=== PATIENT | male | born 1950 | race Caucasian/White ===

== ENCOUNTER 2018-05-29 14:33 | Inpatient (IN) | payer MEDICARE, SELFPAY ==
[2018-05-23 11:11] VITALS: BP 128/61; PULSE 56; RESP 18; TEMP 36.7; O2SAT 99; BMI 27.1
[2018-05-23 12:25] LABS: ALB/GLOB Ratio 0.9 RATIO (0.9-2.4); AST(SGOT) 23 U/L (15-37); Alanine Aminotransfer ALT/SGPT 27 U/L (16-61); Albumin, Serum 3.5 g/dL (3.2-5.0); Alkaline Phosphatase 68 U/L (45-117); Anion Gap 7 (5-15); BUN 16 mg/dL (7-18); BUN/Creat Ratio 18.2 RATIO (10-20); Calcium,Total 9.1 mg/dL (8.5-10.1); Chloride 107 mmol/L (98-107); Creatinine, Serum 0.88 mg/dL (0.70-1.30); EST Glomerular Filtration Rate 92 mL/min (>60); Est Glom Filt Rate - Afr Amer 111 mL/min (>60); Estimated Creatinine Clearance 82.95 ml/min; Glucose 103 mg/dL (74-106); Potassium 4.1 mmol/L (3.5-5.1); Protein, Total 7.5 g/dL (6.4-8.2); Sodium Level 139 mmol/L (136-145)
[2018-05-23 14:06] LABS: Absolute Lymphocyte Count 1.96 X10^3/ul (0.83-4.51); Absolute Neutrophil Count 4.9 X10^3/uL (2.0-7.7); Basophil# 0.02 X10^3/uL; Basophil% 0.3 % (0-1); Eosinophil# 0.23 X10^3/uL; Eosinophils% 2.9 % (0-5); Hematocrit 44.7 % (40-54); Lymphocyte # 1.96 X10^3/ul (4.0); Lymphocyte % 25.1 % (19-41); Mean Corp Hgb Conc 33.6 g/gl (32-36); Mean Corpuscular Hgb 31.8 pg (27.0-32.0); Mean Corpuscular Volume 94.7 fL (80-94); Mean Platelet Vol. 10.2 fl (6.2-12.0); Monocyte# 0.69 X10^3/uL; Monocyte% 8.8 % (0-10); Neutrophil # 4.87 X10^3/uL (2.7-7.7); Neutrophil % 62.5 % (47-70); Platelet Count 176 K/mm3 (150-450); RBC Distribution Width CV 13.6 % (11.6-14.6); RBC Distribution Width SD 45.9 fl (35.1-43.9); Red Blood Count 4.72 M/mm3 (4.6-6.2); White Blood Count 7.8 K/mm3 (4.4-11.0)
[2018-05-23 14:07] LABS: POSITIVE COUNT NO; POSITIVE DIFFERENTIAL NO; POSITIVE MORPHOLOGY NO
[2018-05-29] VITALS (14 sets, daily range): BP systolic 74–130; BP diastolic 49–93; PULSE 63–118; RESP 15–18; TEMP 35.3–36.5; O2SAT 40–100; BMI 26.8
--- NOTE | 2018-05-29 | KID_PTH ---
PATIENT: HEATHER ESTRADA LOC: [facility] U#:[id number] AGE/SX: 68/M ROOM: [facility] RE05/29/[address]: Dr. Claude Khan MD : 1950 BED: 1 DIS: 06/03/2018 SPEC #: [id number] RECD: 05/30/18 12:13 STATUS: JOSE REDarlene #: [id number] JOANIE: 05/29/18 00:[address]: Claude Khan DEPT: SURGICAL PATHOLOGY RECD BY: Stephen Garces ENTERED: 05/30/18 12:14 SP TYPE: KIDNEY OTHR DR: MD Dr. Kenton Abernathy MD Tissues: A - Kidney, NOS B - Kidney, NOS Procedures: Surgery Specimen Level V HEADER OPERATION: Laparoscopic robotic partial left nephrectomy PRE-OP DIAGNOSIS: Left renal mass TISSUE SUBMITTED: A) Left partial nephrectomy, B) Left complete nephrectomy MICROSCOPIC DIAGNOSIS A. Left renal mass, partial nephrectomy: Clear cell renal cell carcinoma. See comment below. B. Left kidney, radical nephrectomy: Mild arterionephrosclerosis and minimal chronic inflammation. No evidence of malignancy. See comment below. ROE:taylor 06/03/18 COMMENT KIDNEY CANCER SUMMARY (COMBINED SPECIMENS A and B): Procedure - Specimen A- partial nephrectomy, Specimen B-radical nephrectomy Specimen laterality - Left Tumor site - Middle Tumor size ? Greatest dimension 5.5 cm Additional dimensions 5 x 5 cm Tumor focality ? Unifocal Macroscopic extent of tumor ? tumor limited to kidney Histologic type - clear cell renal cell carcinoma Sarcomatoid features ? Not identified Histologic grade (Vera nuclear grade) ? G2 Microscopic tumor extension ? Tumor limited to kidney Margins ? Margins uninvolved by invasive carcinoma Lymph-Vascular invasion ? Not identified Regional Lymph Nodes pNX: Regional lymph nodes cannot be assessed. No lymph nodes identified. Pathologic findings in nonneoplastic kidney - Mild arterionephrosclerosis and mild chronic inflammation. PATHOLOGIC STAGE: pT1b, NX, MX The above summary is in compliance with [employer] (CAP) Cancer Protocols Checklist and [place] Joint Committee on Cancer (AJCC), Staging Manual, 8th Ed. MICROSCOPIC DESCRIPTION Slides are reviewed. GROSS DESCRIPTION A ? Received in fixative is one container labeled with the patient's name and designated left renal mass. The specimen consists of an ovoid pink-watkins mass measuring 5.2 x 5 x 5 cm and weighing 49.6 grams. Portions of this mass appear to consist of renal parenchyma that is inked blue and perinephric fat. The renal parenchyma is inked blue. The remainder of the specimen is inked in black. Sections of the mass reveal watkins-yellow hemorrhagic cut surfaces. City Editor sections are submitted in 7 cassettes as follows: 1-2 - Tumor in relationship to inked presumed renal parenchyma, 3 - Tumor in relationship to perinephric fat, inked, 4-8 - Additional sections of tumor. B - Received in fixative is one container labeled with the patient's name and designated left nephrectomy. The specimen consists of a kidney that is surrounded by yellow fatty tissue. The specimen measures 21 x 15 x 8.5 cm and weighs 883 grams and consists of a kidney measuring 12 x 6 x 5.2 cm. A 3.5 cm segment of distal ureter is present. Dissection of the veins does not reveal intravascular presence of neoplasm. The renal pelvis and renal sinuses are grossly unremarkable. In the hilum of the kidney is an area of disruption with clotted blood measuring 8 x 5 x 3 cm. Dissection of this area does not reveal mass lesions. Dissection of the pelvocaliceal system does not reveal mass lesions. Dissection of the kidney proper does not reveal mass lesions. Sections of the perinephric fat do not reveal mass lesions. 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 City Editor sections are submitted as follows: 1 - Ureteric and vascular margins of resection, 2 - Renal sinus, 3 - Renal pelvis, 4 & 5 - Perinephric fat, 6-7 - Kidney. AM:sp 05/31/18 TC: 0 CPT: 89813 x2
[2018-05-29] MEDS: Cefazolin 2 GM in 0.9% Normal Saline 100 ML IV (14:37)
[2018-05-29] MEDS: Bupivacaine Mpf 0.5% 30 ML VIAL (18:52)
--- NOTE | 2018-05-29 18:55 | PCM.OPRPT ---
Report of Operation Date of Procedure: 05/29/18 Pre-Operative Diagnosis: Left large renal mass Post-Operative Diagnosis: Same Surgery/Procedure Performed:: Left laparoscopic robotic assisted partial nephrectomy intraoperative ultrasound Description of Surgical Findings:: 68-year-old male was found to have a 5 cm tumor in the upper pole anterior of the left kidney the tumor is near the hilum but amenable to a partial nephrectomy therefore recommended we proceed with a laparoscopic robotic assisted partial nephrectomy we also talked about the possibility of having to radical nephrectomy. 68-year-old male taken back to the operating room after smooth induction of general anesthesia he was placed supine on the table he underwent an intubation Fabian catheter was placed patient was then positioned full flank left side up the abdomen was shaved prepped and draped in usual sterile fashion I went into the made in the small incision in this and the skin and then use a Veress needle and into the entered the peritoneal cavity filled the peritoneal cavity with CO2 gas I then placed a camera trocar into the peritoneal cavity I then placed my left robotic trocar my right robotic trocar and an and a second right robotic trocar to help with retracting the hilum. We then placed an air seal port by the umbilicus and we proceeded with the dissection first the colon was identified the white line of Toldt was was identified we incised the white line of Toldt and reflected the colon off the kidney felt following the plane between the colon fat and the Gerota's fat once the colon was completely released off the kidney laterally than went back to the kidney dissected the colon off and eventually I encountered the tail of the Gerota's fascia identified the gonadal vein and ureter elevated this up and then dissected underneath the Gerota's fat fat and because of the psoas muscle March my way up along the aorta and eventually identified the renal vein I then identified the renal artery which is superior to the renal vein and the renal artery was freed enough to allow for clip to go on it then once the hilum was dissected out the renal artery was identified and dissected out then I went to the kidney and went to the tumor and used for intraoperative ultrasound to ultrasound to do performed ultrasonography of the kidney took some time to identify the tumor that was coming off in the anterior pole facing medially I then opened up the fascia over the Gerota's fascia down dissected down to the kidney parenchyma and then I dissected the fat off the kidney until I got to the tumor edge then I dissected the fat off the tumor itself. Then I dissected the anterior portion of the tumor off the kidney capsule posterior was very hard to get to it was an anterior tumor right at the hilum right next to the vein and right next to the artery I had to retract the tumor away from the vein artery to dissect medially. Once I then done and left dissection to start the procedure anteriorly I used the ultrasound to luis fernando out my approach to the tumor making sure that I would have a complete negative margin and was deep enough into the kidney I then clamped the artery with a long bulldog and also use a short bulldog the double clamp the renal artery with this then the started the cutting into the parenchyma following the markings on the capsule of the kidney and went deep into the kidney deep into the sinus and then started rolling the tumor out of the kidney either retract the renal vein and artery medially and then dissected along this plane between the tumor and renal artery and vein cutting the renal tumor off the renal artery and vein and then transected the posterior aspect of the capsule and then the tumor was free completely a defect was in the anterior upper pole of the kidney the tumor was immediately put in Endo Catch bag I then ran the base of the resection with 3-0 Vicryl and V lock stitches so I had her run the base to close it up very nicely I then placed FloSeal in the base and Surgicel and bolster stitches, the bulldog on the artery was removed and the blood supply to the kidney was restored there was good flow to the kidney and no bleeding from the resection site we then transferred the end of the tail of the Endo Catch back to the extraction site we extracted the tumor through the lower lower lower abdominal port site we had to open up this port site about 3 cm and then we closed the port site with interrupted 0 Vicryls I checked the tumor then and the tumor was and and visual inspection had complete resection with no violation of the tumor a good margin in the base so so grossly was a complete resection and this will be sent off for pathology after closing the extraction site and then we went back into the abdomen we inspected inspected the resection site there is no bleeding I covered the kidney back up with the Gerota's fat and stitch to back over the kidney to keep the kidney practice protected it was about 15 minutes to extract the tumor and in that time there is no pneumoperitoneum and there was no bleeding from the resection site. We then closed the variceal port with a 1012 Trace Reynolds stitch and then we closed the camera port with a Trace Reynolds stitch using 0 Vicryl we then all the port sites were closed with subcuticular stitches the patient's anesthetic is currently being reversed is clinically stable think back to PACU in good condition. Type of Anesthesia:: General Drains: fabian Estimated Blood Loss (mL): 500cc - Admit VTE Documentation VTE Present on Admission: No VTE Mechan Device Prophylaxis: SCD's VTE Pharm Prophylaxis ordered?: No
[2018-05-29 19:46] LABS: Hematocrit 40.2 % (40-54); Hemoglobin 13.5 g/dl (13.0-16.5); Mean Corp Hgb Conc 33.6 g/gl (32-36); Mean Corpuscular Hgb 32.5 pg (27.0-32.0); Mean Corpuscular Volume 96.9 fL (80-94); Mean Platelet Vol. 9.4 fl (6.2-12.0); Platelet Count 207 K/mm3 (150-450); RBC Distribution Width CV 14.1 % (11.6-14.6); RBC Distribution Width SD 48.2 fl (35.1-43.9); Red Blood Count 4.15 M/mm3 (4.6-6.2); Scan Indicated on CBC? Y/N NO; White Blood Count 12.3 K/mm3 (4.4-11.0)
[2018-05-29 19:59] LABS: Anion Gap 10 (5-15); BUN 14 mg/dL (7-18); BUN/Creat Ratio 12.6 RATIO (10-20); Calcium,Total 8.5 mg/dL (8.5-10.1); Chloride 109 mmol/L (98-107); Creatinine, Serum 1.11 mg/dL (0.70-1.30); EST Glomerular Filtration Rate 70 mL/min (>60); Est Glom Filt Rate - Afr Amer 85 mL/min (>60); Estimated Creatinine Clearance 65.77 ml/min; Glucose 159 mg/dL (74-106); Potassium 4.5 mmol/L (3.5-5.1); Sodium Level 142 mmol/L (136-145)
[2018-05-29] MEDS: Ketorolac 15 MG/ML Vial IV (20:00)
[2018-05-29] MEDS: 0.45% Normal Saline 1,000 ML 75 ML IV (20:15)
--- NOTE | 2018-05-29 22:31 | PCM.PN.BLA ---
Progress Note 68-year-old male status post a partial nephrectomy with a hilar tumor, surgery went well and was dry during the case only 500 cc blood loss. In the PACU his hemoglobin was 13 he was transferred to the floor in good condition and then within an hour he deteriorated blood pressure dropped suddenly required fluid boluses became diaphoretic and pale at this point I have called in the team and we have taken back for emergency exploration for postoperative bleeding appears to be bleeding from the operative site.
--- NOTE | 2018-05-29 22:31 | NURSING ---
Dr. Khan here to see patient, will take to OR, bp keeps dropping 68/41, heart rate now 118.
[2018-05-29] MEDS: 0.9% Normal Saline 1,000 ML 999 ML IV (22:37)
[2018-05-29 22:40] LABS: Hematocrit 30.3 % (40-54); Hemoglobin 9.8 g/dl (13.0-16.5)
--- NOTE | 2018-05-29 23:21 | NURSING ---
Called patient's brother Adán Jean Baptiste, located in [place]. Informed him that his brother was taken back to OR at approximately 2300. He asked to be called with updates after OR on his cell phone. He said it would be okay to leave a message on cell phone.
[2018-05-30] VITALS (60 sets, daily range): BP systolic 61–151; BP diastolic 42–98; PULSE 57–103; RESP 13–27; TEMP 35.2–37.3; O2SAT 94–100
--- NOTE | 2018-05-30 00:51 | NURSING ---
Telephone report given to ELMER Wayne in ICU.
--- NOTE | 2018-05-30 01:13 | NURSING ---
Pt arrives to ICU 5 with Trista PAYNE, Dr. Khan, Dr. Vivas, and anesthesiologist. Pt intubated and ventilated without distress.
--- NOTE | 2018-05-30 01:28 | PCM.OPRPT ---
Report of Operation Date of Procedure: 05/29/18 Pre-Operative Diagnosis: Left large renal mass Post-Operative Diagnosis: Same Surgery/Procedure Performed:: Exploratory laparotomy and completion nephrectomy, radical nephrectomy Description of Surgical Findings:: 68-year-old male who had 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 At the end of the case there was no bleeding from the nephrectomy site patient was stable was transferred to the PACU in good condition his hemoglobin and PACU was measured it was 13 blood pressure was stable was transferred to the floor I was then called later on a few hours on the floor about 2 or 2-1/2 hours after surgery and was reported to have severe hypotension CBC was done and his hemoglobin was down to 9.8 but he was hypotensive despite fluid resuscitation. Therefore spoke to the patient and recommended we taken back emergently to surgery for exploratory laparotomy and explained to the patient if can stop the bleeding from the kidney most likely will need to have her nephrectomy. 68-year-old male was taken back to the operating room in emergent fashion is placed supine on the table he underwent anesthesia and intubation by Dr. Short, the abdomen was already shaved we prepped and draped in usual sterile fashion I then went into the old camera trocar the from the prior surgery open up the stitch put my finger inside the abdomen and then opened up the abdomen through a subcostal incision cutting through the muscle layer and entering the peritoneal cavity we then packed off the bowel and immediately opened up a significant amount of bleeding in the retroperitoneum this was evacuated out and sucked off repacked out the belly we then removed the packs we went to the kidney and there was bleeding from the kidney itself it was difficult to tell exactly where the bleeding was coming from but it was very apparent that is coming from the nephrectomy partial nephrectomy site therefore since we could get this under control best option at this point was to be a completion nephrectomy the artery was already dissected out I located place a suture around the artery tied it down this immediately stopped a lot of the hemorrhage I then placed a second suture on the artery and then transected the artery we then transected 1 of the veins put a clip on it and then transected the main renal vein. I then went behind the kidney dissected the kidney off the lateral sidewall dissected inferiorly and the tail of Gerota's fascia transected through the gonadal and the ureter put clips on both of these and then dissected further up towards the splenorenal limit ligament and freed the kidney off the off its bed and then the kidney was taken out of the abdomen we then packed the retroperitoneum again we inspected and there was no bleeding this time we did place some Gelfoam in the hilum but there was no bleeding from the hilum the spleen was intact and there was no bleeding above the spleen or in the retroperitoneum anesthesia was catching up he did get some fluid he got 2 units of packed red blood cell his hemoglobin was pending at this point his blood pressure was stable but he was in critical condition so we left him intubated and is taken back to the PACU in critical but stable condition for further resuscitation we closed the abdomen with running layer of Vicryl in the first layer the second layer we closed it with #1 PDS and then closed the skin with elaina. Dr. de paz of the general surgeon assisted me with the case and assisted with the exploratory laparotomy. Type of Anesthesia:: General Drains: fabian Estimated Blood Loss (mL): 3000 - Admit VTE Documentation VTE Present on Admission: Yes VTE Mechan Device Prophylaxis: SCD's VTE Pharm Prophylaxis ordered?: No
[2018-05-30 01:35] LABS: Base Excess -7 mmol/L (-2 to +2); Bicarbonate 19.5 mmol/L (22-26); Blood Gas Specimen Type ALINE; FI02 100; Mode A-C; O2 Delivery Device Vent; PEEP 5; PO2 227 mmHG (75-100); RR 14; SITE L Radial; SO2 100 % (95-99); Time Given 125; Total Carbon Dioxide 21 mmol/L; Vt 500; pCO2 39.6 mmHg (35-45)
--- NOTE | 2018-05-30 01:35 | NURSING ---
Dr Rodríguez placing Left radial art line at this time.
[2018-05-30 01:38] LABS: Absolute Lymphocyte Count 0.67 X10^3/ul (0.83-4.51); Absolute Neutrophil Count 10.4 X10^3/uL (2.0-7.7); Basophil# 0.01 X10^3/uL; Basophil% 0.1 % (0-1); Eosinophil# 0.02 X10^3/uL; Eosinophils% 0.2 % (0-5); Hematocrit 26.2 % (40-54); Hemoglobin 8.8 g/dl (13.0-16.5); Lymphocyte # 0.67 X10^3/ul (4.0); Lymphocyte % 5.4 % (19-41); Mean Corp Hgb Conc 33.6 g/gl (32-36); Mean Corpuscular Volume 95.3 fL (80-94); Mean Platelet Vol. 9.3 fl (6.2-12.0); Monocyte# 1.15 X10^3/uL; Monocyte% 9.3 % (0-10); Neutrophil # 10.42 X10^3/uL (2.7-7.7); Neutrophil % 84.2 % (47-70); Platelet Count 108 K/mm3 (150-450); RBC Distribution Width CV 13.8 % (11.6-14.6); RBC Distribution Width SD 45.4 fl (35.1-43.9); Red Blood Count 2.75 M/mm3 (4.6-6.2); White Blood Count 12.4 K/mm3 (4.4-11.0)
[2018-05-30 01:45] LABS: POSITIVE COUNT NO; POSITIVE DIFFERENTIAL NO; POSITIVE MORPHOLOGY NO
[2018-05-30 01:55] LABS: Anion Gap 9 (5-15); BUN 17 mg/dL (7-18); BUN/Creat Ratio 12.4 RATIO (10-20); Calcium,Total 6.5 mg/dL (8.5-10.1); Chloride 115 mmol/L (98-107); Creatinine, Serum 1.37 mg/dL (0.70-1.30); EST Glomerular Filtration Rate 55 mL/min (>60); Est Glom Filt Rate - Afr Amer 66 mL/min (>60); Estimated Creatinine Clearance 53.28 ml/min; Glucose 165 mg/dL (74-106); Potassium 5.4 mmol/L (3.5-5.1); Sodium Level 143 mmol/L (136-145)
[2018-05-30] MEDS: Propofol 10MG/Ml 1,000 MG/100 ML Bottle 2.545 MG CONT INF (02:09)
[2018-05-30] MEDS: Lactated Ringers 1,000 ML 125 ML IV ×3 (02:09→17:43)
--- NOTE | 2018-05-30 03:38 | PCM.PN.BLA ---
Progress Note 68-year-old male status post reexploration and nephrectomy for bleeding after partial nephrectomy his blood pressure still very labile he is receiving blood last blood work was reviewed his urine output is barely adequate he still on the ventilator alert and awake he still shaking yes or no and answering questions appropriately but he is on blood pressures to keep his blood pressure up so I requested general surgery to place an central line which the states will come in and do this tonight. On examination he is alert he is answering questions properly is on the ventilator his abdomen soft and benign not distended pulses are very weak in the periphery. I did speak to his brother and updated his brother regarding the critical condition that the patient is in and his brother states he is going to come and see him tomorrow his brother is from out of [place]. We will continue with full supportive measures.
--- NOTE | 2018-05-30 03:48 | NURSING ---
Dr. Mcelroy at bedside preparing for central line placement. Dr. Khan in unit as well. Time out performed, pt and procedure verified.
--- NOTE | 2018-05-30 04:15 | NURSING ---
Successful line placement to [facility] by Dr. Mcelroy. Pt lizy well, CXR ordered.
[2018-05-30 05:13] LABS: CPK Total, Creatine Kinase 2991 U/L (39-308); Triglycerides 26 mg/dL
[2018-05-30] MEDS: 0.9% NaCl Peripheral Flush Adult/Peds IV ×10 (05:17→21:56)
--- NOTE | 2018-05-30 05:23 | PCM.PN.BLA ---
Progress Note PROCEDURE NOTE Asked to place central line by Dr. Khan for his patient in ICU, hypotension and postoperative hemorrhage requiring completion nephrectomy Patient is in ICU and intubated, he is understanding and gives his consent for procedure - placement of triple lumen central line catheter Appropriate time out protocol followed. Patient placed in Trendelenburg position. Left upper chest and neck area prepped with surgical skin preparation and sterile surgical drapes placed Skin and subcutaneous tissues were infiltrated with local anesthetic. After ascertaining landmarks, attempts were made to access left subclavian vein. This was unsuccessful. Therefore, left IJ approach was done. A needle trocar was inserted into left internal jugular vein and there was good aspiration of venous blood. A wire was then inserted into the trocar. A small skin lilibeth was made with an 11 blade scalpel. The dilator was introduced into the left IJ via the Seldinger technique. The dilator was then removed and the triple lumen catheter was placed in the left IJ. The catheter was then capped. All three ports were aspirated and there was good return of blood and all ports were flushed with saline. The hub was sutured to the skin. Sterile dressing was applied. Post procedure chest xray - tip is in innominate vein, no pneumothorax noted. Patient tolerated procedure well. .
[2018-05-30 05:36] LABS: Base Excess -9 mmol/L (-2 to +2); Bicarbonate 17.1 mmol/L (22-26); Blood Gas Specimen Type ALINE; FI02 35; Mode A-C; O2 Delivery Device Vent; PEEP 5; PO2 149 mmHG (75-100); RR 14; SITE L Radial; SO2 99 % (95-99); Time Given 524; Total Carbon Dioxide 18 mmol/L; Vt 550; pCO2 32.8 mmHg (35-45); pH 7.32 (7.35-7.45)
[2018-05-30 06:51] LABS: Hematocrit 33.9 % (40-54); Hemoglobin 11.4 g/dl (13.0-16.5); Mean Corp Hgb Conc 33.6 g/gl (32-36); Mean Corpuscular Hgb 31.1 pg (27.0-32.0); Mean Corpuscular Volume 92.4 fL (80-94); Mean Platelet Vol. 10.1 fl (6.2-12.0); Platelet Count 107 K/mm3 (150-450); RBC Distribution Width CV 14.5 % (11.6-14.6); RBC Distribution Width SD 48.4 fl (35.1-43.9); Red Blood Count 3.67 M/mm3 (4.6-6.2); White Blood Count 13.5 K/mm3 (4.4-11.0)
[2018-05-30 07:01] LABS: Scan Indicated on CBC? Y/N NO
[2018-05-30 07:02] LABS: International Normalized Ratio 1.3; Prothrombin Time (Protime)PT. 16.1 SECONDS (11.7-14.9)
[2018-05-30 07:04] LABS: Anion Gap 13 (5-15); BUN 20 mg/dL (7-18); Calcium,Total 7.2 mg/dL (8.5-10.1); Chloride 112 mmol/L (98-107); Creatinine, Serum 1.67 mg/dL (0.70-1.30); EST Glomerular Filtration Rate 44 mL/min (>60); Est Glom Filt Rate - Afr Amer 53 mL/min (>60); Estimated Creatinine Clearance 43.71 ml/min; Glucose 145 mg/dL (74-106); Sodium Level 143 mmol/L (136-145)
--- NOTE | 2018-05-30 07:07 | PCM.PN.BLA ---
Progress Note 68-year-old male who underwent a partial nephrectomy yesterday, then I had taken back emergently to the operating room for a completion nephrectomy secondary to bleeding from the resection site, the tumor was right at the hilum right with the vessels were. In surgery we found extensive amount of hemorrhage within the abdomen really never identified the bleeder from the nephrectomy bed but assume that there was significant bleeder in the bed of the kidney from where the tumor was resected. Had to do an emergency completion nephrectomy last night. Transferred to the ICU kept on the ventilator for to protect his airway and to resuscitate him an A-line was placed central line was placed for Carmel this morning his blood pressure is much better. He is received 4 units of blood some crystalloid hemoglobin this morning looks good urine output is marginal probably needs more crystalloid appears to be breathing well and strong on the vent probably can be extubated will leave this up to ICU Dr. On examination he is alert and oriented ?2 he can communicate his right and then tablets, tolerating the ventilator okay, his abdomen soft and benign no bowel sounds incisions are clean and intact bandages are in place as a Chris catheter in place the urine is light yellow color, good pulses in all extremities,. 68-year-old male status post partial nephrectomy with completion nephrectomy emergently for postoperative bleeding. Appears to be resuscitating okay from surgery last night probably will need low more crystalloid since his urine output slightly marginal may require another unit or 2 of blood will see how the blood results dilute out. Extubation per ICU, I do not anticipate having to give him more antibiotics he got antibiotics for the procedure. We will continue to monitor closely anticipate him being in the ICU 1 more day.
[2018-05-30 07:09] LABS: Partial Thromboplast Time 24.3 Seconds (24.1-36.2)
[2018-05-30 07:31] LABS: Base Excess -6 mmol/L (-2 to +2); Blood Gas Specimen Type ALINE; FI02 30; Mode CPAP PS; O2 Delivery Device Vent; PEEP 5; PO2 135 mmHG (75-100); PS 5; SITE OTHER; SO2 99 % (95-99); Time Given 724; Total Carbon Dioxide 20 mmol/L; pCO2 33.4 mmHg (35-45); pH 7.36 (7.35-7.45)
[2018-05-30] MEDS: Lactated Ringers 1,000 ML 999 ML IV (08:15)
[2018-05-30] MEDS: fentaNYL 100 MCG/2 ML Ampul 25 MCG IV ×6 (09:58→21:56)
[2018-05-30] MEDS: Latanoprost 0.005% 1 Bottle 1 DRP EACH EYE (10:00)
[2018-05-30] MEDS: BRIMONIDINE 0.2% 5ML BOTTLE 1 DRP EACH EYE ×2 (10:00→21:05)
--- NOTE | 2018-05-30 10:03 | PCM.CON.CC ---
Problem List (1) Renal malignant tumor Status: Acute Qualifiers: Laterality: left Qualified Code(s): C64.2 - Malignant neoplasm of left kidney, except renal pelvis (2) Glaucoma Status: Acute (3) Acute blood loss as cause of postoperative anemia Status: Acute Reason for Consult Date of Consultation: 05/30/18 Reason for Consultation: Respiratory failure History of Present Illness: The patient is a 68 year old M, with past medical history listed below, who presented to [facility] on 05/29/2018 secondary to an elective partial nephrectomy secondary to probable renal cancer. Patient went through initial surgical procedure without complication. However, throughout the day, patient had reported increasing pain and decreasing blood pressure. Patient was also noted to be diaphoretic and was taken back for an emergency exploratory procedure. Upon reexploration, patient had to be converted to a full nephrectomy. Patient had an estimated 3-4 L of blood loss throughout the situation. Patient received 4 units of packed red blood cells, 1 unit of FFP and had to be initiated on Levophed therapy secondary to hypotension. Patient was transferred to the intensive care unit overnight intubated on pressor therapy. However, patient was able to qualify for a spontaneous breathing trial this morning. Patient was able to tolerate 1 hour and ABG at the end showed improved metabolic acidosis. Patient was successfully liberated from the ventilator without difficulty. Patient has been able to be weaned on Levophed therapy to off. Patient does report some pain in the area of surgical evaluation. Patient denies any passing of gas, but states I feel some grumbling. Patient reports a history of glaucoma for which she takes eyedrops. Otherwise, patient denies any medical issues. Patient states that this mass was noted in [place]. Patient does not use any assistive devices at baseline. At approximately 10 AM, patient started to complain of bilateral shoulder pain. An EKG was obtained showing no significant change compared to previous. Patient did have a troponin showing a slight elevation. This will be cycled. Patient was not started on anticoagulation secondary to recent surgery. Past Medical History Allergies No Known Allergies Allergy (Verified 05/29/18 12:11) Home Medications: Ambulatory Orders Medication Instructions Recorded Brimonidine 0.15% [Alphagan P 1 drop EACH EYE TID 05/23/18 0.15%] Latanoprost [Latanoprost] 1 drop EACH EYE DAILY 05/23/18 Timolol [Betimol] 1 drop EACH EYE DAILY 05/23/18 Docusate Sodium [Colace] 100 mg PO BID #20 cap 05/29/18 Hydrocodone/Acetaminophen [Vicodin 1 tab PO Q4H PRN PRN 5 Days #14 tab 05/29/18 5-300 mg Tablet] Surgical History: no surgical history Psychiatric History: No pertinent psych hx Smoking Status: Former smoker Alcohol: Heavy - Drinks 2 vodka drinks on a daily basis Drugs: None - *Family History Maternal History Items: No pertinent history Review of Systems Comment: See HPI, otherwise negative ?10 systems Patient Problems: Active and Suspected Problems Renal malignant tumor (Acute) Glaucoma (Acute) Acute blood loss as cause of postoperative anemia (Acute) Objective: Chest x-ray was personally reviewed and shows supportive devices in appropriate positions. No infiltrate was appreciated. - Physical Exam General: Alert, Oriented x3, Cooperative, No apparent distress, - - Speaking in full sentences following extubation HEENT: Atraumatic, PERRLA, EOMI, Normocephalic, - - No scleral icterus or injection noted Oral: Moist Mucosa, No Gingival or Mucosal Lesions/ Ulcerations Neck: Supple, No JVD, No Nodes, Trachea Midline Lungs: No rhonchi, No wheeze, No rales, Diminished - Bilateral bases, - - Symmetric expansion. Some coughing with deep inhalation Cardiovascular: Regular rate, Regular Rhythm, Normal S1, Normal S2, No murmurs, No rub noted, No Gallop Abdomen: Soft, Hypoactive Bowel Sounds, Distended - Slightly, Tender - No rebound or guarding noted Extremities: No clubbing, No cyanosis, No edema, Capillary Refill Less than 3 Seconds Skin: Incision - Clean, dry and intact Musculoskeletal: No Tenderness to Palpation of Joints or Extremities, No Muscle Wasting Lymphatic: No Cervical, Supraclavicular, or Inguinal Adenopathy Neurological: Cranial nerves II-XII grossly intact, Neuro grossly intact, Motor Exam 5/5 strength throughout Psych/Mental Status: Alert and oriented to time, place, person, mood and affect Vital Signs Temp Pulse Resp BP Pulse Ox 35.6 C L 79 16 122/78 H 99 05/30/18 04:18 05/30/18 07:35 05/30/18 07:35 05/30/18 07:00 05/30/18 07:35 Oxygen Flow Rate (L/min) 2 Oxygen Delivery Method Room Air Weight: 90.5 kg Body Mass Index (BMI) 26.8 Intake and Output for Last 24 Hours 05/28/18 05/29/18 05/30/18 23:59 23:59 23:59 Intake Total 4925 / 4925 2653.8 / 2653.8 Output Total 250 / 250 140 / 140 Balance 4675 / 4675 2513.8 / 2513.8 Laboratory Tests Past 24 Hrs 05/29/18 05/29/18 05/29/18 12:20 12:20 12:20 WBC RBC Hgb Hct MCV MCH MCHC RDW RDW Differential Plt Count MPV Immature Gran % (Auto) Neut % (Auto) Lymph % (Auto) [place] % (Auto) Eos % (Auto) Baso % (Auto) Absolute Neuts (auto) Absolute Lymphs (auto) Total Counted PT INR APTT Specimen Type Sample Site pH Bicarbonate Actual POC Total CO2 Base Excess O2 Saturation O2 % ABG pCO2 ABG pO2 Jeronimo Test Respiration Rate O2 Delivery Device Minute Volume Vent Mode Tidal Volume POC PEEP POC Pressure Suppt Blood Gas Notified Whom Blood Gas Notified Time Sodium Potassium Chloride Carbon Dioxide Anion Gap BUN Creatinine Estim Creat Clear Calc Est GFR (MDRD) Af Amer Est GFR (MDRD) Non-Af BUN/Creatinine Ratio Glucose Calcium Total Creatine Kinase Troponin I Triglycerides MRSA (PCR) Blood Type A POSITIVE Antibody Screen NEGATIVE Crossmatch See Detail See Detail 05/29/18 05/29/18 05/29/18 19:37 19:37 22:31 WBC 12.3 H RBC 4.15 L Hgb 13.5 9.8 L Hct 40.2 30.3 L MCV 96.9 H MCH 32.5 H MCHC 33.6 RDW 14.1 RDW Differential 48.2 H Plt Count 207 MPV 9.4 Immature Gran % (Auto) Neut % (Auto) Lymph % (Auto) [place] % (Auto) Eos % (Auto) Baso % (Auto) Absolute Neuts (auto) Absolute Lymphs (auto) Total Counted PT INR APTT Specimen Type Sample Site pH Bicarbonate Actual POC Total CO2 Base Excess O2 Saturation O2 % ABG pCO2 ABG pO2 Jeronimo Test Respiration Rate O2 Delivery Device Minute Volume Vent Mode Tidal Volume POC PEEP POC Pressure Suppt Blood Gas Notified Whom Blood Gas Notified Time Sodium 142 Potassium 4.5 Chloride 109 H Carbon Dioxide 23.0 Anion Gap 10 BUN 14 Creatinine 1.11 Estim Creat Clear Calc 65.77 Est GFR (MDRD) Af Amer 85 Est GFR (MDRD) Non-Af 70 BUN/Creatinine Ratio 12.6 Glucose 159 H Calcium 8.5 Total Creatine Kinase Troponin I Triglycerides MRSA (PCR) Blood Type Antibody Screen Crossmatch 05/30/18 05/30/18 05/30/18 01:30 01:30 01:30 WBC 12.4 H RBC 2.75 L Hgb 8.8 L Hct 26.2 L MCV 95.3 H MCH 32.0 MCHC 33.6 RDW 13.8 RDW Differential 45.4 H Plt Count 108 L MPV 9.3 Immature Gran % (Auto) 0.800 Neut % (Auto) 84.2 H Lymph % (Auto) 5.4 L [place] % (Auto) 9.3 Eos % (Auto) 0.2 Baso % (Auto) 0.1 Absolute Neuts (auto) 10.4 H Absolute Lymphs (auto) 0.67 L Total Counted Not Reportable PT INR APTT Specimen Type Sample Site pH Bicarbonate Actual POC Total CO2 Base Excess O2 Saturation O2 % ABG pCO2 ABG pO2 Jeronimo Test Respiration Rate O2 Delivery Device Minute Volume Vent Mode Tidal Volume POC PEEP POC Pressure Suppt Blood Gas Notified Whom Blood Gas Notified Time Sodium 143 Potassium 5.4 H Chloride 115 H Carbon Dioxide 19.0 L Anion Gap 9 BUN 17 Creatinine 1.37 H Estim Creat Clear Calc 53.28 Est GFR (MDRD) Af Amer 66 Est GFR (MDRD) Non-Af 55 L BUN/Creatinine Ratio 12.4 Glucose 165 H Calcium 6.5 L* Total Creatine Kinase 2991 H Troponin I Triglycerides 26 MRSA (PCR) Blood Type Antibody Screen Crossmatch 05/30/18 05/30/18 05/30/18 01:32 05:29 05:45 WBC RBC Hgb Hct MCV MCH MCHC RDW RDW Differential Plt Count MPV Immature Gran % (Auto) Neut % (Auto) Lymph % (Auto) [place] % (Auto) Eos % (Auto) Baso % (Auto) Absolute Neuts (auto) Absolute Lymphs (auto) Total Counted PT INR APTT Specimen Type RANDOLPH [place] Sample Site L Radial L Radial pH 7.30 L 7.32 L Bicarbonate Actual 19.5 L 17.1 L POC Total CO2 21 18 Base Excess -7 L -9 L O2 Saturation 100 H 99 O2 % 100 35 ABG pCO2 39.6 32.8 L ABG pO2 227 H 149 H Jeronimo Test NA NA Respiration Rate 14 14 O2 Delivery Device Vent Vent Minute Volume 8.00 10.00 Vent Mode A-C A-C Tidal Volume 500 550 POC PEEP 5 5 POC Pressure Suppt Blood Gas Notified Whom ICU MD ICU MD Blood Gas Notified Time 125 524 Sodium Potassium Chloride Carbon Dioxide Anion Gap BUN Creatinine Estim Creat Clear Calc Est GFR (MDRD) Af Amer Est GFR (MDRD) Non-Af BUN/Creatinine Ratio Glucose Calcium Total Creatine Kinase Troponin I Triglycerides MRSA (PCR) Pending Blood Type Antibody Screen Crossmatch 05/30/18 05/30/18 05/30/18 06:30 06:30 06:30 WBC 13.5 H RBC 3.67 L Hgb 11.4 L Hct 33.9 L MCV 92.4 MCH 31.1 MCHC 33.6 RDW 14.5 RDW Differential 48.4 H Plt Count 107 L MPV 10.1 Immature Gran % (Auto) Neut % (Auto) Lymph % (Auto) [place] % (Auto) Eos % (Auto) Baso % (Auto) Absolute Neuts (auto) Absolute Lymphs (auto) Total Counted PT 16.1 H INR 1.3 APTT 24.3 Specimen Type Sample Site pH Bicarbonate Actual POC Total CO2 Base Excess O2 Saturation O2 % ABG pCO2 ABG pO2 Jeronimo Test Respiration Rate O2 Delivery Device Minute Volume Vent Mode Tidal Volume POC PEEP POC Pressure Suppt Blood Gas Notified Whom Blood Gas Notified Time Sodium 143 Potassium 5.0 Chloride 112 H Carbon Dioxide 18.0 L Anion Gap 13 BUN 20 H Creatinine 1.67 H Estim Creat Clear Calc 43.71 Est GFR (MDRD) Af Amer 53 L Est GFR (MDRD) Non-Af 44 L BUN/Creatinine Ratio 12.0 Glucose 145 H Calcium 7.2 L Total Creatine Kinase Troponin I Triglycerides MRSA (PCR) Blood Type Antibody Screen Crossmatch 05/30/18 05/30/18 07:25 09:00 WBC RBC Hgb Hct MCV MCH MCHC RDW RDW Differential Plt Count MPV Immature Gran % (Auto) Neut % (Auto) Lymph % (Auto) [place] % (Auto) Eos % (Auto) Baso % (Auto) Absolute Neuts (auto) Absolute Lymphs (auto) Total Counted PT INR APTT Specimen Type RANDOLPH Sample Site OTHER pH 7.36 Bicarbonate Actual 19.0 L POC Total CO2 20 Base Excess -6 L O2 Saturation 99 O2 % 30 ABG pCO2 33.4 L ABG pO2 135 H Jeronimo Test Respiration Rate O2 Delivery Device Vent Minute Volume Vent Mode CPAP PS Tidal Volume POC PEEP 5 POC Pressure Suppt 5 Blood Gas Notified Whom ICU Blood Gas Notified Time 724 Sodium Potassium Chloride Carbon Dioxide Anion Gap BUN Creatinine Estim Creat Clear Calc Est GFR (MDRD) Af Amer Est GFR (MDRD) Non-Af BUN/Creatinine Ratio Glucose Calcium Total Creatine Kinase Troponin I 0.594 H Triglycerides MRSA (PCR) Blood Type Antibody Screen Crossmatch Clinical Impression(s) from Imaging Studies Chest X-Ray 05/23/18 11:21 IMPRESSION: Chronic interstitial changes, no superimposed acute pulmonary process Electronically Signed: Zaheer Villanueva MD at 12:21 EDT , Service support , Chest X-Ray 05/30/18 01:27 IMPRESSION: Endotracheal tube tip is 5.3 cm from yeimi, in appropriate position. Electronically Signed: Cleveland Wing MD at 2:05 EDT Tel , Service support , Chest X-Ray 05/30/18 04:09 IMPRESSION: Interval placement of enteric tube, tip in the fundus of the stomach. Interval placement of left central catheter, tip in region of innominate vein. No pneumothorax. Electronically Signed: Cleveland Wing MD at 5:23 EDT Tel , Service support , KUB X-Ray 05/30/18 04:09 IMPRESSION: Normal bowel gas pattern. Postoperative changes as described. Electronically Signed: Cleveland Wing MD at 5:26 EDT Tel , Service support , Assessment/Plan Active and Suspected Problems Renal malignant tumor (Acute) Glaucoma (Acute) Acute blood loss as cause of postoperative anemia (Acute) RECOMMENDATIONS: 1. Increase activity as tolerated 2. Discontinue fentanyl and propofol drips 3. Fentanyl every 2 as needed for pain 4. Bronchodilators only if needed 5. Recheck blood counts this afternoon 6. Serial troponins IMPRESSIONS: 1. Acute respiratory failure Patient was able to be successfully liberated from the ventilator earlier today. Patient is doing well on room air at this time. Patient does have a history of smoking, but is not diagnosed with COPD. Will give bronchodilators if necessary. ABG at the end of spontaneous breathing trial showed appropriate compensation for metabolic acidosis. Encourage incentive spirometer. Increase activity as tolerated. 2. Hemorrhagic shock status post partial nephrectomy Patient has received multiple blood products at this time. Patient does not appear to be in DIC. Blood pressure is much improved at this time and pressors have been discontinued. Patient has received significant amount of fluid, but urine output continues to be somewhat marginal. Total CK is elevated. 3. Acute kidney injury Patient with an elevated creatinine following surgery. Patient is not making significant amount of urine at this time. Patient currently is on room air, so will give aggressive fluid challenges. Patient has no indication for renal replacement therapy at this time. 4. Chest pain Patient reporting shoulder/chest pain shortly after extubation. Patient has had no change in hemodynamics or oxygenation to suggest a pneumothorax. Initial troponin is somewhat elevated. Unclear if this is residual from overnight events versus a new ongoing ischemia. Will hold off on anticoagulation at this time. Continue to monitor troponins. This may be a type II non-ST elevation AR that occurred during the acute hemorrhage in the partial nephrectomy. 5. Glaucoma Complicates care, management, recovery and prognosis. TIME: 40 minutes critical care time spent addressing patient's acute respiratory failure, hemorrhagic shock, acute kidney injury, review of all data and collaboration with care team (7 AM to 9 AM) Code Visit [id number]: [id number] Critical care first hour
[2018-05-30] MEDS: Famotidine 20mg IV Push Syringe Q24 300 MG IV (10:04)
--- NOTE | 2018-05-30 10:08 | CON.PCM_ITS ---
Problem List (1) Renal malignant tumor Status: Acute Qualifiers: Laterality: left Qualified Code(s): C64.2 - Malignant neoplasm of left kidney, except renal pelvis (2) Glaucoma Status: Acute (3) Acute blood loss as cause of postoperative anemia Status: Acute Reason for Consult Date of Consultation: 05/30/18 Reason for Consultation: Respiratory failure History of Present Illness: The patient is a 68 year old M, with past medical history listed below, who presented to [facility] on 05/29/2018 secondary to an elective partial nephrectomy secondary to probable renal cancer. Patient went through initial surgical procedure without complication. However, throughout the day, patient had reported increasing pain and decreasing blood pressure. Patient was also noted to be diaphoretic and was taken back for an emergency exploratory procedure. Upon reexploration, patient had to be converted to a full nephrectomy. Patient had an estimated 3-4 L of blood loss throughout the situation. Patient received 4 units of packed red blood cells, 1 unit of FFP and had to be initiated on Levophed therapy secondary to hypotension. Patient was transferred to the intensive care unit overnight intubated on pressor therapy. However, patient was able to qualify for a spontaneous breathing trial this morning. Patient was able to tolerate 1 hour and ABG at the end showed improved metabolic acidosis. Patient was successfully liberated from the ventilator without difficulty. Patient has been able to be weaned on Levophed therapy to off. Patient does report some pain in the area of surgical evaluation. Patient denies any passing of gas, but states I feel some grumbling. Patient reports a history of glaucoma for which she takes eyedrops. Otherwise, patient denies any medical issues. Patient states that this mass was noted in [place]. Patient does not use any assistive devices at baseline. At approximately 10 AM, patient started to complain of bilateral shoulder pain. An EKG was obtained showing no significant change compared to previous. Patient did have a troponin showing a slight elevation. This will be cycled. Patient was not started on anticoagulation secondary to recent surgery. Past Medical History Allergies No Known Allergies Allergy (Verified 05/29/18 12:11) Home Medications: Ambulatory Orders Medication Instructions Recorded Brimonidine 0.15% [Alphagan P 1 drop EACH EYE TID 05/23/18 0.15%] Latanoprost [Latanoprost] 1 drop EACH EYE DAILY 05/23/18 Timolol [Betimol] 1 drop EACH EYE DAILY 05/23/18 Docusate Sodium [Colace] 100 mg PO BID #20 cap 05/29/18 Hydrocodone/Acetaminophen [Vicodin 1 tab PO Q4H PRN PRN 5 Days #14 tab 05/29/18 5-300 mg Tablet] Surgical History: no surgical history Psychiatric History: No pertinent psych hx Smoking Status: Former smoker Alcohol: Heavy - Drinks 2 vodka drinks on a daily basis Drugs: None - *Family History Maternal History Items: No pertinent history Review of Systems Comment: See HPI, otherwise negative ?10 systems Patient Problems: Active and Suspected Problems Renal malignant tumor (Acute) Glaucoma (Acute) Acute blood loss as cause of postoperative anemia (Acute) Objective: Chest x-ray was personally reviewed and shows supportive devices in appropriate positions. No infiltrate was appreciated. - Physical Exam General: Alert, Oriented x3, Cooperative, No apparent distress, - - Speaking in full sentences following extubation HEENT: Atraumatic, PERRLA, EOMI, Normocephalic, - - No scleral icterus or injection noted Oral: Moist Mucosa, No Gingival or Mucosal Lesions/ Ulcerations Neck: Supple, No JVD, No Nodes, Trachea Midline Lungs: No rhonchi, No wheeze, No rales, Diminished - Bilateral bases, - - Symmetric expansion. Some coughing with deep inhalation Cardiovascular: Regular rate, Regular Rhythm, Normal S1, Normal S2, No murmurs, No rub noted, No Gallop Abdomen: Soft, Hypoactive Bowel Sounds, Distended - Slightly, Tender - No rebound or guarding noted Extremities: No clubbing, No cyanosis, No edema, Capillary Refill Less than 3 Seconds Skin: Incision - Clean, dry and intact Musculoskeletal: No Tenderness to Palpation of Joints or Extremities, No Muscle Wasting Lymphatic: No Cervical, Supraclavicular, or Inguinal Adenopathy Neurological: Cranial nerves II-XII grossly intact, Neuro grossly intact, Motor Exam 5/5 strength throughout Psych/Mental Status: Alert and oriented to time, place, person, mood and affect Vital Signs Temp Pulse Resp BP Pulse Ox 35.6 C L 79 16 122/78 H 99 05/30/18 04:18 05/30/18 07:35 05/30/18 07:35 05/30/18 07:00 05/30/18 07:35 Oxygen Flow Rate (L/min) 2 Oxygen Delivery Method Room Air Weight: 90.5 kg Body Mass Index (BMI) 26.8 Intake and Output for Last 24 Hours 05/28/18 05/29/18 05/30/18 23:59 23:59 23:59 Intake Total 4925 / 4925 2653.8 / 2653.8 Output Total 250 / 250 140 / 140 Balance 4675 / 4675 2513.8 / 2513.8 Laboratory Tests Past 24 Hrs 05/29/18 05/29/18 05/29/18 12:20 12:20 12:20 WBC RBC Hgb Hct MCV MCH MCHC RDW RDW Differential Plt Count MPV Immature Gran % (Auto) Neut % (Auto) Lymph % (Auto) [place] % (Auto) Eos % (Auto) Baso % (Auto) Absolute Neuts (auto) Absolute Lymphs (auto) Total Counted PT INR APTT Specimen Type Sample Site pH Bicarbonate Actual POC Total CO2 Base Excess O2 Saturation O2 % ABG pCO2 ABG pO2 Jeronimo Test Respiration Rate O2 Delivery Device Minute Volume Vent Mode Tidal Volume POC PEEP POC Pressure Suppt Blood Gas Notified Whom Blood Gas Notified Time Sodium Potassium Chloride Carbon Dioxide Anion Gap BUN Creatinine Estim Creat Clear Calc Est GFR (MDRD) Af Amer Est GFR (MDRD) Non-Af BUN/Creatinine Ratio Glucose Calcium Total Creatine Kinase Troponin I Triglycerides MRSA (PCR) Blood Type A POSITIVE Antibody Screen NEGATIVE Crossmatch See Detail See Detail 05/29/18 05/29/18 05/29/18 19:37 19:37 22:31 WBC 12.3 H RBC 4.15 L Hgb 13.5 9.8 L Hct 40.2 30.3 L MCV 96.9 H MCH 32.5 H MCHC 33.6 RDW 14.1 RDW Differential 48.2 H Plt Count 207 MPV 9.4 Immature Gran % (Auto) Neut % (Auto) Lymph % (Auto) [place] % (Auto) Eos % (Auto) Baso % (Auto) Absolute Neuts (auto) Absolute Lymphs (auto) Total Counted PT INR APTT Specimen Type Sample Site pH Bicarbonate Actual POC Total CO2 Base Excess O2 Saturation O2 % ABG pCO2 ABG pO2 Jeronimo Test Respiration Rate O2 Delivery Device Minute Volume Vent Mode Tidal Volume POC PEEP POC Pressure Suppt Blood Gas Notified Whom Blood Gas Notified Time Sodium 142 Potassium 4.5 Chloride 109 H Carbon Dioxide 23.0 Anion Gap 10 BUN 14 Creatinine 1.11 Estim Creat Clear Calc 65.77 Est GFR (MDRD) Af Amer 85 Est GFR (MDRD) Non-Af 70 BUN/Creatinine Ratio 12.6 Glucose 159 H Calcium 8.5 Total Creatine Kinase Troponin I Triglycerides MRSA (PCR) Blood Type Antibody Screen Crossmatch 05/30/18 05/30/18 05/30/18 01:30 01:30 01:30 WBC 12.4 H RBC 2.75 L Hgb 8.8 L Hct 26.2 L MCV 95.3 H MCH 32.0 MCHC 33.6 RDW 13.8 RDW Differential 45.4 H Plt Count 108 L MPV 9.3 Immature Gran % (Auto) 0.800 Neut % (Auto) 84.2 H Lymph % (Auto) 5.4 L [place] % (Auto) 9.3 Eos % (Auto) 0.2 Baso % (Auto) 0.1 Absolute Neuts (auto) 10.4 H Absolute Lymphs (auto) 0.67 L Total Counted Not Reportable PT INR APTT Specimen Type Sample Site pH Bicarbonate Actual POC Total CO2 Base Excess O2 Saturation O2 % ABG pCO2 ABG pO2 Jeronimo Test Respiration Rate O2 Delivery Device Minute Volume Vent Mode Tidal Volume POC PEEP POC Pressure Suppt Blood Gas Notified Whom Blood Gas Notified Time Sodium 143 Potassium 5.4 H Chloride 115 H Carbon Dioxide 19.0 L Anion Gap 9 BUN 17 Creatinine 1.37 H Estim Creat Clear Calc 53.28 Est GFR (MDRD) Af Amer 66 Est GFR (MDRD) Non-Af 55 L BUN/Creatinine Ratio 12.4 Glucose 165 H Calcium 6.5 L* Total Creatine Kinase 2991 H Troponin I Triglycerides 26 MRSA (PCR) Blood Type Antibody Screen Crossmatch 05/30/18 05/30/18 05/30/18 01:32 05:29 05:45 WBC RBC Hgb Hct MCV MCH MCHC RDW RDW Differential Plt Count MPV Immature Gran % (Auto) Neut % (Auto) Lymph % (Auto) [place] % (Auto) Eos % (Auto) Baso % (Auto) Absolute Neuts (auto) Absolute Lymphs (auto) Total Counted PT INR APTT Specimen Type [place] Sample Site L Radial L Radial pH 7.30 L 7.32 L Bicarbonate Actual 19.5 L 17.1 L POC Total CO2 21 18 Base Excess -7 L -9 L O2 Saturation 100 H 99 O2 % 100 35 ABG pCO2 39.6 32.8 L ABG pO2 227 H 149 H Jeronimo Test NA NA Respiration Rate 14 14 O2 Delivery Device Vent Vent Minute Volume 8.00 10.00 Vent Mode A-C A-C Tidal Volume 500 550 POC PEEP 5 5 POC Pressure Suppt Blood Gas Notified Whom ICU MD ICU MD Blood Gas Notified Time 125 524 Sodium Potassium Chloride Carbon Dioxide Anion Gap BUN Creatinine Estim Creat Clear Calc Est GFR (MDRD) Af Amer Est GFR (MDRD) Non-Af BUN/Creatinine Ratio Glucose Calcium Total Creatine Kinase Troponin I Triglycerides MRSA (PCR) Pending Blood Type Antibody Screen Crossmatch 05/30/18 05/30/18 05/30/18 06:30 06:30 06:30 WBC 13.5 H RBC 3.67 L Hgb 11.4 L Hct 33.9 L MCV 92.4 MCH 31.1 MCHC 33.6 RDW 14.5 RDW Differential 48.4 H Plt Count 107 L MPV 10.1 Immature Gran % (Auto) Neut % (Auto) Lymph % (Auto) [place] % (Auto) Eos % (Auto) Baso % (Auto) Absolute Neuts (auto) Absolute Lymphs (auto) Total Counted PT 16.1 H INR 1.3 APTT 24.3 Specimen Type Sample Site pH Bicarbonate Actual POC Total CO2 Base Excess O2 Saturation O2 % ABG pCO2 ABG pO2 Jeronimo Test Respiration Rate O2 Delivery Device Minute Volume Vent Mode Tidal Volume POC PEEP POC Pressure Suppt Blood Gas Notified Whom Blood Gas Notified Time Sodium 143 Potassium 5.0 Chloride 112 H Carbon Dioxide 18.0 L Anion Gap 13 BUN 20 H Creatinine 1.67 H Estim Creat Clear Calc 43.71 Est GFR (MDRD) Af Amer 53 L Est GFR (MDRD) Non-Af 44 L BUN/Creatinine Ratio 12.0 Glucose 145 H Calcium 7.2 L Total Creatine Kinase Troponin I Triglycerides MRSA (PCR) Blood Type Antibody Screen Crossmatch 05/30/18 05/30/18 07:25 09:00 WBC RBC Hgb Hct MCV MCH MCHC RDW RDW Differential Plt Count MPV Immature Gran % (Auto) Neut % (Auto) Lymph % (Auto) [place] % (Auto) Eos % (Auto) Baso % (Auto) Absolute Neuts (auto) Absolute Lymphs (auto) Total Counted PT INR APTT Specimen Type RANDOLPH Sample Site OTHER pH 7.36 Bicarbonate Actual 19.0 L POC Total CO2 20 Base Excess -6 L O2 Saturation 99 O2 % 30 ABG pCO2 33.4 L ABG pO2 135 H Jeronimo Test Respiration Rate O2 Delivery Device Vent Minute Volume Vent Mode CPAP PS Tidal Volume POC PEEP 5 POC Pressure Suppt 5 Blood Gas Notified Whom ICU Blood Gas Notified Time 724 Sodium Potassium Chloride Carbon Dioxide Anion Gap BUN Creatinine Estim Creat Clear Calc Est GFR (MDRD) Af Amer Est GFR (MDRD) Non-Af BUN/Creatinine Ratio Glucose Calcium Total Creatine Kinase Troponin I 0.594 H Triglycerides MRSA (PCR) Blood Type Antibody Screen Crossmatch Clinical Impression(s) from Imaging Studies Chest X-Ray 05/23/18 11:21 IMPRESSION: Chronic interstitial changes, no superimposed acute pulmonary process Electronically Signed: Zaheer Villanueva MD at 12:21 EDT , Service support , Chest X-Ray 05/30/18 01:27 IMPRESSION: Endotracheal tube tip is 5.3 cm from yeimi, in appropriate position. Electronically Signed: Cleveland Wing MD at 2:05 EDT Tel , Service support , Chest X-Ray 05/30/18 04:09 IMPRESSION: Interval placement of enteric tube, tip in the fundus of the stomach. Interval placement of left central catheter, tip in region of innominate vein. No pneumothorax. Electronically Signed: Cleveland Wing MD at 5:23 EDT Tel , Service support , KUB X-Ray 05/30/18 04:09 IMPRESSION: Normal bowel gas pattern. Postoperative changes as described. Electronically Signed: Cleveland Wing MD at 5:26 EDT Tel , Service support , Assessment/Plan Active and Suspected Problems Renal malignant tumor (Acute) Glaucoma (Acute) Acute blood loss as cause of postoperative anemia (Acute) RECOMMENDATIONS: 1. Increase activity as tolerated 2. Discontinue fentanyl and propofol drips 3. Fentanyl every 2 as needed for pain 4. Bronchodilators only if needed 5. Recheck blood counts this afternoon 6. Serial troponins IMPRESSIONS: 1. Acute respiratory failure Patient was able to be successfully liberated from the ventilator earlier today. Patient is doing well on room air at this time. Patient does have a history of smoking, but is not diagnosed with COPD. Will give bronchodilators if necessary. ABG at the end of spontaneous breathing trial showed appropriate compensation for metabolic acidosis. Encourage incentive spirometer. Increase activity as tolerated. 2. Hemorrhagic shock status post partial nephrectomy Patient has received multiple blood products at this time. Patient does not appear to be in DIC. Blood pressure is much improved at this time and pressors have been discontinued. Patient has received significant amount of fluid, but urine output continues to be somewhat marginal. Total CK is elevated. 3. Acute kidney injury Patient with an elevated creatinine following surgery. Patient is not making significant amount of urine at this time. Patient currently is on room air, so will give aggressive fluid challenges. Patient has no indication for renal replacement therapy at this time. 4. Chest pain Patient reporting shoulder/chest pain shortly after extubation. Patient has had no change in hemodynamics or oxygenation to suggest a pneumothorax. Initial troponin is somewhat elevated. Unclear if this is residual from overnight events versus a new ongoing ischemia. Will hold off on anticoagulation at this time. Continue to monitor troponins. This may be a type II non-ST elevation DE that occurred during the acute hemorrhage in the partial nephrectomy. 5. Glaucoma Complicates care, management, recovery and prognosis. TIME: 40 minutes critical care time spent addressing patient's acute respiratory failure, hemorrhagic shock, acute kidney injury, review of all data and collaboration with care team (7 AM to 9 AM) Code Visit 9xxxx: [id number] Critical care first hour
[2018-05-30 10:18] LABS: M R Staph aureus DNA By PCR Negative (Negative); Probe Check PASS; Specimen Processing Control PASS
[2018-05-30] MEDS: Timolol 0.5% 5ML OPTH.BTL 1 DRP EACH EYE ×3 (10:26→21:05)
--- NOTE | 2018-05-30 12:15 | CASEMGMT ---
SEE RN SHAMAR ASSESS LINK: D/C PLAN: Probable Home--awaiting PT/OT eval. Intro role to RN SHAMAR. Pt resting in bed, talking with son and DIL @ bedside. Pt states was independent with all ADL's prior to discharge and used no DME. Pt lives in an apt and has 20 steps to enter home and was able to navigate those well prior to hospitalization. Pt states wishes to return home on discharge. Awaiting PT/OT eval. Pt reports he still drives and does have transportation home upon discharge. Denies having any further questions. CM to follow for any discharge planning needs that may arise. Cristopher ADAMEN ELMER IBANEZ
--- NOTE | 2018-05-30 12:59 | NURSING ---
Pt's daughter in law taking all of pt's personal belongings home w/pt's permission.
[2018-05-30 16:22] LABS: Hematocrit 27.1 % (40-54); Hemoglobin 9.2 g/dl (13.0-16.5)
[2018-05-30 16:56] LABS: Anion Gap 9 (5-15); BUN 25 mg/dL (7-18); BUN/Creat Ratio 13.5 RATIO (10-20); Calcium,Total 7.2 mg/dL (8.5-10.1); Chloride 111 mmol/L (98-107); Creatinine, Serum 1.85 mg/dL (0.70-1.30); EST Glomerular Filtration Rate 39 mL/min (>60); Est Glom Filt Rate - Afr Amer 47 mL/min (>60); Estimated Creatinine Clearance 39.46 ml/min; Glucose 117 mg/dL (74-106); Potassium 4.3 mmol/L (3.5-5.1); Sodium Level 142 mmol/L (136-145)
--- NOTE | 2018-05-30 17:23 | NURSING ---
Called lab for troponin result since it has been over an hour. Results being put in computer.
[2018-05-30] MEDS: CHLORHEXIDINE GLUC 2% CLOTH 1 EACH TOWELETTE TOPICAL (19:06)
[2018-05-30 22:13] LABS: Hematocrit 24.6 % (40-54); Hemoglobin 8.4 g/dl (13.0-16.5)
[2018-05-31] VITALS (30 sets, daily range): BP systolic 90–122; BP diastolic 40–74; PULSE 59–85; RESP 15–27; TEMP 36.8–37.3; O2SAT 93–99
[2018-05-31] MEDS: fentaNYL 100 MCG/2 ML Ampul 25 MCG IV ×2 (01:24→06:09)
[2018-05-31] MEDS: Lactated Ringers 1,000 ML 125 ML IV ×2 (02:13→10:34)
[2018-05-31 04:27] LABS: Hematocrit 22.4 % (40-54); Hemoglobin 7.7 g/dl (13.0-16.5); Mean Corp Hgb Conc 34.4 g/gl (32-36); Mean Corpuscular Hgb 32.2 pg (27.0-32.0); Mean Corpuscular Volume 93.7 fL (80-94); Mean Platelet Vol. 9.3 fl (6.2-12.0); Platelet Count 81 K/mm3 (150-450); RBC Distribution Width CV 14.5 % (11.6-14.6); RBC Distribution Width SD 47.2 fl (35.1-43.9); Red Blood Count 2.39 M/mm3 (4.6-6.2); Scan Indicated on CBC? Y/N NO; White Blood Count 8.8 K/mm3 (4.4-11.0)
[2018-05-31 04:39] LABS: Anion Gap 6 (5-15); BUN 25 mg/dL (7-18); BUN/Creat Ratio 15.3 RATIO (10-20); Calcium,Total 7.3 mg/dL (8.5-10.1); Chloride 111 mmol/L (98-107); Creatinine, Serum 1.63 mg/dL (0.70-1.30); EST Glomerular Filtration Rate 45 mL/min (>60); Est Glom Filt Rate - Afr Amer 54 mL/min (>60); Estimated Creatinine Clearance 44.79 ml/min; Glucose 106 mg/dL (74-106); Potassium 3.8 mmol/L (3.5-5.1); Sodium Level 143 mmol/L (136-145)
--- NOTE | 2018-05-31 06:22 | PN_ITS ---
Subjective: Patient did well overnight. No acute issues were reported. Urine output has improved. Patient denies any current chest pain or shortness of breath. Patient has been tolerating room air and was walking with staff overnight. Patient feels subjectively improved compared to previous. Patient does report passing flatus General: Alert, Oriented x3, Cooperative, No apparent distress, - - Speaking in full sentences. HEENT: Atraumatic, PERRLA, EOMI, Normocephalic, - - No scleral icterus or injection noted. Oral: Moist Mucosa, No Gingival or Mucosal Lesions/ Ulcerations Neck: Supple, No JVD, No Nodes, Trachea Midline Lungs: Clear to auscultation, Normal air movement, No rhonchi, No wheeze, No rales, - - Symmetric expansion. No dullness to percussion. Cardiovascular: Regular rate, Regular Rhythm, Normal S1, Normal S2, No murmurs, No rub noted, No Gallop Abdomen: Bowel Sounds Present, Soft, Distended - Slightly, Tender - No rebound or guarding noted Extremities: No clubbing, No cyanosis, No edema, Capillary Refill Less than 3 Seconds Skin: No rashes, No breakdown Musculoskeletal: No Tenderness to Palpation of Joints or Extremities Lymphatic: No Cervical, Supraclavicular, or Inguinal Adenopathy Neurological: Cranial nerves II-XII grossly intact, Neuro grossly intact, Motor Exam 5/5 strength throughout Psych/Mental Status: Alert and oriented to time, place, person, mood and affect Vital Signs Temp Pulse Resp BP Pulse Ox 37.3 C 85 27 H 106/69 97 05/31/18 06:00 05/31/18 06:00 05/31/18 06:00 05/31/18 06:00 05/31/18 06:00 Oxygen Flow Rate (L/min) 2 Oxygen Delivery Method Room Air Weight: 89.6 kg Body Mass Index (BMI) 26.8 Intake and Output for Last 24 Hours 05/29/18 05/30/18 05/31/18 23:59 23:59 23:59 Intake Total 4925 / 4925 4869.8 / 4869.8 1307 / 1307 Output Total 250 / 250 755 / 755 675 / 675 Balance 4675 / 4675 4114.8 / 4114.8 632 / 632 Labs (Last 48 Hours) 05/29/18 05/29/18 05/29/18 12:20 12:20 12:20 WBC RBC Hgb Hct MCV MCH MCHC RDW RDW Differential Plt Count MPV Immature Gran % (Auto) Neut % (Auto) Lymph % (Auto) [place] % (Auto) Eos % (Auto) Baso % (Auto) Absolute Neuts (auto) Absolute Lymphs (auto) Total Counted PT INR APTT Specimen Type Sample Site pH Bicarbonate Actual POC Total CO2 Base Excess O2 Saturation O2 % ABG pCO2 ABG pO2 Jer[place]imo Test Respiration Rate O2 Delivery Device Minute Volume Vent Mode Tidal Volume POC PEEP POC Pressure Suppt Blood Gas Notified Whom Blood Gas Notified Time Sodium Potassium Chloride Carbon Dioxide Anion Gap BUN Creatinine Estim Creat Clear Calc Est GFR (MDRD) Af Amer Est GFR (MDRD) Non-Af BUN/Creatinine Ratio Glucose Calcium Total Creatine Kinase Troponin I Triglycerides MRSA (PCR) Blood Type A POSITIVE Antibody Screen NEGATIVE Crossmatch See Detail See Detail 05/29/18 05/29/18 05/29/18 12:20 19:37 19:37 WBC 12.3 H RBC 4.15 L Hgb 13.5 Hct 40.2 MCV 96.9 H MCH 32.5 H MCHC 33.6 RDW 14.1 RDW Differential 48.2 H Plt Count 207 MPV 9.4 Immature Gran % (Auto) Neut % (Auto) Lymph % (Auto) [place] % (Auto) Eos % (Auto) Baso % (Auto) Absolute Neuts (auto) Absolute Lymphs (auto) Total Counted PT INR APTT Specimen Type Sample Site pH Bicarbonate Actual POC Total CO2 Base Excess O2 Saturation O2 % ABG pCO2 ABG pO2 Jeron[place] Test Respiration Rate O2 Delivery Device Minute Volume Vent Mode Tidal Volume POC PEEP POC Pressure Suppt Blood Gas Notified Whom Blood Gas Notified Time Sodium 142 Potassium 4.5 Chloride 109 H Carbon Dioxide 23.0 Anion Gap 10 BUN 14 Creatinine 1.11 Estim Creat Clear Calc 65.77 Est GFR (MDRD) Af Amer 85 Est GFR (MDRD) Non-Af 70 BUN/Creatinine Ratio 12.6 Glucose 159 H Calcium 8.5 Total Creatine Kinase Troponin I Triglycerides MRSA (PCR) Blood Type Antibody Screen Crossmatch See Detail 05/29/18 05/30/18 05/30/18 22:31 01:30 01:30 WBC 12.4 H RBC 2.75 L Hgb 9.8 L 8.8 L Hct 30.3 L 26.2 L MCV 95.3 H MCH 32.0 MCHC 33.6 RDW 13.8 RDW Differential 45.4 H Plt Count 108 L MPV 9.3 Immature Gran % (Auto) 0.800 Neut % (Auto) 84.2 H Lymph % (Auto) 5.4 L [place] % (Auto) 9.3 Eos % (Auto) 0.2 Baso % (Auto) 0.1 Absolute Neuts (auto) 10.4 H Absolute Lymphs (auto) 0.67 L Total Counted Not Reportable PT INR APTT Specimen Type Sample Site pH Bicarbonate Actual POC Total CO2 Base Excess O2 Saturation O2 % ABG pCO2 ABG pO2 Jeronimo Test Respiration Rate O2 Delivery Device Minute Volume Vent Mode Tidal Volume POC PEEP POC Pressure Suppt Blood Gas Notified Whom Blood Gas Notified Time Sodium 143 Potassium 5.4 H Chloride 115 H Carbon Dioxide 19.0 L Anion Gap 9 BUN 17 Creatinine 1.37 H Estim Creat Clear Calc 53.28 Est GFR (MDRD) Af Amer 66 Est GFR (MDRD) Non-Af 55 L BUN/Creatinine Ratio 12.4 Glucose 165 H Calcium 6.5 L* Total Creatine Kinase Troponin I Triglycerides MRSA (PCR) Blood Type Antibody Screen Crossmatch 05/30/18 05/30/18 05/30/18 01:30 01:32 05:29 WBC RBC Hgb Hct MCV MCH MCHC RDW RDW Differential Plt Count MPV Immature Gran % (Auto) Neut % (Auto) Lymph % (Auto) [place] % (Auto) Eos % (Auto) Baso % (Auto) Absolute Neuts (auto) Absolute Lymphs (auto) Total Counted PT INR APTT Specimen Type RANDOLPH DICKSON Sample Site L Radial L Radial pH 7.30 L 7.32 L Bicarbonate Actual 19.5 L 17.1 L POC Total CO2 21 18 Base Excess -7 L -9 L O2 Saturation 100 H 99 O2 % 100 35 ABG pCO2 39.6 32.8 L ABG pO2 227 H 149 H Jeronimo Test NA NA Respiration Rate 14 14 O2 Delivery Device Vent Vent Minute Volume 8.00 10.00 Vent Mode A-C A-C Tidal Volume 500 550 POC PEEP 5 5 POC Pressure Suppt Blood Gas Notified Whom ICU ICU MD Blood Gas Notified Time 125 524 Sodium Potassium Chloride Carbon Dioxide Anion Gap BUN Creatinine Estim Creat Clear Calc Est GFR (MDRD) Af Amer Est GFR (MDRD) Non-Af BUN/Creatinine Ratio Glucose Calcium Total Creatine Kinase 2991 H Troponin I Triglycerides 26 MRSA (PCR) Blood Type Antibody Screen Crossmatch 05/30/18 05/30/18 05/30/18 05:45 06:30 06:30 WBC 13.5 H RBC 3.67 L Hgb 11.4 L Hct 33.9 L MCV 92.4 MCH 31.1 MCHC 33.6 RDW 14.5 RDW Differential 48.4 H Plt Count 107 L MPV 10.1 Immature Gran % (Auto) Neut % (Auto) Lymph % (Auto) [place] % (Auto) Eos % (Auto) Baso % (Auto) Absolute Neuts (auto) Absolute Lymphs (auto) Total Counted PT INR APTT Specimen Type Sample Site pH Bicarbonate Actual POC Total CO2 Base Excess O2 Saturation O2 % ABG pCO2 ABG pO2 Jeronimo Test Respiration Rate O2 Delivery Device Minute Volume Vent Mode Tidal Volume POC PEEP POC Pressure Suppt Blood Gas Notified Whom Blood Gas Notified Time Sodium 143 Potassium 5.0 Chloride 112 H Carbon Dioxide 18.0 L Anion Gap 13 BUN 20 H Creatinine 1.67 H Estim Creat Clear Calc 43.71 Est GFR (MDRD) Af Amer 53 L Est GFR (MDRD) Non-Af 44 L BUN/Creatinine Ratio 12.0 Glucose 145 H Calcium 7.2 L Total Creatine Kinase Troponin I Triglycerides MRSA (PCR) Negative Blood Type Antibody Screen Crossmatch 05/30/18 05/30/18 05/30/18 06:30 07:25 09:00 WBC RBC Hgb Hct MCV MCH MCHC RDW RDW Differential Plt Count MPV Immature Gran % (Auto) Neut % (Auto) Lymph % (Auto) [place] % (Auto) Eos % (Auto) Baso % (Auto) Absolute Neuts (auto) Absolute Lymphs (auto) Total Counted PT 16.1 H INR 1.3 APTT 24.3 Specimen Type RANDOLPH Sample Site OTHER pH 7.36 Bicarbonate Actual 19.0 L POC Total CO2 20 Base Excess -6 L O2 Saturation 99 O2 % 30 ABG pCO2 33.4 L ABG pO2 135 H Jeronimo Test Respiration Rate O2 Delivery Device Vent Minute Volume Vent Mode CPAP PS Tidal Volume POC PEEP 5 POC Pressure Suppt 5 Blood Gas Notified Whom ICU MD Blood Gas Notified Time 724 Sodium Potassium Chloride Carbon Dioxide Anion Gap BUN Creatinine Estim Creat Clear Calc Est GFR (MDRD) Af Amer Est GFR (MDRD) Non-Af BUN/Creatinine Ratio Glucose Calcium Total Creatine Kinase Troponin I 0.594 H Triglycerides MRSA (PCR) Blood Type Antibody Screen Crossmatch 05/30/18 05/30/18 05/30/18 12:30 16:10 16:10 WBC RBC Hgb 9.2 L Hct 27.1 L MCV MCH MCHC RDW RDW Differential Plt Count MPV Immature Gran % (Auto) Neut % (Auto) Lymph % (Auto) [place] % (Auto) Eos % (Auto) Baso % (Auto) Absolute Neuts (auto) Absolute Lymphs (auto) Total Counted PT INR APTT Specimen Type Sample Site pH Bicarbonate Actual POC Total CO2 Base Excess O2 Saturation O2 % ABG pCO2 ABG pO2 Jeronimo Test Respiration Rate O2 Delivery Device Minute Volume Vent Mode Tidal Volume POC PEEP POC Pressure Suppt Blood Gas Notified Whom Blood Gas Notified Time Sodium Potassium Chloride Carbon Dioxide Anion Gap BUN Creatinine Estim Creat Clear Calc Est GFR (MDRD) Af Amer Est GFR (MDRD) Non-Af BUN/Creatinine Ratio Glucose Calcium Total Creatine Kinase Troponin I 0.921 H* 0.978 H* Triglycerides MRSA (PCR) Blood Type Antibody Screen Crossmatch 05/30/18 05/30/18 05/30/18 16:10 19:20 21:55 WBC RBC Hgb 8.4 L Hct 24.6 L MCV MCH MCHC RDW RDW Differential Plt Count MPV Immature Gran % (Auto) Neut % (Auto) Lymph % (Auto) [place] % (Auto) Eos % (Auto) Baso % (Auto) Absolute Neuts (auto) Absolute Lymphs (auto) Total Counted PT INR APTT Specimen Type Sample Site pH Bicarbonate Actual POC Total CO2 Base Excess O2 Saturation O2 % ABG pCO2 ABG pO2 Jeronimo Test Respiration Rate O2 Delivery Device Minute Volume Vent Mode Tidal Volume POC PEEP POC Pressure Suppt Blood Gas Notified Whom Blood Gas Notified Time Sodium 142 Potassium 4.3 Chloride 111 H Carbon Dioxide 22.0 Anion Gap 9 BUN 25 H Creatinine 1.85 H Estim Creat Clear Calc 39.46 Est GFR (MDRD) Af Amer 47 L Est GFR (MDRD) Non-Af 39 L BUN/Creatinine Ratio 13.5 Glucose 117 H Calcium 7.2 L Total Creatine Kinase Troponin I 0.991 H* Triglycerides MRSA (PCR) Blood Type Antibody Screen Crossmatch 05/31/18 05/31/18 04:15 04:15 WBC 8.8 RBC 2.39 L Hgb 7.7 L Hct 22.4 L MCV 93.7 MCH 32.2 H MCHC 34.4 RDW 14.5 RDW Differential 47.2 H Plt Count 81 L MPV 9.3 Immature Gran % (Auto) Neut % (Auto) Lymph % (Auto) [place] % (Auto) Eos % (Auto) Baso % (Auto) Absolute Neuts (auto) Absolute Lymphs (auto) Total Counted PT INR APTT Specimen Type Sample Site pH Bicarbonate Actual POC Total CO2 Base Excess O2 Saturation O2 % ABG pCO2 ABG pO2 Jeronimo Test Respiration Rate O2 Delivery Device Minute Volume Vent Mode Tidal Volume POC PEEP POC Pressure Suppt Blood Gas Notified Whom Blood Gas Notified Time Sodium 143 Potassium 3.8 Chloride 111 H Carbon Dioxide 26.0 Anion Gap 6 BUN 25 H Creatinine 1.63 H Estim Creat Clear Calc 44.79 Est GFR (MDRD) Af Amer 54 L Est GFR (MDRD) Non-Af 45 L BUN/Creatinine Ratio 15.3 Glucose 106 Calcium 7.3 L Total Creatine Kinase Troponin I Triglycerides MRSA (PCR) Blood Type Antibody Screen Crossmatch Medical Necessity - Tobacco Use Smoking Status: Former smoker Assessment/Plan All Active Problems Renal malignant tumor (Acute) Glaucoma (Acute) Acute blood loss as cause of postoperative anemia (Acute) RECOMMENDATIONS: 1. Increase activity as tolerated 2. Consider transition to p.o. pain medications 3. Recheck CBC this afternoon 4. Bronchodilators only if needed 5. Obtain echocardiogram 6. Likely okay to leave the intensive care unit IMPRESSIONS: 1. Acute respiratory failure Patient has been doing well on room air since extubation. Patient does have a history of smoking, but no wheezing has been reported. Continue to suggest compliance with incentive spirometer. 2. Hemorrhagic shock status post partial nephrectomy Patient has received multiple blood products at this time. Patient does not appear to be in DIC. Blood pressure is improving at this time and pressors have been discontinued. Patient has received significant amount of fluid, but urine output continues to be somewhat marginal. Total CK is elevated. Patient did have a decrease in all blood lines this morning. Unclear if this is secondary to dilution this patient has had significant fluids over the last 24 hours. Will give 1 unit of packed red blood cells given his potential for bleeding. No indication for platelet transfusion. 3. Acute kidney injury Patient with an elevated creatinine following surgery. Urine output appears to be improving. Patient currently is on room air, so will give aggressive fluid challenges. Patient has no indication for renal replacement therapy at this time. 4. Non-ST elevation SD Patient with significant increase in troponin after onset of chest pain yesterday. EKG is unchanged. Patient does have thrombocytopenia and recent hemorrhage, so will not give any aspirin. Blood pressures currently marginal, so beta blockers and CATRACHO inhibitors will be held. Will obtain an echocardiogram for quantification and clarification of heart function. 5. Glaucoma Complicates care, management, recovery and prognosis. Code Visit Inpatient E&M: [id number] [facility] Hosp L3
--- NOTE | 2018-05-31 06:40 | PCM.PROGNOTE ---
Patient Problems: Active and Suspected Problems Renal malignant tumor (Acute) Glaucoma (Acute) Acute blood loss as cause of postoperative anemia (Acute) Subjective: Relatively stable overnight his hemoglobin came back slightly low this morning he can get 1 more unit of blood I agree with this mostly dilutional and fluid stress at this point but we want to keep his hemoglobin up is making good urine output his blood pressure is stable he clinically looks stable he is calm he is alert and awake talking. Abdomen soft and benign he is passed a little bit of gas no nausea or vomiting. Plan to advance him to a light clear liquid diet. We can slowly give 1 more unit of blood today follow-up H&H later today KVO IV fluids. I will let the ICU intensive to decide whether to keep him 1 more night in the ICU or if he can go to the floor I think he possibly go to the floor later today if he looks stable. - Physical Exam General: Alert, Oriented x3, Cooperative HEENT: Atraumatic, PERRLA, EOMI, Normocephalic Neck: Supple, No JVD, Negative Carotid Bruits Lungs: Clear to auscultation, Normal air movement Cardiovascular: Regular rate, No murmurs Abdomen: Bowel Sounds Present, Soft, Non Tender Extremities: No edema, Capillary Refill Less than 3 Seconds Skin: No rashes, No breakdown Musculoskeletal: No Tenderness to Palpation of Joints or Extremities Neurological: Cranial nerves II-XII grossly intact Psych/Mental Status: Normal Affect, Appropriate Vital Signs Temp Pulse Resp BP Pulse Ox 99.1 F 85 27 H 106/69 97 05/31/18 06:00 05/31/18 06:00 05/31/18 06:00 05/31/18 06:00 05/31/18 06:00 Oxygen Flow Rate (L/min) 2 Oxygen Delivery Method Room Air Weight: 89.6 kg Body Mass Index (BMI) 26.8 Intake and Output for Last 24 Hours 05/29/18 05/30/18 05/31/18 23:59 23:59 23:59 Intake Total 4925 / 4925 4869.8 / 4869.8 1307 / 1307 Output Total 250 / 250 755 / 755 675 / 675 Balance 4675 / 4675 4114.8 / 4114.8 632 / 632 Laboratory Tests Past 24 Hrs 05/29/18 05/30/18 05/30/18 12:20 05:45 06:30 WBC 13.5 H RBC 3.67 L Hgb 11.4 L Hct 33.9 L MCV 92.4 MCH 31.1 MCHC 33.6 RDW 14.5 RDW Differential 48.4 H Plt Count 107 L MPV 10.1 PT INR APTT Specimen Type Sample Site pH Bicarbonate Actual POC Total CO2 Base Excess O2 Saturation O2 % ABG pCO2 ABG pO2 O2 Delivery Device Vent Mode POC PEEP POC Pressure Suppt Blood Gas Notified Whom Blood Gas Notified Time Sodium Potassium Chloride Carbon Dioxide Anion Gap BUN Creatinine Estim Creat Clear Calc Est GFR (MDRD) Af Amer Est GFR (MDRD) Non-Af BUN/Creatinine Ratio Glucose Calcium Troponin I MRSA (PCR) Negative Crossmatch See Detail 05/30/18 05/30/18 05/30/18 06:30 06:30 07:25 WBC RBC Hgb Hct MCV MCH MCHC RDW RDW Differential Plt Count MPV PT 16.1 H INR 1.3 APTT 24.3 Specimen Type RANDOLPH Sample Site OTHER pH 7.36 Bicarbonate Actual 19.0 L POC Total CO2 20 Base Excess -6 L O2 Saturation 99 O2 % 30 ABG pCO2 33.4 L ABG pO2 135 H O2 Delivery Device Vent Vent Mode CPAP PS POC PEEP 5 POC Pressure Suppt 5 Blood Gas Notified Whom ICU MD Blood Gas Notified Time 724 Sodium 143 Potassium 5.0 Chloride 112 H Carbon Dioxide 18.0 L Anion Gap 13 BUN 20 H Creatinine 1.67 H Estim Creat Clear Calc 43.71 Est GFR (MDRD) Af Amer 53 L Est GFR (MDRD) Non-Af 44 L BUN/Creatinine Ratio 12.0 Glucose 145 H Calcium 7.2 L Troponin I MRSA (PCR) Crossmatch 05/30/18 05/30/18 05/30/18 09:00 12:30 16:10 WBC RBC Hgb Hct MCV MCH MCHC RDW RDW Differential Plt Count MPV PT INR APTT Specimen Type Sample Site pH Bicarbonate Actual POC Total CO2 Base Excess O2 Saturation O2 % ABG pCO2 ABG pO2 O2 Delivery Device Vent Mode POC PEEP POC Pressure Suppt Blood Gas Notified Whom Blood Gas Notified Time Sodium Potassium Chloride Carbon Dioxide Anion Gap BUN Creatinine Estim Creat Clear Calc Est GFR (MDRD) Af Amer Est GFR (MDRD) Non-Af BUN/Creatinine Ratio Glucose Calcium Troponin I 0.594 H 0.921 H* 0.978 H* MRSA (PCR) Crossmatch 05/30/18 05/30/18 05/30/18 16:10 16:10 19:20 WBC RBC Hgb 9.2 L Hct 27.1 L MCV MCH MCHC RDW RDW Differential Plt Count MPV PT INR APTT Specimen Type Sample Site pH Bicarbonate Actual POC Total CO2 Base Excess O2 Saturation O2 % ABG pCO2 ABG pO2 O2 Delivery Device Vent Mode POC PEEP POC Pressure Suppt Blood Gas Notified Whom Blood Gas Notified Time Sodium 142 Potassium 4.3 Chloride 111 H Carbon Dioxide 22.0 Anion Gap 9 BUN 25 H Creatinine 1.85 H Estim Creat Clear Calc 39.46 Est GFR (MDRD) Af Amer 47 L Est GFR (MDRD) Non-Af 39 L BUN/Creatinine Ratio 13.5 Glucose 117 H Calcium 7.2 L Troponin I 0.991 H* MRSA (PCR) Crossmatch 05/30/18 05/31/18 05/31/18 21:55 04:15 04:15 WBC 8.8 RBC 2.39 L Hgb 8.4 L 7.7 L Hct 24.6 L 22.4 L MCV 93.7 MCH 32.2 H MCHC 34.4 RDW 14.5 RDW Differential 47.2 H Plt Count 81 L MPV 9.3 PT INR APTT Specimen Type Sample Site pH Bicarbonate Actual POC Total CO2 Base Excess O2 Saturation O2 % ABG pCO2 ABG pO2 O2 Delivery Device Vent Mode POC PEEP POC Pressure Suppt Blood Gas Notified Whom Blood Gas Notified Time Sodium 143 Potassium 3.8 Chloride 111 H Carbon Dioxide 26.0 Anion Gap 6 BUN 25 H Creatinine 1.63 H Estim Creat Clear Calc 44.79 Est GFR (MDRD) Af Amer 54 L Est GFR (MDRD) Non-Af 45 L BUN/Creatinine Ratio 15.3 Glucose 106 Calcium 7.3 L Troponin I MRSA (PCR) Crossmatch Medical Necessity - Tobacco Use Smoking Status: Former smoker Assessment/Plan All Active Problems Renal malignant tumor (Acute) Glaucoma (Acute) Acute blood loss as cause of postoperative anemia (Acute) Postop day #2 status post partial nephrectomy with reexploration and completion nephrectomy for postoperative bleeding from nephrectomy site. At this point slight decrease in H&H mostly dilutional he is clinically stable he is not requiring pressors the blood pressure is okay I agree with giving him another unit of blood following his creatinine H&H. Urine output is good. Advance to a clear liquid diet I would like him out of bed into a chair. Possible transfer to floor later today if appears to be stable.
--- NOTE | 2018-05-31 09:25 | CASEMGMT ---
RN CM Note: intro role of CM to patient and his daughter. Discussed discharge needs. Pt states he is independent and daughter is willing to assist with transportation until pt able to drive again. No further dc needs noted. Rasta PAYNE BSN ACM
[2018-05-31] MEDS: oxyCODONE 5 MG Tablet PO ×3 (10:29→20:06)
[2018-05-31] MEDS: Ondansetron 4 MG/2 ML Vial IV (10:30)
[2018-05-31] MEDS: Famotidine 20mg IV Push Syringe Q24 300 MG IV (10:30)
[2018-05-31] MEDS: Latanoprost 0.005% 1 Bottle 1 DRP EACH EYE (10:31)
[2018-05-31] MEDS: BRIMONIDINE 0.2% 5ML BOTTLE 1 DRP EACH EYE ×2 (10:31→21:12)
[2018-05-31] MEDS: Timolol 0.5% 5ML OPTH.BTL 1 DRP EACH EYE ×2 (10:32→21:12)
[2018-05-31] MEDS: Senna Tablet 2 TABLET PO ×2 (10:33→21:12)
[2018-05-31] MEDS: CHLORHEXIDINE GLUC 2% CLOTH 1 EACH TOWELETTE TOPICAL (15:46)
[2018-05-31 17:25] LABS: Hematocrit 26.1 % (40-54); Hemoglobin 8.7 g/dl (13.0-16.5)
[2018-06-01] VITALS (19 sets, daily range): BP systolic 89–128; BP diastolic 56–74; PULSE 59–79; RESP 10–24; TEMP 36.7–37.1; O2SAT 93–99
[2018-06-01] MEDS: oxyCODONE 5 MG Tablet PO ×4 (00:05→19:36)
[2018-06-01 04:43] LABS: Absolute Lymphocyte Count 2.37 X10^3/ul (0.83-4.51); Absolute Neutrophil Count 5.3 X10^3/uL (2.0-7.7); Eosinophils% 1.2 % (0-5); Hematocrit 24.1 % (40-54); Lymphocyte # 2.37 X10^3/ul (4.0); Lymphocyte % 27.5 % (19-41); Mean Corp Hgb Conc 33.2 g/gl (32-36); Mean Corpuscular Hgb 30.9 pg (27.0-32.0); Mean Corpuscular Volume 93.1 fL (80-94); Mean Platelet Vol. 9.6 fl (6.2-12.0); Monocyte# 0.88 X10^3/uL; Monocyte% 10.2 % (0-10); Neutrophil # 5.25 X10^3/uL (2.7-7.7); Platelet Count 70 K/mm3 (150-450); RBC Distribution Width CV 14.5 % (11.6-14.6); RBC Distribution Width SD 48.4 fl (35.1-43.9); Red Blood Count 2.59 M/mm3 (4.6-6.2); White Blood Count 8.6 K/mm3 (4.4-11.0)
[2018-06-01 04:45] LABS: POSITIVE COUNT NO; POSITIVE DIFFERENTIAL NO; POSITIVE MORPHOLOGY NO
[2018-06-01 04:56] LABS: Anion Gap 10 (5-15); BUN 16 mg/dL (7-18); BUN/Creat Ratio 11.9 RATIO (10-20); Calcium,Total 7.6 mg/dL (8.5-10.1); Chloride 110 mmol/L (98-107); Creatinine, Serum 1.34 mg/dL (0.70-1.30); EST Glomerular Filtration Rate 56 mL/min (>60); Est Glom Filt Rate - Afr Amer 68 mL/min (>60); Estimated Creatinine Clearance 54.48 ml/min; Glucose 93 mg/dL (74-106); Potassium 3.8 mmol/L (3.5-5.1); Sodium Level 145 mmol/L (136-145)
--- NOTE | 2018-06-01 06:43 | PCM.PN.INT ---
Subjective: Patient did well overnight. No acute issues were reported. Patient reports pain is well controlled using oxycodone. No fever is been noted overnight. Did not require any supplemental oxygen overnight. Objective: Echocardiogram shows an EF of 65% with stage I diastolic dysfunction,RVSP of 39 and 1-2+ aortic insufficiency. General: Alert, Oriented x3, Cooperative, No apparent distress, Well developed, Well nourished, - - Speaking in full sentences. HEENT: Atraumatic, PERRLA, EOMI, Normocephalic, - - No scleral icterus or injection noted. Oral: Moist Mucosa, No Gingival or Mucosal Lesions/ Ulcerations Neck: Supple, No JVD, No Nodes, Trachea Midline, - - IJ is clean, dry and intact Lungs: Clear to auscultation, Normal air movement, No rhonchi, No wheeze, No rales, - - Symmetric expansion. No dullness to percussion. Cardiovascular: Regular rate, Regular Rhythm, Normal S1, Normal S2, No murmurs, No rub noted, No Gallop Abdomen: Bowel Sounds Present, Soft, Non Tender, Non-Distended Extremities: No clubbing, No cyanosis, No edema, Capillary Refill Less than 3 Seconds Skin: No rashes, No breakdown, Incision - Clean, dry and intact Musculoskeletal: No Tenderness to Palpation of Joints or Extremities Lymphatic: No Cervical, Supraclavicular, or Inguinal Adenopathy Neurological: Cranial nerves II-XII grossly intact, Neuro grossly intact, Motor Exam 5/5 strength throughout Psych/Mental Status: Alert and oriented to time, place, person, mood and affect Vital Signs Temp Pulse Resp BP Pulse Ox 36.9 C 65 19 H 113/74 96 06/01/18 06:00 06/01/18 06:00 06/01/18 06:00 06/01/18 06:00 06/01/18 06:00 Oxygen Flow Rate (L/min) 2 Oxygen Delivery Method Room Air Weight: 92.7 kg Body Mass Index (BMI) 26.8 Intake and Output for Last 24 Hours 05/30/18 05/31/18 06/01/18 23:59 23:59 23:59 Intake Total 4869.8 / 4869.8 3840 / 3840 580 / 580 Output Total 755 / 755 2325 / 2325 1150 / 1150 Balance 4114.8 / 4114.8 1515 / 1515 -570 / -570 Labs (Last 48 Hours) 05/29/18 05/29/18 05/29/18 12:20 12:20 12:20 WBC RBC Hgb Hct MCV MCH MCHC RDW RDW Differential Plt Count MPV Immature Gran % (Auto) Neut % (Auto) Lymph % (Auto) [place] % (Auto) Eos % (Auto) Baso % (Auto) Absolute Neuts (auto) Absolute Lymphs (auto) Total Counted PT INR APTT Specimen Type Sample Site pH Bicarbonate Actual POC Total CO2 Base Excess O2 Saturation O2 % ABG pCO2 ABG pO2 O2 Delivery Device Vent Mode POC PEEP POC Pressure Suppt Blood Gas Notified Whom Blood Gas Notified Time Sodium Potassium Chloride Carbon Dioxide Anion Gap BUN Creatinine Estim Creat Clear Calc Est GFR (MDRD) Af Amer Est GFR (MDRD) Non-Af BUN/Creatinine Ratio Glucose Calcium Troponin I MRSA (PCR) Crossmatch See Detail See Detail See Detail 05/30/18 05/30/18 05/30/18 05:45 06:30 06:30 WBC 13.5 H RBC 3.67 L Hgb 11.4 L Hct 33.9 L MCV 92.4 MCH 31.1 MCHC 33.6 RDW 14.5 RDW Differential 48.4 H Plt Count 107 L MPV 10.1 Immature Gran % (Auto) Neut % (Auto) Lymph % (Auto) [place] % (Auto) Eos % (Auto) Baso % (Auto) Absolute Neuts (auto) Absolute Lymphs (auto) Total Counted PT INR APTT Specimen Type Sample Site pH Bicarbonate Actual POC Total CO2 Base Excess O2 Saturation O2 % ABG pCO2 ABG pO2 O2 Delivery Device Vent Mode POC PEEP POC Pressure Suppt Blood Gas Notified Whom Blood Gas Notified Time Sodium 143 Potassium 5.0 Chloride 112 H Carbon Dioxide 18.0 L Anion Gap 13 BUN 20 H Creatinine 1.67 H Estim Creat Clear Calc 43.71 Est GFR (MDRD) Af Amer 53 L Est GFR (MDRD) Non-Af 44 L BUN/Creatinine Ratio 12.0 Glucose 145 H Calcium 7.2 L Troponin I MRSA (PCR) Negative Crossmatch 05/30/18 05/30/18 05/30/18 06:30 07:25 09:00 WBC RBC Hgb Hct MCV MCH MCHC RDW RDW Differential Plt Count MPV Immature Gran % (Auto) Neut % (Auto) Lymph % (Auto) [place] % (Auto) Eos % (Auto) Baso % (Auto) Absolute Neuts (auto) Absolute Lymphs (auto) Total Counted PT 16.1 H INR 1.3 APTT 24.3 Specimen Type RANDOLPH Sample Site OTHER pH 7.36 Bicarbonate Actual 19.0 L POC Total CO2 20 Base Excess -6 L O2 Saturation 99 O2 % 30 ABG pCO2 33.4 L ABG pO2 135 H O2 Delivery Device Vent Vent Mode CPAP PS POC PEEP 5 POC Pressure Suppt 5 Blood Gas Notified Whom ICU MD Blood Gas Notified Time 724 Sodium Potassium Chloride Carbon Dioxide Anion Gap BUN Creatinine Estim Creat Clear Calc Est GFR (MDRD) Af Amer Est GFR (MDRD) Non-Af BUN/Creatinine Ratio Glucose Calcium Troponin I 0.594 H MRSA (PCR) Crossmatch 05/30/18 05/30/18 05/30/18 12:30 16:10 16:10 WBC RBC Hgb 9.2 L Hct 27.1 L MCV MCH MCHC RDW RDW Differential Plt Count MPV Immature Gran % (Auto) Neut % (Auto) Lymph % (Auto) [place] % (Auto) Eos % (Auto) Baso % (Auto) Absolute Neuts (auto) Absolute Lymphs (auto) Total Counted PT INR APTT Specimen Type Sample Site pH Bicarbonate Actual POC Total CO2 Base Excess O2 Saturation O2 % ABG pCO2 ABG pO2 O2 Delivery Device Vent Mode POC PEEP POC Pressure Suppt Blood Gas Notified Whom Blood Gas Notified Time Sodium Potassium Chloride Carbon Dioxide Anion Gap BUN Creatinine Estim Creat Clear Calc Est GFR (MDRD) Af Amer Est GFR (MDRD) Non-Af BUN/Creatinine Ratio Glucose Calcium Troponin I 0.921 H* 0.978 H* MRSA (PCR) Crossmatch 05/30/18 05/30/18 05/30/18 16:10 19:20 21:55 WBC RBC Hgb 8.4 L Hct 24.6 L MCV MCH MCHC RDW RDW Differential Plt Count MPV Immature Gran % (Auto) Neut % (Auto) Lymph % (Auto) [place] % (Auto) Eos % (Auto) Baso % (Auto) Absolute Neuts (auto) Absolute Lymphs (auto) Total Counted PT INR APTT Specimen Type Sample Site pH Bicarbonate Actual POC Total CO2 Base Excess O2 Saturation O2 % ABG pCO2 ABG pO2 O2 Delivery Device Vent Mode POC PEEP POC Pressure Suppt Blood Gas Notified Whom Blood Gas Notified Time Sodium 142 Potassium 4.3 Chloride 111 H Carbon Dioxide 22.0 Anion Gap 9 BUN 25 H Creatinine 1.85 H Estim Creat Clear Calc 39.46 Est GFR (MDRD) Af Amer 47 L Est GFR (MDRD) Non-Af 39 L BUN/Creatinine Ratio 13.5 Glucose 117 H Calcium 7.2 L Troponin I 0.991 H* MRSA (PCR) Crossmatch 05/31/18 05/31/18 05/31/18 04:15 04:15 17:15 WBC 8.8 RBC 2.39 L Hgb 7.7 L 8.7 L Hct 22.4 L 26.1 L MCV 93.7 MCH 32.2 H MCHC 34.4 RDW 14.5 RDW Differential 47.2 H Plt Count 81 L MPV 9.3 Immature Gran % (Auto) Neut % (Auto) Lymph % (Auto) [place] % (Auto) Eos % (Auto) Baso % (Auto) Absolute Neuts (auto) Absolute Lymphs (auto) Total Counted PT INR APTT Specimen Type Sample Site pH Bicarbonate Actual POC Total CO2 Base Excess O2 Saturation O2 % ABG pCO2 ABG pO2 O2 Delivery Device Vent Mode POC PEEP POC Pressure Suppt Blood Gas Notified Whom Blood Gas Notified Time Sodium 143 Potassium 3.8 Chloride 111 H Carbon Dioxide 26.0 Anion Gap 6 BUN 25 H Creatinine 1.63 H Estim Creat Clear Calc 44.79 Est GFR (MDRD) Af Amer 54 L Est GFR (MDRD) Non-Af 45 L BUN/Creatinine Ratio 15.3 Glucose 106 Calcium 7.3 L Troponin I MRSA (PCR) Crossmatch 06/01/18 06/01/18 04:30 04:30 WBC 8.6 RBC 2.59 L Hgb 8.0 L Hct 24.1 L MCV 93.1 MCH 30.9 MCHC 33.2 RDW 14.5 RDW Differential 48.4 H Plt Count 70 L MPV 9.6 Immature Gran % (Auto) 0.100 Neut % (Auto) 61.0 Lymph % (Auto) 27.5 [place] % (Auto) 10.2 H Eos % (Auto) 1.2 Baso % (Auto) 0.0 Absolute Neuts (auto) 5.3 Absolute Lymphs (auto) 2.37 Total Counted Not Reportable PT INR APTT Specimen Type Sample Site pH Bicarbonate Actual POC Total CO2 Base Excess O2 Saturation O2 % ABG pCO2 ABG pO2 O2 Delivery Device Vent Mode POC PEEP POC Pressure Suppt Blood Gas Notified Whom Blood Gas Notified Time Sodium 145 Potassium 3.8 Chloride 110 H Carbon Dioxide 25.0 Anion Gap 10 BUN 16 Creatinine 1.34 H Estim Creat Clear Calc 54.48 Est GFR (MDRD) Af Amer 68 Est GFR (MDRD) Non-Af 56 L BUN/Creatinine Ratio 11.9 Glucose 93 Calcium 7.6 L Troponin I MRSA (PCR) Crossmatch Clinical Impression(s) from Imaging Studies Chest X-Ray 05/31/18 06:00 IMPRESSION: Small left pleural effusion with underlying infiltration and/or atelectasis in the left lower lobe. Electronically Signed: Trey King MD at 9:33 EDT Tel [phone], Service support , Medical Necessity - Tobacco Use Smoking Status: Former smoker Assessment/Plan All Active Problems Renal malignant tumor (Acute) Glaucoma (Acute) Acute blood loss as cause of postoperative anemia (Acute) RECOMMENDATIONS: 1. Increase activity as tolerated 2. Discontinue Chris catheter 3. Outpatient stress test 4. Bronchodilators only if needed 5. Okay to leave the intensive care unit 6. Hemodynamically stable on room air. Will sign off from a critical care perspective IMPRESSIONS: 1. Acute respiratory failure Patient has been doing well on room air since extubation. Patient does have a history of smoking, but no wheezing has been reported. Continue to suggest compliance with incentive spirometer. Bronchodilators as needed is likely sufficient. Outpatient follow-up with pulmonary for evaluation of COPD can be completed if requested. Otherwise, patient hemodynamically stable on room air. Will sign off from a critical care perspective. 2. Hemorrhagic shock status post partial nephrectomy Patient's hemoglobin has been relatively stable. Patient does have thrombocytopenia, but this is likely consumptive given hemorrhage issues earlier in the week. Patient has remained hemodynamically stable. Some decrease in blood counts may be secondary to dilution. Likely okay to discontinue all IV fluids. Defer to urology, but patient may be able to have Chris removed. 3. Acute kidney injury Patient with an elevated creatinine following surgery. Urine output and creatinine appears to be improving. Patient currently is on room air, so can give aggressive fluid challenges. Patient has no indication for renal replacement therapy at this time. 4. Non-ST elevation ME Patient did have an elevation of troponin following significant hemorrhage. Patient would likely benefit from a stress test completed as an outpatient. Consider low-dose aspirin. Defer to primary service, but cardiology likely does not need to be consulted. 5. Glaucoma Complicates care, management, recovery and prognosis. Code Visit Inpatient E&M: 25693 Subs Hosp L2
--- NOTE | 2018-06-01 08:10 | PCM.PROGNOTE ---
Patient Problems: Active and Suspected Problems Renal malignant tumor (Acute) Glaucoma (Acute) Acute blood loss as cause of postoperative anemia (Acute) Subjective: doing well clinically stable good uop passing gas adv reg diet as tolerated. ambulate - Physical Exam General: Alert, Oriented x3, Cooperative HEENT: Atraumatic, PERRLA, EOMI, Normocephalic Neck: Supple, No JVD, Negative Carotid Bruits Lungs: Clear to auscultation, Normal air movement Cardiovascular: Regular rate, No murmurs Abdomen: Bowel Sounds Present, Soft, Non Tender Extremities: No edema, Capillary Refill Less than 3 Seconds Skin: No rashes, No breakdown Musculoskeletal: No Tenderness to Palpation of Joints or Extremities Neurological: Cranial nerves II-XII grossly intact Psych/Mental Status: Normal Affect, Appropriate Vital Signs Temp Pulse Resp BP Pulse Ox 98.6 F 61 18 116/64 98 06/01/18 07:00 06/01/18 07:35 06/01/18 07:00 06/01/18 07:00 06/01/18 07:00 Oxygen Flow Rate (L/min) 2 Oxygen Delivery Method Room Air Weight: 92.7 kg Body Mass Index (BMI) 26.8 Intake and Output for Last 24 Hours 05/30/18 05/31/18 06/01/18 23:59 23:59 23:59 Intake Total 4869.8 / 4869.8 3840 / 3840 580 / 580 Output Total 755 / 755 2325 / 2325 1150 / 1150 Balance 4114.8 / 4114.8 1515 / 1515 -570 / -570 Laboratory Tests Past 24 Hrs 05/29/18 05/31/18 06/01/18 12:20 17:15 04:30 WBC 8.6 RBC 2.59 L Hgb 8.7 L 8.0 L Hct 26.1 L 24.1 L MCV 93.1 MCH 30.9 MCHC 33.2 RDW 14.5 RDW Differential 48.4 H Plt Count 70 L MPV 9.6 Immature Gran % (Auto) 0.100 Neut % (Auto) 61.0 Lymph % (Auto) 27.5 [place] % (Auto) 10.2 H Eos % (Auto) 1.2 Baso % (Auto) 0.0 Absolute Neuts (auto) 5.3 Absolute Lymphs (auto) 2.37 Total Counted Not Reportable Sodium Potassium Chloride Carbon Dioxide Anion Gap BUN Creatinine Estim Creat Clear Calc Est GFR (MDRD) Af Amer Est GFR (MDRD) Non-Af BUN/Creatinine Ratio Glucose Calcium Crossmatch See Detail 06/01/18 04:30 WBC RBC Hgb Hct MCV MCH MCHC RDW RDW Differential Plt Count MPV Immature Gran % (Auto) Neut % (Auto) Lymph % (Auto) [place] % (Auto) Eos % (Auto) Baso % (Auto) Absolute Neuts (auto) Absolute Lymphs (auto) Total Counted Sodium 145 Potassium 3.8 Chloride 110 H Carbon Dioxide 25.0 Anion Gap 10 BUN 16 Creatinine 1.34 H Estim Creat Clear Calc 54.48 Est GFR (MDRD) Af Amer 68 Est GFR (MDRD) Non-Af 56 L BUN/Creatinine Ratio 11.9 Glucose 93 Calcium 7.6 L Crossmatch Medical Necessity - Tobacco Use Smoking Status: Former smoker Assessment/Plan All Active Problems Renal malignant tumor (Acute) Glaucoma (Acute) Acute blood loss as cause of postoperative anemia (Acute) d/c fabian heplock ivf keep central line for access ambulate adv diet as tolerated. transfer to floor cbc and bmp tomorrow am.
[2018-06-01] MEDS: BRIMONIDINE 0.2% 5ML BOTTLE 1 DRP EACH EYE ×2 (09:20→22:14)
[2018-06-01] MEDS: Senna Tablet 2 TABLET PO ×2 (09:21→22:15)
[2018-06-01] MEDS: Timolol 0.5% 5ML OPTH.BTL 1 DRP EACH EYE ×2 (09:21→22:14)
[2018-06-01] MEDS: Latanoprost 0.005% 1 Bottle 1 DRP EACH EYE (09:22)
[2018-06-01] MEDS: 0.9% NaCl Peripheral Flush Adult/Peds IV ×2 (09:26→21:23)
[2018-06-01] MEDS: Famotidine 20mg IV Push Syringe Q24 300 MG IV (09:26)
[2018-06-02] VITALS (12 sets, daily range): BP systolic 108–135; BP diastolic 59–75; PULSE 62–74; RESP 16; TEMP 36.6–37.1; O2SAT 95–98
[2018-06-02] MEDS: 0.9% NaCl Peripheral Flush Adult/Peds IV (05:23)
[2018-06-02 05:39] LABS: Hematocrit 25.7 % (40-54); Hemoglobin 8.6 g/dl (13.0-16.5); Mean Corp Hgb Conc 33.5 g/gl (32-36); Mean Corpuscular Hgb 31.7 pg (27.0-32.0); Mean Corpuscular Volume 94.8 fL (80-94); Mean Platelet Vol. 9.6 fl (6.2-12.0); Platelet Count 106 K/mm3 (150-450); RBC Distribution Width CV 13.9 % (11.6-14.6); RBC Distribution Width SD 45.2 fl (35.1-43.9); Red Blood Count 2.71 M/mm3 (4.6-6.2); White Blood Count 7.4 K/mm3 (4.4-11.0)
[2018-06-02 05:58] LABS: Anion Gap 8 (5-15); BUN 13 mg/dL (7-18); BUN/Creat Ratio 9.4 RATIO (10-20); Calcium,Total 8.3 mg/dL (8.5-10.1); Chloride 108 mmol/L (98-107); Creatinine, Serum 1.39 mg/dL (0.70-1.30); EST Glomerular Filtration Rate 54 mL/min (>60); Est Glom Filt Rate - Afr Amer 65 mL/min (>60); Estimated Creatinine Clearance 52.52 ml/min; Glucose 103 mg/dL (74-106); Potassium 3.8 mmol/L (3.5-5.1); Sodium Level 143 mmol/L (136-145)
[2018-06-02 06:07] LABS: Scan Indicated on CBC? Y/N NO
[2018-06-02] MEDS: oxyCODONE 5 MG Tablet PO ×3 (08:31→21:04)
[2018-06-02] MEDS: Senna Tablet 2 TABLET PO ×2 (09:38→21:06)
[2018-06-02] MEDS: Timolol 0.5% 5ML OPTH.BTL 1 DRP EACH EYE ×2 (09:39→21:04)
[2018-06-02] MEDS: Latanoprost 0.005% 1 Bottle 1 DRP EACH EYE (09:40)
[2018-06-02] MEDS: BRIMONIDINE 0.2% 5ML BOTTLE 1 DRP EACH EYE ×2 (09:40→21:04)
--- NOTE | 2018-06-02 12:29 | PCM.PROGNOTE ---
Patient Problems: Active and Suspected Problems Renal malignant tumor (Acute) Glaucoma (Acute) Acute blood loss as cause of postoperative anemia (Acute) Subjective: doing well some incisional pain this morning lizy reg diet, ambulating + flatus no BMs - Physical Exam General: Alert, Oriented x3, Cooperative HEENT: Atraumatic, PERRLA, EOMI, Normocephalic Neck: Supple, No JVD, Negative Carotid Bruits Lungs: Clear to auscultation, Normal air movement Cardiovascular: Regular rate, No murmurs Abdomen: Bowel Sounds Present, Soft, Non Tender Extremities: No edema, Capillary Refill Less than 3 Seconds Skin: No rashes, No breakdown Musculoskeletal: No Tenderness to Palpation of Joints or Extremities Neurological: Cranial nerves II-XII grossly intact Psych/Mental Status: Normal Affect, Appropriate Vital Signs Temp Pulse Resp BP Pulse Ox 98 F 72 16 129/65 H 97 06/02/18 08:41 06/02/18 11:30 06/02/18 08:41 06/02/18 08:41 06/02/18 08:41 Oxygen Flow Rate (L/min) 2 Oxygen Delivery Method Room Air Weight: 89.5 kg Body Mass Index (BMI) 26.8 Intake and Output for Last 24 Hours 05/31/18 06/01/18 06/02/18 23:59 23:59 23:59 Intake Total 3840 / 3840 1240 / 1240 930 / 930 Output Total 2325 / 2325 2225 / 2225 1125 / 1125 Balance 1515 / 1515 -985 / -985 -195 / -195 Laboratory Tests Past 24 Hrs 06/02/18 06/02/18 05:25 05:25 WBC 7.4 RBC 2.71 L Hgb 8.6 L Hct 25.7 L MCV 94.8 H MCH 31.7 MCHC 33.5 RDW 13.9 RDW Differential 45.2 H Plt Count 106 L MPV 9.6 Sodium 143 Potassium 3.8 Chloride 108 H Carbon Dioxide 27.0 Anion Gap 8 BUN 13 Creatinine 1.39 H Estim Creat Clear Calc 52.52 Est GFR (MDRD) Af Amer 65 Est GFR (MDRD) Non-Af 54 L BUN/Creatinine Ratio 9.4 L Glucose 103 Calcium 8.3 L Medical Necessity - Tobacco Use Smoking Status: Former smoker Assessment/Plan All Active Problems Renal malignant tumor (Acute) Glaucoma (Acute) Acute blood loss as cause of postoperative anemia (Acute) probably home tomorrow with follow up on with me if doing well.
[2018-06-03 01:52] VITALS: BP 129/72; PULSE 59; RESP 16; TEMP 36.5; O2SAT 97
[2018-06-03] MEDS: oxyCODONE 5 MG Tablet PO ×3 (02:01→10:36)
[2018-06-03 03:11] VITALS: PULSE 62
[2018-06-03 06:35] VITALS: BP 141/68; PULSE 67; RESP 16; TEMP 36.6; O2SAT 96
--- NOTE | 2018-06-03 07:10 | PCM.DC.URO ---
Discharge Diet: No Restrictions, Light diet - advance as tolerated Discharge Activity: May not drive while taking narcotic pain medications. Additional Activity Instructions:: f you have a catheter, remove on ___. If you have any problems after catheter is removed, call [phone] and ask for your doctor to be paged. Please be aware that pain medications may cause nausea. You should typically eat light foods as you take your pain medication. Pain medication may cause constipation, if this is a problem for you, please discuss with your doctor. Call your doctor if your incision/area has: Continuous Slow Oozing, Sudden Increased Bleeding, Increased Pain/ Swelling, Increased Redness, Foul Smelling Discharge, Swelling at the incision site Call your doctor if you observe: Fever of 101 or Higher, Inability to urinate, Inability to have a bowel movement, Uncontrolled pain Suture Line Care: Avoid Pulling/Pushing, Avoid Pinching/Bending Cleanse incision/area with: Soap & Water Instructions: Discharge Instructions for Nephrectomy Allergies/Adverse Reactions: Allergies No Known Allergies Allergy (Verified 05/29/18 12:11) Medications to take at Discharge Brimonidine 0.15% [Alphagan P 0.15%] 1 drop EACH EYE TID 05/23/18 Latanoprost [Latanoprost] 1 drop EACH EYE DAILY 05/23/18 Timolol [Betimol] 1 drop EACH EYE DAILY 05/23/18 Docusate Sodium [Colace] 100 mg PO BID #20 cap 05/29/18 Hydrocodone/Acetaminophen [Vicodin 5-300 mg Tablet] 1 tab PO Q4H PRN PRN 5 Days #14 tab 05/29/18 The following prescriptions were given: Hydrocodone/Acetaminophen [Vicodin 5-300 mg Tablet] 1 tab PO Q4H PRN PRN 5 Days #14 tab PRN Reason: Pain Docusate Sodium [Colace] 100 mg PO BID #20 cap Primary Care Physician: Kenton Rendon MD [Primary Care Provider] - Test Results: Test results from this visit will be discussed in further detail at your follow-up appointment, if applicable. Please Follow Up With: Claude Khan MD When: please call to make an appointment. - this .
--- NOTE | 2018-06-03 07:12 | PCM.DC.SUM ---
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 At this point his labs are stable he is making good urine output, had a bowel movement, tolerating regular diet, ambulating, pain is under control clinically stable. Discharge Diet: No Restrictions, Light diet - advance as tolerated Discharge Activity: May not drive while taking narcotic pain medications. Additional Activity Instructions:: f you have a catheter, remove on ___. If you have any problems after catheter is removed, call [phone] and ask for your doctor to be paged. Please be aware that pain medications may cause nausea. You should typically eat light foods as you take your pain medication. Pain medication may cause constipation, if this is a problem for you, please discuss with your doctor. Call your doctor if your incision/area has: Continuous Slow Oozing, Sudden Increased Bleeding, Increased Pain/ Swelling, Increased Redness, Foul Smelling Discharge, Swelling at the incision site Call your doctor if you observe: Fever of 101 or Higher, Inability to urinate, Inability to have a bowel movement, Uncontrolled pain Suture Line Care: Avoid Pulling/Pushing, Avoid Pinching/Bending Cleanse incision/area with: Soap & Water Home Medications: Medications to take at Discharge Brimonidine 0.15% [Alphagan P 0.15%] 1 drop EACH EYE TID 05/23/18 Latanoprost [Latanoprost] 1 drop EACH EYE DAILY 05/23/18 Timolol [Betimol] 1 drop EACH EYE DAILY 05/23/18 Docusate Sodium [Colace] 100 mg PO BID #20 cap 05/29/18 Hydrocodone/Acetaminophen [Vicodin 5-300 mg Tablet] 1 tab PO Q4H PRN PRN 5 Days #14 tab 05/29/18 Following Prescrptions Were Given to Patient: Hydrocodone/Acetaminophen [Vicodin 5-300 mg Tablet] 1 tab PO Q4H PRN PRN 5 Days #14 tab PRN Reason: Pain Docusate Sodium [Colace] 100 mg PO BID #20 cap Primary Care Physician: Kenton Rendon MD [Primary Care Provider] - Please Follow Up With: Claude Khan MD When: please call to make an appointment. - this . Patient Instructions: Discharge Instructions for Nephrectomy Medical Necessity - Tobacco Use Smoking Status: Former smoker Meaningful Use Info Meaningful Use Diagnoses (Choose all that apply): None applicable
[2018-06-03 07:15] VITALS: PULSE 75
[2018-06-03 09:30] VITALS: BP 139/64; PULSE 64; RESP 16; TEMP 36.7; O2SAT 97
[2018-06-03] MEDS: BRIMONIDINE 0.2% 5ML BOTTLE 1 DRP EACH EYE (09:34)
[2018-06-03] MEDS: Timolol 0.5% 5ML OPTH.BTL 1 DRP EACH EYE (09:34)
[2018-06-03] MEDS: Latanoprost 0.005% 1 Bottle 1 DRP EACH EYE (09:34)
[2018-06-03] MEDS: Senna Tablet 2 TABLET PO (09:47)
[2018-06-03 10:08] VITALS: BP 139/64; PULSE 64; RESP 16; TEMP 36.7; O2SAT 97
== END 2018-06-03 11:03 | disposition home or self-care (01) | DRG 656 ==
LOC: ICU 05-30 04:27 → MS3 05-30 07:40 → SDC 05-30 07:40 → ICU 05-31 13:15 → PCU 06-03 07:33
PROVIDERS: Internal Medicine Critical Care Medicine; Urology; Admitting Provider Urology; Family Provider Internal Medicine; PCP Internal Medicine; Visit Provider Urology
PROC: 0TB14ZZ Excision of Left Kidney, Percutaneous Endoscopic Approach (ICD-10-PCS; CPT 50543; principal; 2018-05-29 13:05)
DX: C64.2 Malignant neoplasm of left kidney, except renal pelvis (principal); R57.8 Other shock; I21.4 Non-ST elevation (NSTEMI) myocardial infarction; J96.00 Acute respiratory failure, unspecified whether with hypoxia or hypercapnia; N99.820 Postprocedural hemorrhage of a genitourinary system organ or structure following a genitourinary system procedure; D62 Acute posthemorrhagic anemia; N17.9 Acute kidney failure, unspecified; H40.9 Unspecified glaucoma; Z87.891 Personal history of nicotine dependence
CPT/HCPCS: 36415; 71045; 71046; 74018; 80048; 80053; 82550; 82803; 84478; 84484; 85014; 85018; 85025; 85027; 85610; 85730; 86850; 86900; 86920; 87641; 88307; 93005; 93306; 94002; 94660; 95831; 97110; 97116; 97162; 97166; 97530; 97535; J7030; J7040; J7120; P9016; P9017; A4216; C1751; J2405; J3490

== ENCOUNTER → 2018-09-09 09:28 | Outpatient (CLI) | payer MEDICARE, SELFPAY ==
[2018-09-09 11:18] LABS: AST(SGOT) 26 U/L (15-37); Alanine Aminotransfer ALT/SGPT 23 U/L (16-61); Albumin, Serum 3.6 g/dL (3.2-5.0); Alkaline Phosphatase 76 U/L (45-117); Bilirubin, Direct 0.15 mg/dL (0.00-0.30); Cholesterol 182 mg/dL (200); High Density Lipoprotein 88 mg/dL; Protein, Total 7.6 g/dL (6.4-8.2); Triglycerides 79 mg/dL; Very Low Density Lipoprotein 16 mg/dL (5-40)
--- OUTSIDE RECORDS SUMMARY | 2018-11-02 13:37 | XMS RPT_ITS ---
:1950 Author Organization OHIP Support Name Relationship Address Phone NATALIENEO Unavailable Unavailable + [place], [place] NATALIE PHUC Unavailable Unavailable + [place] [id number] R Unavailable Unavailable Unavailable NATALIE NEO Unavailable Unavailable + [place], [place] ESTRADAMARICELPHUC Unavailable Unavailable + [place] [address] R Unavailable Unavailable Unavailable NATALIE NEO Unavailable Unavailable + [place], [place] ESTRADA PHUC Unavailable Unavailable + [place] [address] R Unavailable Unavailable Unavailable NATALIE NEO Unavailable . + ., [place] . NATALIE PHUC Unavailable . + ., [place] . R Unavailable Unavailable Unavailable NATALIE NEO Unavailable Unavailable + NATALIE PHUC Unavailable Unavailable + R Unavailable Unavailable Unavailable NATALIE NEO Unavailable Unavailable + NATALIE PHUC Unavailable Unavailable + R Unavailable Unavailable Unavailable NATALIE NEO Unavailable Unavailable + NATALIE PHUC Unavailable Unavailable + R Unavailable Unavailable Unavailable NATALIE NEO Unavailable Unavailable + NATALIE PHUC Unavailable Unavailable + R Unavailable Unavailable Unavailable NATALIE NEO Unavailable Unavailable + NATALIE PHUC Unavailable Unavailable + R Unavailable Unavailable Unavailable NATALIE NEO Unavailable Unavailable + NATALIE PHUC Unavailable Unavailable + R Unavailable Unavailable Unavailable Care Team Providers Name Role Phone PRADIP GELLER Attending Unavailable CARY CONDE (OD) Referring Unavailable OLDER, SILKE (ASSOCIATE TECHNICIAN) Attending Unavailable SÁNCHEZ, JULIO C Attending Unavailable SÁNCHEZ, JULIO C Referring Unavailable SÁNCHEZ, JULIO C Referring Unavailable Erin, Claude Cooney Attending Unavailable Erin, Tee Referring Unavailable Sánchez, Kenton Primary Care Unavailable Erin, Tee Admitting Unavailable Pamrinder, Thaddeus Consulting Unavailable Thaddeus Zurita Attending Unavailable Erin, Claude Cooney Referring Unavailable Fred, Avtar Attending Unavailable Erin, Claude Cooney Referring Unavailable HassanKannan Attending Unavailable Erin, Claude Cooney Referring Unavailable Fred, Avtar Attending Unavailable Parminder, Thaddeus Referring Unavailable PerezGin Attending Unavailable Kannan Hassan Attending Unavailable Sánchez, Kenton Referring Unavailable Kannan Hassan Attending Unavailable Kannan Hassan Referring Unavailable Sánchez, Kenton Primary Care Unavailable Kannan Hassan Attending Unavailable Kannan Hassan Referring Unavailable Sánchez, Kenton Primary Care Unavailable Kannan Hassan Attending Unavailable Kannan Hassan Referring Unavailable Sánchez, Kenton Primary Care Unavailable Kannan Hassan Consulting Unavailable PROBLEMS PROBLEMS DATE TYPE CONDITION / CODE ATTENDING STATUS SOURCE 09/11/2018 Unknown R74.8 - Abnormal Kannan Hassan Active [place] levels of other serum [facility] enzymes / Hospital R74.8(ICD-10) Repository 09/11/2018 Unknown I35.1 - Nonrheumatic Kannan Hassan Active [place] aortic (valve) [facility] insufficiency / Hospital I35.1(ICD-10) Repository 07/05/2018 Active Acute posthemorrhagic NA Active [place] anemia / D62(ICD-10) Clinic Main [place] Repository 07/05/2018 Active Other acute kidney NA Active [place] failure / Clinic Main N17.8(ICD-10) [place] Repository 07/09/2018 Active Encounter for NA [facility] screening for other [facility] Main viral diseases / [place] Z11.59(ICD-10) Repository 07/05/2018 Active Non-ST elevation NA Active [place] (NSTEMI) myocardial [facility] Main infarction / [place] I21.4(ICD-10) Repository 07/02/2018 Unknown I21.4 - Non-ST Fred, Avtar Active [place] elevation (NSTEMI) [facility] myocardial infarction Hospital / I21.4(ICD-10) Repository 06/03/2018 Unknown R93.422 - Abnormal ErinClaude collins Active [place] radiologic findings on [facility] diagnostic imaging of Hospital left kidney / Repository R93.422(ICD-10) 06/12/2018 Unknown J96.00 - Acute Parminder, Thaddeus Active [place] respiratory failure, Community unspecified whether Hospital with hypoxia or Repository hypercapnia / J96.00(ICD-10) 06/12/2018 Unknown R57.8 - Other shock / Parminder, Thaddeus Active [place] R57.8(ICD-10) Community Hospital Repository 06/12/2018 Unknown N17.8 - Other acute Parminder, Thaddeus Active [place] kidney failure / Community N17.8(ICD-10) Hospital Repository 06/12/2018 Unknown H40.9 - Unspecified Parminder, Thaddeus Active [place] glaucoma / Community H40.9(ICD-10) Hospital Repository 06/27/2018 Unknown R94.31 - Abnormal Fred, Rye Active [place] electrocardiogram Community [ECG] [EKG] / Hospital R94.31(ICD-10) Repository 06/27/2018 Unknown R00.1 - Bradycardia, Fred, Rye Active [place] unspecified / Community R00.1(ICD-10) Hospital Repository 11/07/2017 Active Preglaucoma, EISENGART, Active [place] unspecified, bilateral PRADIP A Clinic Main / H40.003(ICD-10) [place] Repository PROCEDURES PROCEDURES No Procedure Records FoundRESULTS RESULTS STRESS TEST ECHO W/O Observed: 09/11/2018 Status: F Source: [place] CONTRAST 5:02 PM [facility] REPOSITORY [facility] Cardiovascular Services [address] [place] [address] Stress Test Echo w/o Contrast MR#: [id number] Acct: [id number] Name: HEATHER ESTRADA Rep #: [id number] : 1950 68 From: Kannan Hassan MD Primary Care: Kenton Sánchez MD Status: REG CLI Ordering Dr: Kannan Hassan MD Sex: M C Reason For Study: ELEVATED TROPONIN Stress Results Protocol: Stress Echocardiogram Maximum Predicted HR: 152 bpm Target HR: 129 bpm % Maximum Predicted HR: 97 % DurationHeart Rate Stage (mm:ss) (bpm) BP BASELINE 63 128/78 THADDEUS PROTOCOL- STAGE 1 3:00 110 146/76 THADDEUS PROTOCOL- STAGE 2 3:00 130 158/76 THADDEUS PROTOCOL- STAGE 3 1:11 148 / RECOVERY 79 118/70 Stress Duration: 7:11 mm:ss Maximum Stress HR: 148 bpm Baseline Echocardiogram Findings The estimated ejection fraction is 65 %. Stress Echo Wall motion Data Resting WM Intermediate WM Stress WM Resting Wall Motion Wall Motion Stress No regional wall motion No regional wall motion abnormalities noted. abnormalities noted. EKG Data The baseline ECG displays normal sinus rhythm. The patient exercised according to the regular Thaddeus protocol for a total duration of 7:11. The maximum heart rate attained was 148 beats per minute. This was 97% of maximum predicted heart rate. The patient exercised into stage 3 of the Thaddeus protocol. During stress, there were no ST or T wave changes noted to suggest ischemia. No clinical angina was noted. Interpretation Summary The estimated ejection fraction is 65 %. Normal, adequate, treadmill echocardiogram. Negative for ischemia by EKG and echocardiographic criteria. No anginal symptoms noted. Appropriate blood pressure response to exercise. Rare PVC noted. Final LVEF is 75%. Test terminated due to the attainment of target heart rate, dyspnea and fatigue. No complications. Ordering Physician: Kannan Hassan Referring Physician: Kenton Sánchez M.D. Performed By: Lori Finley, ALEJANDRO, RVT 09/11/181701 Date Kannan Hassan MD CC: Kannan Hassan MD; Kenton Sánchez MD Date Dictated: 09/10/18 1050 Date Transcribed: 09/11/181701 Childcare Administrator: Signed LIVER PROFILE Collected: 09/09/2018 Status: F Source: [place] 9:32 AM [facility] REPOSITORY TYPE CODE TESTS RESULT OUT OF RANGE REFERENCE UNITS LAB L501.1500 6.4-8.2 g/dL Normal T PROT 7.6 LAB L501.1800 3.2-5.0 g/dL Normal ALB 3.6 LAB L501.1950 2.2-4.2 g/dL Normal GLOB 4.0 LAB L501.4100 15-37 U/L Normal AST 26 LAB L501.4305 45-117 U/L Normal ALK P 76 LAB L501.4405 16-61 U/L Normal ALT 23 LAB L501.4600 0.20-1.00 mg/dL Normal T BILI 0.70 LAB L501.4700 0.00-0.30 mg/dL Normal D BILI 0.15 Performed By: #### L500.3400, L500.4100 #### [facility] [address] [place], [address] LIPID PROFILE Collected: 09/09/2018 Status: F Source: [place] 9:32 AM [facility] REPOSITORY TYPE CODE TESTS RESULT OUT OF RANGE REFERENCE UNITS LAB L501.4900 200 mg/dL Normal CHOL 182 Result Comment: <200 mg/dL Desirable 200-240 mg/dL Borderline >240 mg/dL High Risk LAB L501.5000 mg/dL Normal TRIG 79 Result Comment: The drugs N-Acetylcysteine and Metamizole may falsely depress this assay. Serum Triglycerides Reference Interval Normal <150 mg/dL Borderline high 150 - 199 mg/dL High 200 - 499 mg/dL Very High > or = 500 mg/dL LAB L501.6400 mg/dL Normal HDL 88 Result Comment: The drugs N-Acetylcysteine and Metamizole may falsely depress this assay. Reference Range HDL <40 mg/dL Low HDL Cholesterol HDL >or= 60 mg/dL High HDL Cholesterol LAB L501.6500 0-130 mg/dL Normal LDL 78 LAB L501.6600 5-40 mg/dL Normal VLDL 16 Performed By: #### L500.3400, L500.4100 #### [facility] [address] [facility] [place], [address] CARDIOLOGY VISIT Observed: 07/30/2018 Status: F Source: [place] REPORT 3:19 PM [facility] REPOSITORY [place] [facility] [address] [place] [address] OFFICE VISIT Date of Service: 07/30/18 MR#: [id number] Acct: [id number] Name: HEATHER ESTRADA Rep #: [id number] : 1950 Provider: Kannan Hassan MD Age/Sex: 68/M Location: [facility] Status: Signed HPI HPI Chief Complaint: Aortic insufficiency Details: HEATHER ESTRADA, is a 68 M who presents to the office today for evaluation of aortic and elevated troponin after a partial nephrectomy complicated by acute blood loss requiring exploratory laparotomy and greater than 3000 units of EBL after presenting to [facility] with abdominal pain. Patient received 3-4 units of PRBCs as well as a unit of FFP. An a CT scan and MRI was performed which demonstrated a left renal hilar mass, consistent with probable renal cancer. 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 During his postoperative stay he had a peak troponin of 0.994. Echocardiogram was performed on 05/31/18 which demonstrated normal LV function with an EF of 65%, RVSP of 39 mmHg, 1-2+ aortic insufficiency, and stage I diastolic dysfunction. Patient is now here in follow-up per his PCP with respect to his abnormal troponin. On further history the patient is a nondiabetic, previous smoker who quit on April 13, 2018 after less than 1 pack/day for 35 years, does drink alcohol 2 times per night. Patient is fairly active and back to his normal routine with exercise and swimming on a regular basis. He has no family history and no personal history of coronary disease. Patient has denied any chest pain, angina, shortness of breath or dyspnea on exertion prior to and subsequent to his renal surgery. He is taking and tolerating his medicines well. In our office today's blood pressure is 118/60, pulse is 68 and regular. His physical exam demonstrates clear lungs bilaterally, regular rate and rhythm, normal S1/S2, no S3 or S4. He has no edema. His lipids are pending. EKG today 07/30/18 showed normal sinus rhythm, normal axis, normal intervals, no evidence of previous myocardial infarction. Intake Vital Signs07/30/18 Height 5 ft 10 in 07/30/18 Weight: 173 lb 07/30/18 Body Mass Index (BMI) 24.8 07/30/18 Blood Pressure 118/60 Intake Visit Reasons: Inc in troponin in [facility], no consult (Erin) Allergies No Known Allergies Allergy (Verified 07/30/18 14:46) Medications Latanoprost 1 drp EACH EYE DAILY 05/23/18 [History Confirmed 07/30/18] brimonidine 0.15 % eye drops 1 drp OPHTHALMIC BID ml 07/30/18 [History Confirmed 07/30/18] timolol maleate 0.5 % eye gel forming solution 1 drp OPHTHALMIC BID ml 07/30/18 [History Confirmed 07/30/18] [facility] Medical History Nonrheumatic aortic (valve) insufficiency (Acute) Elevated troponin (Acute) Renal malignant tumor (Acute) Glaucoma (Acute) Acute blood loss as cause of postoperative anemia (Acute) GERD (gastroesophageal reflux disease) (Acute) Surgical History Amputation finger (Resolved) History of inguinal hernia repair (Resolved) History of tonsillectomy (Resolved) History of umbilical hernia repair (Resolved) S/p nephrectomy (Resolved) H/O partial nephrectomy (Inactive) Family History Father Cancer prostate Mother Cancer pancreatic Social History Smoking Status: Former smoker alcohol intake: current substance use type: does not use ROS Const Const: Negative for fatigue, weakness, weight gain, weight loss, frequent falls or excessive sweating Eyes Eyes: Negative for change in vision, blurry vision or transient loss of vision ENT ENT: Negative for dizziness or balance problems Cardio Chest Pain: No Palpitations: No Edema: None Muscle aches with walking: None Resp Respiratory: Negative for SOB with activity or SOB at rest GI GI: Negative vomiting or vomiting blood/hematemesis : Negative for hematuria Musc Musc: Negative for balance problems, muscle aches/ myalgia, muscle weakness or joint pain Skin Skin: Negative non-healing lesions or rash Neuro Neuro: Negative for weakness, blurry vision, dizziness, lightheadedness, frequent falls or orthostatic symptoms Rajendra Hematologic/Lymphatic: Negative for easy bleeding Endo Endo: Negative for fatigue or excessive sweating Psych Psych: Negative for anxiety or depression Allergy Allergy/Immunology: Negative for hives, Negative for rash Cardiology Exam Const Appearance: cooperative, healthy appearing and no acute distress Nutritional Appearance: well nourished Orientation: alert, oriented x3 and oriented to person Head Head: normal to inspection, atraumatic and normocephalic Nose: external nose normal Face and Sinus: face symmetric Mouth: oral mucosae normal Eyes General: appearance normal, both eyes and all related structures Eyelids: eyelids normal Conjunctivae: conjunctivae normal Pupils: PERRL and normal by confrontation EOM: EOM intact bilaterally Neck Neck: normal visual inspection and full ROM Carotids: normal carotid upstroke Chest Chest inspection: normal inspection of the chest Auscultation: Bilateral: Clear to Auscultation Cardio Palpation: normal PMI Rate: regular rate Rhythm: regular rhythm Heart sounds: S1 normal and S2 normal GI GI: normal to inspection, no hepatosplenomegaly and bowel sounds present Neuro General: alert, oriented x3, awake, CN's II-XI intact bilaterally and moves all extremities Skin Skin: no rashes or lesions noted Extremities Pulses: Normal: Right Femoral Pulse, Left Femoral Pulse, Right Dorsalis Pedis Pulse, Left Dorsalis Pedis Pulse, Right Posterior Tibial Pulse, Left Posterior Tibial Pulse, Right Radial Pulse, Left Radial Pulse Lower Extremity Edema: None: Bilateral Psych Psychological: normal affect Assessment AND Plan 1. Elevated troponin R74.8 Plan 1. Elevated troponin. The patient elevated troponin of 0.99 perioperatively after his acute blood loss from his renal tumor resection and subsequent internal bleeding. The patient had greater than 3 L of blood removed from his abdominal cavity, and a subsequent blood resuscitation of 3-4 units of PRBCs. Patient may have had demand ischemia due to his acute blood loss, but given his history of smoking and his age, he has several risk factors for coronary artery disease. Although he is asymptomatic I recommend he undergo a treadmill echocardiogram to evaluate his ischemic burden. If this is grossly abnormal, the patient will require diagnostic coronary angiogram. As he is asymptomatic and does not have a history of coronary disease as of this time I would recommend holding off on baby aspirin particularly in light of his acute blood loss from his surgery. In addition I recommend he undergo a fasting lipid profile to further risk stratify him. Would recommend statin based therapy of his LDL is greater than 130. Patient has quit smoking in April 2018. Orders Orders: 2. Nonrheumatic aortic (valve) insufficiency I35.1 Plan 2. Aortic insufficiency: The patient was found to have 1- 2+ aortic insufficiency on routine echocardiogram, and of recommended serial echocardiograms on a yearly basis. Patient has normal LV function. 3. Return office in 6 months. This note was generated using a voice recognition system and there may be incorrect words, spelling or punctuation that were not noted when reviewing the office note prior to saving. Orders Orders: Plan Detail Follow Up +6M (Mo) Coding Level of Care Code Off vis,new,level 4 Diagnoses Elevated troponin R74.8 Nonrheumatic aortic (valve) insufficiency I35.1 Coding Level of Care Code Off vis,new,level 4 Diagnoses Elevated troponin R74.8 Nonrheumatic aortic (valve) insufficiency I35.1 07/30/18 1519 <Electronically signed by Kannan Hassan MD> Date Kannan Hassan MD Cosigner Signature: Date (if applicable) CC: 12 LEAD EKG PERFORMED Observed: 07/30/2018 Status: F Source: [place] [facility] 2:43 PM [facility] REPOSITORY [address] [address] 12 Lead EKG performed by [facility] 07/30/18 1442 MR#: [id number] Acct: [id number] Name: HEATHER ESTRADA Rep #: [id number] : 1950 68 From: Kannan Hassan MD Attending Dr: Kannan Hassan MD Status: DEP AMB Ordering Dr: Kannan Hassan MD Date: 07/30/18 [place] [facility] [place]: M C Admitted: [facility]/12 Lead EKG performed by [facility] ECG Report Interpretation Sinus Bradycardia WITHIN NORMAL LIMITSElectronically signed on 09/20/2018 at 15:42 by Kannan Hassan Software Version [id number] 09/20/18 1546 Date Kannan Hassan MD CC: Kenton Sánchez MD Date Dictated: 07/30/181441 Date Transcribed: 07/30/181441 Childcare Administrator: Signed CBC Collected: 07/09/2018 Status: F Source: [place] 7:55 AM [facility] REPOSITORY TYPE CODE TESTS RESULT OUT OF REFERENCE UNITS RANGE LAB WBC 3.70-11.00 k/uL WBC 6.67 LAB RBC 4.20-6.00 m/uL RBC 4.22 LAB HGB 13.0-17.0 g/dL Low Hemoglobin 12.9 LAB HCT 39.0-51.0 % Hematocrit 41.6 LAB MCV 80.0-100.0 fL MCV 98.6 LAB MCH 26.0-34.0 pG MCH 30.6 LAB MCHC 30.5-36.0 g/dL MCHC 31.0 LAB RDWCV 11.5-15.0 % RDW-CV 14.0 LAB PLTCT 150-400 k/uL Platelet Count 223 LAB MPV 9.0-12.7 fL MPV 9.8 LAB ABSNUC <0.01 k/uL Absolute nRBC <0.01 Performed By: #### CBC, CMP, AHCV1B #### [facility] [address] [place] [address] COMP METABOLIC PANEL Collected: 07/09/2018 Status: F Source: [place] 7:55 AM [facility] REPOSITORY TYPE CODE TESTS RESULT OUT OF REFERENCE UNITS RANGE LAB TP 6.3-8.0 g/dL Protein, Total 6.9 LAB ALB 3.9-4.9 g/dL Albumin 4.1 LAB CA 8.5-10.2 mg/dL Calcium, Total 9.6 LAB TBIL 0.2-1.3 mg/dL Bilirubin, Total 0.3 LAB ALKP 38-113 U/L Alkaline Phosphatase 70 LAB AST 14-40 U/L AST 23 LAB GLU 74-99 mg/dL Glucose High 114 Result Comment: The [place] Diabetes Association (ADA) provides guidance for cutoff values for fasting glucose and random glucose. The ADA defines fasting as no caloric intake for at least 8 hours. Fas ting plasma glucose results between 100 to 125 mg/dL indicate increased risk for diabetes (prediabetes). Fasting plasma glucose results greater than or equal to 126 mg/dL meet the criteria for diagnosis of diabetes. In the absence of unequivocal hyperglycemia, results should be confirmed by repeat testing. In a patient with classic symptoms of hyperglycemia or hyperglycemic crisis, random plasma glucose results greater than or equal to 200 mg/dL meet the criteria for diagnosis of diabetes. Reference: Standards of Medical Care in Diabetes 2016, [place] Diabetes Association. Diabetes Care. 2016.39(Suppl 1). LAB BUN 9-24 mg/dL BUN 17 LAB CRET 0.73-1.22 mg/dL Creatinine High 1.39 LAB NA 136-144 mmol/L Sodium 138 LAB K 3.7-5.1 mmol/L Potassium 5.0 LAB CL 97-105 mmol/L Chloride 104 LAB CO2 22-30 mmol/L Low CO2 20 LAB AGAP 9-18 mmol/L Anion Gap 14 LAB ALT 10-54 U/L ALT 13 LAB GFRAA eGFR- Amer. >60 LAB GFRNAA . eGFR-All Other Races 51 Result Comment: eGFR (Estimated GFR) Units of measure: mL/min/1.73 meters squared eGFR is derived from the reexpressed MDRD Study equation using the following parameters: serum creatinine, age, gender and race. The creatinine assay has been calibrated to be traceable to IDMS. An eGFR <60 mL/min/1.73m2 for >3 months is consistent with chronic kidney disease. Refer to KDOQI guidelines for clinical interpretation. In patients with unstable renal function, e.g. those with acute kidney injury, the eGFR may not accurately reflect actual GFR. Performed By: #### CBC, CMP, AHCV1B #### [facility] [address] [place] [address] HEP C AB IA W/CONF Collected: 07/09/2018 Status: F Source: [place] 7:55 AM [facility] REPOSITORY TYPE CODE TESTS RESULT OUT OF REFERENCE UNITS RANGE LAB AHCV Negative Hepatitis C Ab Negative IA Performed By: #### CBC, CMP, AHCV1B #### [facility] [address] [place], [place] [address] ECG COMPLETE W Observed: 07/05/2018 Status: F Source: [place] INTERPRETATION 12:29 PM [facility] REPOSITORY NAME : HEATHER ESTRADA PID : [id number] : 1950 Gender : Male Race : ORD : [id number] Procedure Date : Jul 05 2018 12:29:22 Edit Date : Jul 11 2018 08:37:40 Diagnosis:SINUS BRADYCARDIA OTHERWISE NORMAL ECG Confirmed by MAXI VIERA D.O. ([id number]) on 07/11/2018 8:37:31 AM Ventricular Rate : 58 BPM Atrial Rate : 58 BPM P-R Interval : 178 ms QRS Duration : 70 ms Q-T Interval : 418 ms QTC Calculation(Bezet) : 410 ms P [place] : 67 degrees R [place] : -2 degrees T [place] : 11 degrees Test Reason : Location : 185 : [facility] Overread By : MAXI VIERA D.O. Edited By : MAXI VIERA D.O. Referred By : KENTON SÁNCHEZ Acquired by : CHARLY PROGRESS Observed: 07/05/2018 Status: COMPLETED Source: [place] 12:10 PM [facility] [place] REPOSITORY HNO ID: [id number] Author: Kenton Sánchez Service: (none) Author Type: Physician Type: Progress Notes Filed: 07/09/2018 12:52 PM Note Text: This note was created using [email or web address]. Subjective Patient presents with: Imm/Inj: Flu Vaccine Establish Care Heather Estrada was here for above. He developed abdominal pain April 12 while in [place], and was treated for colitis with Flagyl. Left renal mass was found. He was referred to Dr. Khan who planned a partial left sided nephrectomy. He was admitted 05/29 and robotic assisted left partial nephrectomy was done. Postoperative course was complicated by hemorrhagic shock, respiratory failure, acute kidney injury, and non STEMI. He was taken back to the OR for exploratory laparotomy and completion nephrectomy. Cardiac work up was negative. Postoperatively, he did well at the ICU, and discharged 06/03. PAST MEDICAL HISTORY Diagnosis Date - Acute respiratory failure (HCC) 06/12/2018 - Colitis 04/13/2018 - Elevated prostate specific antigen (PSA) 06/27/2007 - Esophageal reflux Gastroesophageal reflux - FAMILY HISTORY OF PROSTATE MALIGNANCY 01/22/2007 - GERD with esophagitis 05/16/2017 - Glaucoma [facility] - Malignant neoplasm of kidney (HCC) 05/29/2018 - Non-ST elevation (NSTEMI) myocardial infarction (HCC) 07/02/2018 type II from hemorrhagic shock - Other acute kidney failure (HCC) 06/12/2018 - Postoperative anemia due to acute blood loss 07/05/2018 - Renal mass, left 04/13/2018 PAST SURGICAL HISTORY Procedure Laterality Date - COLONOSCOP W/ OR W/O BRSH SPEC 2002 Colonoscopy - COLONOSCOP W/ OR W/O BRSH SPEC 04/01/07 - EGD W/O BRSH SPECIMEN W/BX 04/01/07 - EGD W/O OR W/BRUSH/WASH 2002 EGD - EXPLORATORY LAPAROTOMY, CELIOTOMY-SP 05/29/2018 completion left nephrectomy. - FINGER AMPUTATION (SPECIFY DIGIT) HX Right 1968 right 2nd and 3rd fingertips, traumatic - INGUINAL HERNIA REPAIR HX 1976 Cebul Sr. - LAPAROSC PARTIAL NEPHRECTOMY Left 05/29/2018 postop bleeding. - REPAIR UMBILICAL SAMARA,5+Y/O,REDUC 10/08/1989 Cebul, mesh - TONSILLECTOMY HX 1955 FAMILY HISTORY Problem Relation Age of Onset - Prostate Cancer Father - Cancer Mother pnacreatic ca. Social History Marital status: Single Spouse name: Years of education: Number of children: Social History Main Topics Smoking status: Former Smoker Packs/day: 0.00 Years: 0.00 Types: Cigars Quit date: 04/13/2018 Smokeless tobacco: Never Used Comment: a couple a day Alcohol use: Yes Drug use: No Social History Narrative Retired RN. Travels, volunteers abroad. since , 2 adult children. Son and brother in [place]. Motorcycles. ALLERGIES No Known Allergies Current Outpatient Prescriptions: acetaminophen-codeine (TYLENOL-COD #3) 300-30 mg per tablet Take 1 tablet by mouth every 6 hours as needed. timolol (TIMOPTIC-XE) 0.5 % ophthalmic gel-forming Use 1 Drop in both eyes twice daily. brimonidine (ALPHAGAN) 0.2 % ophthalmic solution Use 1 Drop in both eyes every 12 hours. latanoprost (XALATAN) 0.005 % ophthalmic solution once daily. No current facility-administered medications for this visit. Review of Systems Constitutional: Negative. HENT: Negative. Eyes: Negative. Respiratory: Negative. Cardiovascular: Negative. Gastrointestinal: Negative. Genitourinary: Negative. Musculoskeletal: Negative. Skin: Negative. Neurological: Negative. Objective BP 104/62 (BP Site: Left Arm, BP Position: Sitting, BP Cuff Size: Large Adult) Pulse (!) 52 Temp (!) 35.6 ?C (96 ?F) (Left Tympanic) Resp 18 Ht 176 cm (5' 9.29) Wt 78.9 kg (174 lb) BMI 25.48 kg/m? Physical Exam Constitutional: He is oriented to person, place, and time. He appears well-developed and well-nourished. HENT: Head: Normocephalic. Nose: Nose normal. Mouth/Throat: Oropharynx is clear and moist. Eyes: Pupils are equal, round, and reactive to light. Conjunctivae and EOM are normal. Neck: No JVD present. Carotid bruit is not present. Cardiovascular: Regular rhythm and normal heart sounds. Exam reveals no gallop. No murmur heard. Pulmonary/Chest: Breath sounds normal. He has no wheezes. He has no rales. Abdominal: Soft. He exhibits no mass. There is no tenderness. There is no guarding. Musculoskeletal: Normal range of motion. He exhibits no edema, tenderness or deformity. Lymphadenopathy: He has no cervical adenopathy. Neurological: He is alert and oriented to person, place, and time. No sensory deficit. Coordination normal. Skin: No rash noted. Assessment and Plan 1. Malignant neoplasm of left kidney (HCC) - ICD9: 189.0, ICD10: C64.2 (primary diagnosis) Follow up with Dr. Khan. No other referrals for chemotherapy or radiation were made. 2. Need for vaccination - ICD9: V05.9, ICD10: Z23 - INFLUENZA SEASONAL HIGH DOSE AGE 65+ 3. GERD with esophagitis - ICD9: 530.11, ICD10: K21.0 Controlled. 4. Primary open angle glaucoma (POAG) of both eyes, indeterminate stage - ICD9: 365.11, 365.74, ICD10: H40.1134 Chronic. 5. Chronic low back pain without sciatica, unspecified back pain laterality - ICD9: 724.2, 338.29, ICD10: M54.5, G89.29 Stable. 6. Non-ST elevation (NSTEMI) myocardial infarction (HCC) - ICD9: 410.70, ICD10: I21.4 Discussed. EKG today normal. - ECG COMPLETE W INTERPRETATION - LIPID PANEL BASIC 7. Other acute kidney failure (HCC) - ICD9: 584.8, ICD10: N17.8 Recheck. - COMP METABOLIC PANEL 8. Postoperative anemia due to acute blood loss - ICD9: 285.1, ICD10: D62 Recheck. - CBC 9. Elevated prostate specific antigen (PSA) - ICD9: 790.93, ICD10: R97.[address] Khan. 10. Need for hepatitis C screening test - ICD9: V73.89, ICD10: Z11.59 - HEP C AB IA W/CONF SCRN 11. Screening for AAA (aortic abdominal aneurysm) - ICD9: V81.2, ICD10: Z13.6 CT scans completed and ongoing. 12. Colitis - ICD9: 558.9, ICD10: K52.9 Asymptomatic. Review follow up next visit. Kenton Sánchez MD PROGRESS Observed: 07/05/2018 Status: COMPLETED Source: [place] 11:26 AM [facility] REPOSITORY O ID: [id number] Author: Supriya Kunz LPN Service: (none) Author Type: (none) Type: Progress Notes Filed: 07/09/2018 12:52 PM Note Text: 68 year old male here for INACTIVATED INFLUENZA VACCINE. 1251-2786 Season Patient is identified by name and date of : Yes [] CONTRAINDICATIONS color enhanced section Age less than 6 months? No Allergy to eggs, chicken, chicken feathers, or chicken dander? No Allergy to thimerosal (a preservative) or formaldehyde, gelatin? No History of severe reaction to any vaccine component or a previous dose of influenza vaccination? No History of Guillain-[place] Syndrome within 6 weeks after a previous influenza vaccine? No Patient is not moderately or severely ill? No Current temperature greater or equal to 100.4F? No History of Bone Marrow Transplant prior 6 months or solid organ transplant in the past 3 months ? No History of fainting after a prior injection or medical procedure? No- ? If patient has fainted in the past, the CDC recommends sitting or lying down for 15 minutes after the vaccination. [] VERIFICATION color enhanced section Was the answer Yes for any of the above contraindications? No contraindications present. Acceptable to proceed with vaccine. Patient/guardian agrees the above answers are true to the best of their knowledge? Yes Flu vaccine information sheet given? Yes See immunization activity in [facility] for details of immunizations adminstered today. Patient age: [age] year old For The 1941-1317 Flu Season 6-35 months old: Fluzone 0.25 ml - IM (Preservative Free) 3 years of age: Fluzone 0.5 ml - IM (Preservative Free) 3 years and older: Fluzone 0.5 ml- IM-(with Preservatives) 65+ years old: 2-49 years old Fluzone High-Dose 0.5 ml - IM (Preservative Free) FLUMIST- intranasal REMEMBER: If patient is less than 9 years of age and this is the first vaccine of Influenza to be received in any flu season, they should receive a second dose in one months time. CNOV Observed: 07/05/2018 Status: COMPLETED Source: [place] 11:20 AM [facility] REPOSITORY Office Visit (INTMWS) HEATHER ESTRADA ([id number]) 1950 M Date Time Provider Department 07/05/18 11:20 AM KENTON SÁNCHEZ INTMWS During your visit today, we recorded the following information about you: Temperature Pulse Respiration Blood pressure 96 degrees 52/minute 18/minute 104/62 Weight Height 78.9 kg 1.76 m Supriya Kunz [place] 07/09/2018 12:52 PM Signed 68 year old male here for INACTIVATED INFLUENZA VACCINE. Season Patient is identified by name and date of : Yes [] CONTRAINDICATIONS color enhanced section Age less than 6 months? No Allergy to eggs, chicken, chicken feathers, or chicken dander? No Allergy to thimerosal (a preservative) or formaldehyde, gelatin? No History of severe reaction to any vaccine component or a previous dose of influenza vaccination? No History of Guillain-[place] Syndrome within 6 weeks after a previous influenza vaccine? No Patient is not moderately or severely ill? No Current temperature greater or equal to 100.4F? No History of Bone Marrow Transplant prior 6 months or solid organ transplant in the past 3 months ? No History of fainting after a prior injection or medical procedure? No- ? If patient has fainted in the past, the CDC recommends sitting or lying down for 15 minutes after the vaccination. [] VERIFICATION color enhanced section Was the answer Yes for any of the above contraindications? No contraindications present. Acceptable to proceed with vaccine. Patient/guardian agrees the above answers are true to the best of their knowledge? Yes Flu vaccine information sheet given? Yes See immunization activity in [facility] for details of immunizations adminstered today. Patient age: [age] year old For The 8293-5114 Flu Season 6-35 months old: Fluzone 0.25 ml - IM (Preservative Free) 3 years of age: Fluzone 0.5 ml - IM (Preservative Free) 3 years and older: Fluzone 0.5 ml- IM-(with Preservatives) 65+ years old: 2-49 years old Fluzone High-Dose 0.5 ml - IM (Preservative Free) FLUMIST- intranasal REMEMBER: If patient is less than 9 years of age and this is the first vaccine of Influenza to be received in any flu season, they should receive a second dose in one months time. Kenton Sánchez MD 07/09/2018 12:52 PM Signed This note was created using NoteWriter. Subjective Patient presents with: Imm/Inj: Flu Vaccine Establish Care Heather Etsrada was here for above. He developed abdominal pain April 12 while in [place], and was treated for colitis with Flagyl. Left renal mass was found. He was referred to Dr. Khan who planned a partial left sided nephrectomy. He was admitted 05/29 and robotic assisted left partial nephrectomy was done. Postoperative course was complicated by hemorrhagic shock, respiratory failure, acute kidney injury, and non STEMI. He was taken back to the OR for exploratory laparotomy and completion nephrectomy. Cardiac work up was negative. Postoperatively, he did well at the ICU, and discharged 06/03. PAST MEDICAL HISTORY Diagnosis Date - Acute respiratory failure (HCC) 06/12/2018 - Colitis 04/13/2018 - Elevated prostate specific antigen (PSA) 06/27/2007 - Esophageal reflux Gastroesophageal reflux - FAMILY HISTORY OF PROSTATE MALIGNANCY 01/22/2007 - GERD with esophagitis 05/16/2017 - Glaucoma [place] - Malignant neoplasm of kidney (HCC) 05/29/2018 - Non-ST elevation (NSTEMI) myocardial infarction (HCC) 07/02/2018 type II from hemorrhagic shock - Other acute kidney failure (HCC) 06/12/2018 - Postoperative anemia due to acute blood loss 07/05/2018 - Renal mass, left 04/13/2018 PAST SURGICAL HISTORY Procedure Laterality Date - COLONOSCOP W/ OR W/O BRSH SPEC 2002 Colonoscopy - COLONOSCOP W/ OR W/O BRSH SPEC 04/01/07 - EGD W/O BRSH SPECIMEN W/BX 04/01/07 - EGD W/O OR W/BRUSH/WASH 2002 EGD - EXPLORATORY LAPAROTOMY, CELIOTOMY-SP 05/29/2018 completion left nephrectomy. - FINGER AMPUTATION (SPECIFY DIGIT) HX Right 1968 right 2nd and 3rd fingertips, traumatic - INGUINAL HERNIA REPAIR HX [facility] - LAPAROSC PARTIAL NEPHRECTOMY Left 05/29/2018 postop bleeding. - REPAIR UMBILICAL SAMARA,5+Y/O,REDUC 10/08/1989 [place], mesh - TONSILLECTOMY HX 1956 FAMILY HISTORY Problem Relation Age of Onset - Prostate Cancer Father - Cancer Mother pnacreatic ca. Social History Marital status: Single Spouse name: Years of education: Number of children: Social History Main Topics Smoking status: Former Smoker Packs/day: 0.00 Years: 0.00 Types: Cigars Quit date: 04/13/2018 Smokeless tobacco: Never Used Comment: a couple a day Alcohol use: Yes Drug use: No Social History Narrative Retired RN. Travels, volunteers abroad. since , 2 adult children. Son and brother in [place]. Motorcycles. ALLERGIES No Known Allergies Current Outpatient Prescriptions: acetaminophen-codeine (TYLENOL-COD #3) 300-30 mg per tablet Take 1 tablet by mouth every 6 hours as needed. timolol (TIMOPTIC-XE) 0.5 % ophthalmic gel-forming Use 1 Drop in both eyes twice daily. brimonidine (ALPHAGAN) 0.2 % ophthalmic solution Use 1 Drop in both eyes every 12 hours. latanoprost (XALATAN) 0.005 % ophthalmic solution once daily. No current facility-administered medications for this visit. Review of Systems Constitutional: Negative. HENT: Negative. Eyes: Negative. Respiratory: Negative. Cardiovascular: Negative. Gastrointestinal: Negative. Genitourinary: Negative. Musculoskeletal: Negative. Skin: Negative. Neurological: Negative. Objective BP 104/62 (BP Site: Left Arm, BP Position: Sitting, BP Cuff Size: Large Adult) Pulse (!) 52 Temp (!) 35.6 ?C (96 ?F) (Left Tympanic) Resp 18 Ht 176 cm (5' 9.29) Wt 78.9 kg (174 lb) BMI 25.48 kg/m? Physical Exam Constitutional: He is oriented to person, place, and time. He appears well-developed and well-nourished. HENT: Head: Normocephalic. Nose: Nose normal. Mouth/Throat: Oropharynx is clear and moist. Eyes: Pupils are equal, round, and reactive to light. Conjunctivae and EOM are normal. Neck: No JVD present. Carotid bruit is not present. Cardiovascular: Regular rhythm and normal heart sounds. Exam reveals no gallop. No murmur heard. Pulmonary/Chest: Breath sounds normal. He has no wheezes. He has no rales. Abdominal: Soft. He exhibits no mass. There is no tenderness. There is no guarding. Musculoskeletal: Normal range of motion. He exhibits no edema, tenderness or deformity. Lymphadenopathy: He has no cervical adenopathy. Neurological: He is alert and oriented to person, place, and time. No sensory deficit. Coordination normal. Skin: No rash noted. Assessment and Plan 1. Malignant neoplasm of left kidney (HCC) - ICD9: 189.0, ICD10: C64.2 (primary diagnosis) Follow up with Dr. Khan. No other referrals for chemotherapy or radiation were made. 2. Need for vaccination - ICD9: V05.9, ICD10: Z23 - INFLUENZA SEASONAL HIGH DOSE AGE 65+ 3. GERD with esophagitis - ICD9: 530.11, ICD10: K21.0 Controlled. 4. Primary open angle glaucoma (POAG) of both eyes, indeterminate stage - ICD9: 365.11, 365.74, ICD10: H40.1134 Chronic. 5. Chronic low back pain without sciatica, unspecified back pain laterality - ICD9: 724.2, 338.29, ICD10: M54.5, G89.29 Stable. 6. Non-ST elevation (NSTEMI) myocardial infarction (HCC) - ICD9: 410.70, ICD10: I21.4 Discussed. EKG today normal. - ECG COMPLETE W INTERPRETATION - LIPID PANEL BASIC 7. Other acute kidney failure (HCC) - ICD9: 584.8, ICD10: N17.8 Recheck. - COMP METABOLIC PANEL 8. Postoperative anemia due to acute blood loss - ICD9: 285.1, ICD10: D62 Recheck. - CBC 9. Elevated prostate specific antigen (PSA) - ICD9: 790.93, ICD10: R97.[address] Khan. 10. Need for hepatitis C screening test - ICD9: V73.89, ICD10: Z11.59 - HEP C AB IA W/CONF SCRN 11. Screening for AAA (aortic abdominal aneurysm) - ICD9: V81.2, ICD10: Z13.6 CT scans completed and ongoing. 12. Colitis - ICD9: 558.9, ICD10: K52.9 Asymptomatic. Review follow up next visit. MD Kenton Clayton MD 07/05/2018 12:43 PM Signed Recombinant shingles vaccine (Shingrix) is recommended; 2 doses 2-6 months apart. Please read information, check with your insurance, and call to schedule vaccination. You may also be directed to your local pharmacy. Referring Provider: SELF [[id number]] Allergies As of Date: 07/05/2018 (No Known Allergies) Date Reviewed: 07/05/2018 Reviewed by: Supriya Kunz LPN - Fully Assessed Reason for Visit: Imm/Inj [58] Cmt: Flu Vaccine Establish Care [42] Reason For Visit History Recorded Primary Visit Diagnosis:Malignant neoplasm of left kidney (HCC) [C64.2] Other Visit Diagnoses:Need for vaccination [Z23] GERD with esophagitis [K21.0] Primary open angle glaucoma (POAG) of both eyes, indeterminate stage [H40.1134] Chronic low back pain without sciatica, unspecified back pain laterality [M54.5, G89.29] Non-ST elevation (NSTEMI) myocardial infarction (HCC) [I21.4] Other acute kidney failure (HCC) [N17.8] Postoperative anemia due to acute blood loss [D62] Elevated prostate specific antigen (PSA) [R97.20] Need for hepatitis C screening test [Z11.59] Screening for AAA (aortic abdominal aneurysm) [Z13.6] Colitis [K52.9] Order(s):INFLUENZA SEASONAL HIGH DOSE AGE 65+ [13400URC] Order #: [id number] ECG COMPLETE W INTERPRETATION [ECG01] Order #: [id number] FUTURE CBC [SQCBC] Order #: [id number] FUTURE COMP METABOLIC PANEL [SQCMP] Order #: [id number] FUTURE LIPID PANEL BASIC [SQLIPB] Order #: [id number] FUTURE HEP C AB IA W/CONF SCRN [DHBEIM4T] Order #: [id number] FUTURE Prescriptions as of 07/05/2018 Sig: ACETAMINOPHEN 300 MG-CODEINE * Take 1 tablet by mouth every * TIMOLOL MALEATE 0.5 % EYE GEL* Use 1 Drop in both eyes twice* BRIMONIDINE 0.2 % EYE DROPS Use 1 Drop in both eyes every* LATANOPROST 0.005 % EYE DROPS once daily. Problem List As Of Date 07/05/2018 Noted Resolved Unspecified glaucoma [H40.9] INVALID FOR* ESOPHAGEAL REFLUX [K21.9] INVALID FOR* FAMILY HISTORY OF PROSTATE MALIGNANCY [Z80.42] INVALID FOR* Lateral epicondylitis of elbow [M77.10] INVALID FOR*11/16/2014 UMBILICAL HERNIA W/O GANGRENE/OBSTRUCTION [K42.*INVALID FOR*11/16/2014 MELENA [K92.1] INVALID FOR*11/16/2014 ELEVATED PROSTATE SPECIFIC ANTIGEN [R97.20] INVALID FOR* Actinic Keratoses: Premalignant AK's [L57.0] INVALID FOR*11/16/2014 Irritated//Inflamed Seborrheic Keratosis [L82.0]INVALID FOR*11/16/2014 Actinic skin damage [L57.8] INVALID FOR*11/16/2014 Solar Lentigines [L81.4] INVALID FOR*11/16/2014 Other seborrheic keratosis [L82.1] INVALID FOR*11/16/2014 Melanocytic nevi of trunk [D22.5] INVALID FOR*11/16/2014 Dao angioma [D18.01] INVALID FOR*11/16/2014 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 GERD with esophagitis [K21.0] INVALID FOR*07/05/2018 Tinea of nail [B35.1] INVALID FOR*06/04/2018 Malignant neoplasm of kidney (HCC) [C64.9] INVALID FOR* Postoperative anemia due to acute blood loss [D*INVALID FOR* Non-ST elevation (NSTEMI) myocardial infarction*INVALID FOR* Acute respiratory failure (HCC) [J96.00] INVALID FOR* Other acute kidney failure (HCC) [N17.8] INVALID FOR* Chronic low back pain without sciatica [M54.5, *INVALID FOR* Other instructions from your clinician: Recombinant shingles vaccine (Shingrix) is recommended; 2 doses 2-6 months apart. Please read information, check with your insurance, and call to schedule vaccination. You may also be directed to your local pharmacy. Medications Discontinued During This Encounter mefloquine (LARIUM) 250 mg tablet 10 t* 0 12/13/2017 07/05/2018 Class: Print RX Route: ORAL Sig: Take 1 tablet by mouth once each week. Disc: Reason for discontinue is not on file. triamcinolone acetonide (KENALOG) 0.* 15 g 1 05/11/2017 07/05/2018 Route: TOPICAL Sig: Apply 1 application to affected area twice daily. Apply sparingly. Patient not taking: Reported on 07/05/2018 Disc: Reason for discontinue is not on file. terbinafine HCl (LAMISIL) 250 mg tab* 42 t* 0 07/17/2017 07/05/2018 Route: ORAL Sig: Take 1 tablet by mouth once daily. Patient not taking: Reported on 07/05/2018 Disc: Reason for discontinue is not on file. diclofenac, EC, (VOLTAREN) 75 mg EC * 30 t* 3 05/30/2017 07/05/2018 Route: ORAL Sig: Take 1 tablet by mouth twice daily. Take as needed for back pain. Take with food. Disc: Reason for discontinue is not on file. bacitracin (ANTIBIOTIC, BACITRACIN Z* 1 Tu* 0 04/03/2016 07/05/2018 Route: TOPICAL Sig: Apply 1 application to affected area twice daily. Patient not taking: Reported on 07/05/2018 Disc: Reason for discontinue is not on file. Disposition: Return in about 3 months (around 10/04/2018). Follow-up and Disposition History Recorded Encounter Status:Closed by KENTON SÁNCHEZ MD on 07/09/18 12 LEAD ELECTROCARDIOGRAM Observed: 06/04/2018 Status: F Source: [place] 3:12 PM [facility] REPOSITORY [facility] Cardiovascular Services [address] [place] [address] 12 Lead EKG 05/30/18 0853 MR#: [id number] Acct: [id number] Name: HEATHER ESTRADA Rep #: [id number] : 1950 68 From: Avtar Ibarra MD Attending Dr: Erin BROWER,Claude Cooney Status: DIS IN Ordering Dr: Thaddeus Zurita MD Date: 05/30/18 Location: [facility] Sex: M C Admitted: 05/29/18 Test Reason : Blood Pressure : / mmHG Vent. Rate : 077 BPM Atrial Rate : 077 BPM P-R Int : 152 ms QRS Dur : 070 ms QT Int : 378 ms P-R-T Axes : 062 -05 006 degrees QTc Int : 427 ms Normal sinus rhythm Normal ECG When compared with ECG of 23-MAY-2018 10:29, Vent. rate has increased BY 31 BPM Confirmed by AVTAR IBARRA MD ([id number]), supervising film or videotape editor ALBER ALMODOVAR ([id number]) on 06/04/2018 3:12:19 PM Referred By: Claude Khan Confirmed By:AVTAR IBARRA MD 06/04/18 1512 Date Avtar Ibarra MD CC: Thaddeus Zurita MD; Claude Khan MD; Kenton Sánchez MD Signed DISCHARGE SUMMARY Observed: 06/03/2018 Status: F Source: [place] 7:13 AM [facility] Medical Records Department [address] [place] [address] Discharge Summary 06/03/18 0712 MR#: [id number] Acct: [id number] Name: HEATHER ESTRADA Rep #: [id number] : 1950 68 From: Claude Khan MD PCP: Kenton Sánchez MD Status: ADM IN Y Location: [place] [address]-1 Discharge Date and Diagnosis - Problem List Patient Problems: Active and Suspected Problems Renal malignant tumor (Acute) Glaucoma (Acute) Acute blood loss as cause of postoperative anemia (Acute) Date of Admission: 05/29/18 Date of Discharge: 06/03/18 - Primary Discharge Diagnosis Active and Suspected Problems Renal malignant tumor (Acute) Glaucoma (Acute) Acute blood loss as cause of postoperative anemia (Acute) Hospital Course and Treatment Operations: - - Left radical nephrectomy Summary of Care Provided: The patient is a 68 year old male with a 5 cm hilar tumor of the left kidney he underwent a robotic assisted left partial nephrectomy and then 3 hours later developed sudden hypotension and bleeding was taken back emergently to the operating room and underwent a completion nephrectomy he was then resuscitated in the ICU for 48 hours and stabilized transfer the floor advanced to regular diet. At this point his labs are stable he is making good urine output, had a bowel movement, tolerating regular diet, ambulating, pain is under control clinically stable. Discharge Diet: No Restrictions, Light diet - advance as tolerated Discharge Activity: May not drive while taking narcotic pain medications. Additional Activity Instructions:: f you have a catheter, remove on ___. If you have any problems after catheter is removed, call [phone] and ask for your doctor to be paged. Please be aware that pain medications may cause nausea. You should typically eat light foods as you take your pain medication. Pain medication may cause constipation, if this is a problem for you, please discuss with your doctor. Call your doctor if your incision/area has: Continuous Slow Oozing, Sudden Increased Bleeding, Increased Pain/ Swelling, Increased Redness, Foul Smelling Discharge, Swelling at the incision site Call your doctor if you observe: Fever of 101 or Higher, Inability to urinate, Inability to have a bowel movement, Uncontrolled pain Suture Line Care: Avoid Pulling/Pushing, Avoid Pinching/Bending Cleanse incision/area with: Soap AND Water Home Medications: Medications to take at Discharge Brimonidine 0.15% [Alphagan P 0.15%] 1 drop EACH EYE TID 05/23/18 Latanoprost [Latanoprost] 1 drop EACH EYE DAILY 05/23/18 Timolol [Betimol] 1 drop EACH EYE DAILY 05/23/18 Docusate Sodium [Colace] 100 mg PO BID #20 cap 05/29/18 Hydrocodone/Acetaminophen [Vicodin 5-300 mg Tablet] 1 tab PO Q4H PRN PRN 5 Days #14 tab 05/29/18 Following Prescrptions Were Given to Patient: Hydrocodone/Acetaminophen [Vicodin 5-300 mg Tablet] 1 tab PO Q4H PRN PRN 5 Days #14 tab PRN Reason: Pain Docusate Sodium [Colace] 100 mg PO BID #20 cap Primary Care Physician: Kenton Sánchez MD [Primary Care Provider] - Please Follow Up With: Claude Khan MD When: please call to make an appointment. - this . Patient Instructions: Discharge Instructions for Nephrectomy Medical Necessity - Tobacco Use Smoking Status: Former smoker Meaningful Use Info Meaningful Use Diagnoses (Choose all that apply): None applicable 06/03/18712 <Electronically signed by Claude Khan MD> Date Claude Khan MD Cosigner Signature (if applicable): Date CC: Claude Khan MD; Kenton Sánchez MD Signed DISCHARGE INSTRUCTION Observed: 06/03/2018 Status: F Source: [place] 7:12 AM [facility] REPOSITORY [facility] Medical Records Department [address] [place] [address] Instructions for Home/Discharge Instructions 06/03/18709 MR#: [id number] Acct: [id number] Name: HEATHER ESTRADA Rep #: [id number] : 1950 68 From: Claude Khan MD PCP: Kenton Sánchez MD Status: ADM IN Discharge Diet: No Restrictions, Light diet - advance as tolerated Discharge Activity: May not drive while taking narcotic pain medications. Additional Activity Instructions:: f you have a catheter, remove on ___. If you have any problems after catheter is removed, call [phone] and ask for your doctor to be paged. Please be aware that pain medications may cause nausea. You should typically eat light foods as you take your pain medication. Pain medication may cause constipation, if this is a problem for you, please discuss with your doctor. Call your doctor if your incision/area has: Continuous Slow Oozing, Sudden Increased Bleeding, Increased Pain/ Swelling, Increased Redness, Foul Smelling Discharge, Swelling at the incision site Call your doctor if you observe: Fever of 101 or Higher, Inability to urinate, Inability to have a bowel movement, Uncontrolled pain Suture Line Care: Avoid Pulling/Pushing, Avoid Pinching/Bending Cleanse incision/area with: Soap AND Water Instructions: Discharge Instructions for Nephrectomy Allergies/Adverse Reactions: Allergies No Known Allergies Allergy (Verified 05/29/18 12:11) Medications to take at Discharge Brimonidine 0.15% [Alphagan P 0.15%] 1 drop EACH EYE TID 05/23/18 Latanoprost [Latanoprost] 1 drop EACH EYE DAILY 05/23/18 Timolol [Betimol] 1 drop EACH EYE DAILY 05/23/18 Docusate Sodium [Colace] 100 mg PO BID #20 cap 05/29/18 Hydrocodone/Acetaminophen [Vicodin 5-300 mg Tablet] 1 tab PO Q4H PRN PRN 5 Days #14 tab 05/29/18 The following prescriptions were given: Hydrocodone/Acetaminophen [Vicodin 5-300 mg Tablet] 1 tab PO Q4H PRN PRN 5 Days #14 tab PRN Reason: Pain Docusate Sodium [Colace] 100 mg PO BID #20 cap Primary Care Physician: Kenton Sánchez MD [Primary Care Provider] - Test Results: Test results from this visit will be discussed in further detail at your follow-up appointment, if applicable. Please Follow Up With: Claude Khan MD When: please call to make an appointment. - this . 06/03/1812 <Electronically signed by Claude Khan MD> Date Claude Khan MD CC: Thaddeus Zurita MD; Kenton Sánchez MD BASIC METABOLIC Collected: 06/02/2018 Status: F Source: AJIT PROFILE (BMP) 5:25 AM [facility] [place] REPOSITORY Order Comment: SPECIMEN OBTAINED FROM LINE DRAW TYPE CODE TESTS RESULT OUT OF RANGE REFERENCE UNITS LAB L501.0100 74-106 mg/dL Normal GLU 103 Result Comment: Fasting Glucose result from 100 to 125 mg/dL suggests IMPAIRED HOMEOSTASIS per A.D.A. criteria. Please note revised GLUCOSE reference range effective 2017. LAB L501.1000 7-18 mg/dL Normal BUN 13 LAB L501.1100 0.70-1.30 mg/dL High CREAT,SERUM 1.39 Result Comment: The validity of the calculated GFR AND GFRAA in patients over 70 years has not been determined. Clinical correlation is essential. LAB L501.1110 >60 mL/min Low EST GFR 54 Result Comment: Non- GFR Calc LAB L501.1115 >60 mL/min Normal EST GFR - AA 65 Result Comment: GFR Calc LAB L501.1255 ml/min Normal Estimated CRCL 52.52 LAB L501.1300 10-20 RATIO Low BUN/CRE 9.4 LAB L501.2200 8.5-10 mg/dL Low .1 CA 8.3 LAB L501.5300 136-14 mmol/L Normal 5 NA 143 LAB L501.5600 3.5-5. mmol/L Normal 1 K 3.8 LAB L501.5900 98-107 mmol/L High CL 108 LAB L501.6100 21.0-3 mmol/L Normal 2.0 CO2 27.0 LAB L501.6200 5-15 Normal GAP 8 Performed By: #### L500.2500, L100.0500 #### [facility] [address] [place], [place], [address] CBC-COMPLETE BLOOD CNT Collected: 06/02/2018 Status: F Source: [place] NO DIFF 5:25 AM [facility] [place] REPOSITORY Order Comment: SPECIMEN OBTAINED FROM LINE DRAW TYPE CODE TESTS RESULT OUT OF RANGE REFERENCE UNITS LAB L100.1000 4.4-11.0 K/mm3 Normal WBC 7.4 LAB L100.1200 4.6-6.2 M/mm3 Low RBC 2.71 LAB L100.1300 13.0-16.5 g/dl Low HGB 8.6 LAB L100.1400 40-54 % Low HCT 25.7 LAB L100.1500 80-94 fL High MCV 94.8 LAB L100.1600 27.0-32.0 pg Normal MCH 31.7 LAB L100.1700 32-36 g/gl Normal MCHC 33.5 LAB L100.1810 11.6-14.6 % Normal RDW CV 13.9 LAB L100.1820 35.1-43.9 fl High RDW SD 45.2 LAB L100.1900 150-450 K/mm3 Low PLT 106 LAB L100.2000 6.2-12.0 fl Normal MPV 9.6 Performed By: #### L500.2500, L100.0500 #### [facility] [place], [address] CBC W/DIFF, AUTOMATED Collected: 06/01/2018 Status: F Source: AJIT 4:30 AM [facility] [place] REPOSITORY TYPE CODE TESTS RESULT OUT OF RANGE REFERENCE UNITS LAB L100.1000 4.4-11.0 K/mm3 Normal WBC 8.6 LAB L100.1200 4.6-6.2 M/mm3 Low RBC 2.59 LAB L100.1300 13.0-16.5 g/dl Low HGB 8.0 LAB L100.1400 40-54 % Low HCT 24.1 LAB L100.1500 80-94 fL Normal MCV 93.1 LAB L100.1600 27.0-32.0 pg Normal MCH 30.9 LAB L100.1700 32-36 g/gl Normal MCHC 33.2 LAB L100.1810 11.6-14.6 % Normal RDW CV 14.5 LAB L100.1820 35.1-43.9 fl High RDW SD 48.4 LAB L100.1900 150-450 K/mm3 Low PLT 70 LAB L100.2000 6.2-12.0 fl Normal MPV 9.6 LAB L100.2100 47-70 % Normal NEUT% 61.0 LAB L100.2200 19-41 % Normal LY% 27.5 LAB L100.2300 0-10 % High MONO% 10.2 LAB L100.2400 0-5 % Normal EO% 1.2 LAB L100.2500 0-1 % Normal BASO% 0.0 LAB L100.2550 0.0-0.9 % Normal IM GRAN % 0.100 Result Comment: IG% - Immature Granulocytes (promyelocytes, myelocytes and metamyelocytes) > 1% indicates that a LEFT SHIFT is Present. LAB L100.2620 2.0-7.7 X10 3/uL Normal Absolute Neut 5.3 LAB L100.2720 0.83-4.51 X10 3/ul Normal Absolute Lymph 2.37 Performed By: #### L100.0100, L500.2500 #### [facility] [address] [place], [address] BASIC METABOLIC Collected: 06/01/2018 Status: F Source: AJIT PROFILE (BMP) 4:30 AM [facility] [place] REPOSITORY TYPE CODE TESTS RESULT OUT OF RANGE REFERENCE UNITS LAB L501.0100 74-106 mg/dL Normal GLU 93 Result Comment: Please note revised GLUCOSE reference range effective 2017. LAB L501.1000 7-18 mg/dL Normal BUN 16 LAB L501.1100 0.70-1.30 mg/dL High CREAT,SERUM 1.34 Result Comment: The validity of the calculated GFR AND GFRAA in patients over 70 years has not been determined. Clinical correlation is essential. LAB L501.1110 >60 mL/min Low EST GFR 56 Result Comment: Non- GFR Calc LAB L501.1115 >60 mL/min Normal EST GFR - AA 68 Result Comment: GFR Calc LAB L501.1255 ml/min Normal Estimated CRCL 54.48 LAB L501.1300 10-20 RATIO Normal BUN/CRE 11.9 LAB L501.2200 8.5-10 mg/dL Low .1 CA 7.6 LAB L501.5300 136-14 mmol/L Normal 5 NA 145 LAB L501.5600 3.5-5. mmol/L Normal 1 K 3.8 LAB L501.5900 98-107 mmol/L High CL 110 LAB L501.6100 21.0-3 mmol/L Normal 2.0 CO2 25.0 LAB L501.6200 5-15 Normal GAP 10 Performed By: #### L100.0100, L500.2500 #### [facility] [address] [place], [address] HH, HEMOGLOBIN AND Collected: 05/31/2018 Status: F Source: AJIT HEMATOCRIT 5:15 PM [facility] [place] REPOSITORY TYPE CODE TESTS RESULT OUT OF RANGE REFERENCE UNITS LAB L100.1300 13.0-16.5 g/dl Low HGB 8.7 LAB L100.1400 40-54 % Low HCT 26.1 Performed By: #### L100.0600 #### [facility] [address] [place], [address] ECHO, COMPLETE W/ Observed: 05/31/2018 Status: F Source: [place] CONTRAST 1:34 PM [facility] [place] REPOSITORY [facility] Cardiovascular Services [address] [place] [address] Echo Complete 05/31/18 0953 MR#: [id number] Acct: [id number] Name: HEATHER ESTRADA Rep #: [id number] : 1950 68 From: Kannan Hassan MD Attending Dr: Erin BROWER,Claude Cooney Status: ADM IN Ordering Dr: Thaddeus Zurita MD Date: 05/31/18 Location: ICU Sex: M C Admitted: 05/29/18 Reason For Study: Chest Pain Procedure This was a 2D Doppler, Color Flow transthoracic echocardiogram. Exam performed portable in ICU/CCU. Left Ventricle Normal size and thickness. The estimated ejection fraction is 65 %. Stage 1 diastolic dysfunction. No regional wall motion abnormalities noted. Right Ventricle Normal size and thickness. Normal systolic function. Atria Normal left atrium. Normal right atrium. Normal atrial septum. Mitral Valve Mild diffuse mitral valve thickening. Trivial mitral valve insufficiency. Tricuspid Valve Normal tricuspid valve. Trivial tricuspid valve insufficiency. Right ventricular systolic pressure estimated to be 39 mmHg. Mild pulmonary hypertension. Aortic Valve Trisinus/trileaflet aortic valve. Mild focal aortic valve thickening. Mild-Moderate (1-2+) aortic valve insufficiency. Pulmonic Valve Normal pulmonic valve. Trivial pulmonic valve insufficiency. Great Vessels Normal aortic root. Normal arch. Normal inferior vena cava. Inferior vena cava collapse with sniff. Pericardium/Pleural No pericardial effusion. MMode/2D Measurements AND Calculations LVIDd: 4.9 cm IVSd: 0.84 cm Ao root diam: 3.1 cm LVIDs: 2.8 cm LVPWd: 0.82 cm LA dimension: 3.1 cm RVDd: 4.5 cm FS: 43.9 % LAV(MOD-bp): 32.1 ml EDV(MOD-sp4): 87.7 ml SV(MOD-sp4): 57.0 ml LAV(MOD-bp) Indexed: 15.5 ml/m2 ESV(MOD-sp4): 30.7 ml LAV(MOD-sp2): 35.4 ml EF(MOD-sp4): 65.0 % LAV(MOD-sp4): 27.1 ml LA A4 area: 12.8 cm2 RA A4 area: 13.3 cm2 Doppler Measurements AND Calculations MV E max juancho: 85.6 cm/sec Lat Peak E' Juacnho: 9.9 cm/sec Med Peak E' Juancho: 9.6 cm/sec MV A max juancho: 104.4 cm/sec E/E' lat: 8.7 E/E' med: 8.9 MV E/A: 0.82 Ao V2 max: 193.8 cm/sec AI max juancho: 382.4 cm/sec LV V1 max: 143.6 cm/sec Ao max P.0 mmHg AI max P.5 mmHg LV V1 max P.3 mmHg Ao V2 mean: 131.8 cm/sec AI dec slope: 217.9 cm/sec2 Ao mean P.8 mmHg AI P1/2t: 514.0 msec Ao V2 VTI: 35.7 cm PA V2 max: 122.3 cm/sec TR max juancho: 291.2 cm/sec TR max P.9 mmHg Interpretation Summary The estimated ejection fraction is 65 %. Stage 1 diastolic dysfunction. Trivial tricuspid valve insufficiency. Right ventricular systolic pressure estimated to be 39 mmHg. Mild pulmonary hypertension. Mild-Moderate (1-2+) aortic valve insufficiency. There is no comparison study available. Ordering Physician: Thaddeus Zurita Referring Physician: Kenton Moran Performed By: Mary Rivera, ALEJANDRO, RVT 05/31/18 1333 Date Kannan Hassan MD CC: Thaddeus Zurita MD; Claude Khan MD; Kenton Sánchez MD Date Dictated: 05/31/18 0953 Date Transcribed: 05/31/18 1333 Childcare Administrator: Signed CONSULTATION Observed: 05/31/2018 Status: F Source: AJIT 5:36 AM [facility] [place] REPOSITORY [facility] Medical Records Department [address] [place] [address] Consultation 05/30/18 1003 MR#: [id number] Acct: [id number] Name: HEATHER ESTRADA Rep #: [id number] : 1950 68 From: Thaddeus Zurita MD PCP: Kenton Sánchez MD Status: ADM IN Y Location: ICU ICU05-1 Problem List (1) Renal malignant tumor Status: Acute Qualifiers: Laterality: left Qualified Code(s): C64.2 - Malignant neoplasm of left kidney, except renal pelvis (2) Glaucoma Status: Acute (3) Acute blood loss as cause of postoperative anemia Status: Acute Reason for Consult Date of Consultation: 05/30/18 Reason for Consultation: Respiratory failure History of Present Illness: The patient is a 68 year old M, with past medical history listed below, who presented to [facility] on 05/29/2018 secondary to an elective partial nephrectomy secondary to probable renal cancer. Patient went through initial surgical procedure without complication. However, throughout the day, patient had reported increasing pain and decreasing blood pressure. Patient was also noted to be diaphoretic and was taken back for an emergency exploratory procedure. Upon reexploration, patient had to be converted to a full nephrectomy. Patient had an estimated 3-4 L of blood loss throughout the situation. Patient received 4 units of packed red blood cells, 1 unit of FFP and had to be initiated on Levophed therapy secondary to hypotension. Patient was transferred to the intensive care unit overnight intubated on pressor therapy. However, patient was able to qualify for a spontaneous breathing trial this morning. Patient was able to tolerate 1 hour and ABG at the end showed improved metabolic acidosis. Patient was successfully liberated from the ventilator without difficulty. Patient has been able to be weaned on Levophed therapy to off. Patient does report some pain in the area of surgical evaluation. Patient denies any passing of gas, but states I feel some grumbling. Patient reports a history of glaucoma for which she takes eyedrops. Otherwise, patient denies any medical issues. Patient states that this mass was noted in [place]. Patient does not use any assistive devices at baseline. At approximately 10 AM, patient started to complain of bilateral shoulder pain. An EKG was obtained showing no significant change compared to previous. Patient did have a troponin showing a slight elevation. This will be cycled. Patient was not started on anticoagulation secondary to recent surgery. Past Medical History Allergies No Known Allergies Allergy (Verified 05/29/18 12:11) Home Medications: Ambulatory Orders Medication Instructions Recorded Brimonidine 0.15% [Alphagan P 1 drop EACH EYE TID 05/23/18 0.15%] Latanoprost [Latanoprost] 1 drop EACH EYE DAILY 05/23/18 Timolol [Betimol] 1 drop EACH EYE DAILY 05/23/18 Surgical History: no surgical history Psychiatric History: No pertinent psych hx Smoking Status: Former smoker Alcohol: Heavy - Drinks 2 vodka drinks on a daily basis Drugs: None - *Family History Maternal History Items: No pertinent history Review of Systems Comment: See HPI, otherwise negative 10 systems Patient Problems: Active and Suspected Problems Renal malignant tumor (Acute) Glaucoma (Acute) Acute blood loss as cause of postoperative anemia (Acute) Objective: Chest x-ray was personally reviewed and shows supportive devices in appropriate positions. No infiltrate was appreciated. - Physical Exam General: Alert, Oriented x3, Cooperative, No apparent distress, - - Speaking in full sentences following extubation HEENT: Atraumatic, PERRLA, EOMI, Normocephalic, - - No scleral icterus or injection noted Oral: Moist Mucosa, No Gingival or Mucosal Lesions/ Ulcerations Neck: Supple, No JVD, No Nodes, Trachea Midline Lungs: No rhonchi, No wheeze, No rales, Diminished - Bilateral bases, - - Symmetric expansion. Some coughing with deep inhalation Cardiovascular: Regular rate, Regular Rhythm, Normal S1, Normal S2, No murmurs, No rub noted, No Gallop Abdomen: Soft, Hypoactive Bowel Sounds, Distended - Slightly, Tender - No rebound or guarding noted Extremities: No clubbing, No cyanosis, No edema, Capillary Refill Less than 3 Seconds Skin: Incision - Clean, dry and intact Musculoskeletal: No Tenderness to Palpation of Joints or Extremities, No Muscle Wasting Lymphatic: No Cervical, Supraclavicular, or Inguinal Adenopathy Neurological: Cranial nerves II-XII grossly intact, Neuro grossly intact, Motor Exam 5/5 strength throughout Psych/Mental Status: Alert and oriented to time, place, person, mood and affect Vital Signs Temp Pulse Resp BP Pulse Ox 35.6 C L 79 16 122/78 H 99 05/30/18 04:18 05/30/18 07:35 05/30/18 07:35 05/30/18 07:00 05/30/18 07:35 Oxygen Flow Rate (L/min) 2 Oxygen Delivery Method Room Air Weight: 90.5 kg Body Mass Index (BMI) 26.8 Intake and Output for Last 24 Hours Intake Total 4925 / 4925 2653.8 / 2653.8 Output Total 250 / 250 140 / 140 Balance 4675 / 4675 2513.8 / 2513.8 Laboratory Tests Past 24 Hrs WBC RBC Hgb Hct MCV MCH MCHC RDW RDW Differential Plt Count MPV Immature Gran % (Auto) WBC 12.3 H WBC 12.4 H RBC 2.75 L Hgb 8.8 L Hct 26.2 L MCV 95.3 H MCH 32.0 WBC RBC Hgb Hct MCV MCH MCHC RDW RDW Differential WBC 13.5 H RBC 3.67 L WBC RBC Hgb Hct MCV MCH MCHC RDW RDW Differential Plt Count MPV Clinical Impression(s) from Imaging Studies Chest X-Ray 05/23/18 11:21 IMPRESSION: Chronic interstitial changes, no superimposed acute pulmonary process Electronically Signed: Zaheer Villanueva MD at 12:21 EDT , Service support , Chest X-Ray 05/30/18 01:27 IMPRESSION: Endotracheal tube tip is 5.3 cm from yeimi, in appropriate position. Electronically Signed: Cleveland Wing MD at 2:05 EDT Tel , Service support , Chest X-Ray 05/30/18 04:09 IMPRESSION: Interval placement of enteric tube, tip in the fundus of the stomach. Interval placement of left central catheter, tip in region of innominate vein. No pneumothorax. Electronically Signed: Cleveland Wing MD at 5:23 EDT Tel , Service support , KUB X-Ray 05/30/18 04:09 IMPRESSION: Normal bowel gas pattern. Postoperative changes as described. Electronically Signed: Cleveland Wing MD at 5:26 EDT Tel , Service support , Assessment/Plan Active and Suspected Problems Renal malignant tumor (Acute) Glaucoma (Acute) Acute blood loss as cause of postoperative anemia (Acute) RECOMMENDATIONS: 1. Increase activity as tolerated 2. Discontinue fentanyl and propofol drips 3. Fentanyl every 2 as needed for pain 4. Bronchodilators only if needed 5. Recheck blood counts this afternoon 6. Serial troponins IMPRESSIONS: 1. Acute respiratory failure Patient was able to be successfully liberated from the ventilator earlier today. Patient is doing well on room air at this time. Patient does have a history of smoking, but is not diagnosed with COPD. Will give bronchodilators if necessary. ABG at the end of spontaneous breathing trial showed appropriate compensation for metabolic acidosis. Encourage incentive spirometer. Increase activity as tolerated. 2. Hemorrhagic shock status post partial nephrectomy Patient has received multiple blood products at this time. Patient does not appear to be in DIC. Blood pressure is much improved at this time and pressors have been discontinued. Patient has received significant amount of fluid, but urine output continues to be somewhat marginal. Total CK is elevated. 3. Acute kidney injury Patient with an elevated creatinine following surgery. Patient is not making significant amount of urine at this time. Patient currently is on room air, so will give aggressive fluid challenges. Patient has no indication for renal replacement therapy at this time. 4. Chest pain Patient reporting shoulder/chest pain shortly after extubation. Patient has had no change in hemodynamics or oxygenation to suggest a pneumothorax. Initial troponin is somewhat elevated. Unclear if this is residual from overnight events versus a new ongoing ischemia. Will hold off on anticoagulation at this time. Continue to monitor troponins. This may be a type II non-ST elevation UT that occurred during the acute hemorrhage in the partial nephrectomy. 5. Glaucoma Complicates care, management, recovery and prognosis. TIME: 40 minutes critical care time spent addressing patient's acute respiratory failure, hemorrhagic shock, acute kidney injury, review of all data and collaboration with care team (7 AM to 9 AM) Code Visit 9xxxx: [id number] Critical care first hour 05/31/18 0536 <Electronically signed by Thaddeus Zurita MD> Date Thaddeus Zurita MD Cosigner Signature (if applicable): Date CC: Thaddeus Zurita MD; Claude Khan MD; Kenton Sánchez MD Signed CBC-COMPLETE BLOOD CNT Collected: 05/31/2018 Status: F Source: AJIT NO DIFF 4:15 AM [facility] [place] REPOSITORY TYPE CODE TESTS RESULT OUT OF RANGE REFERENCE UNITS LAB L100.1000 4.4-11.0 K/mm3 Normal WBC 8.8 LAB L100.1200 4.6-6.2 M/mm3 Low RBC 2.39 LAB L100.1300 13.0-16.5 g/dl Low HGB 7.7 LAB L100.1400 40-54 % Low HCT 22.4 LAB L100.1500 80-94 fL Normal MCV 93.7 LAB L100.1600 27.0-32.0 pg High MCH 32.2 LAB L100.1700 32-36 g/gl Normal MCHC 34.4 LAB L100.1810 11.6-14.6 % Normal RDW CV 14.5 LAB L100.1820 35.1-43.9 fl High RDW SD 47.2 LAB L100.1900 150-450 K/mm3 Low PLT 81 LAB L100.2000 6.2-12.0 fl Normal MPV 9.3 Performed By: #### L100.0500 #### [facility] [address] [place], [address] BASIC METABOLIC Collected: 05/31/2018 Status: F Source: AJIT PROFILE (BMP) 4:15 AM [facility] [place] REPOSITORY TYPE CODE TESTS RESULT OUT OF RANGE REFERENCE UNITS LAB L501.0100 74-106 mg/dL Normal GLU 106 Result Comment: Fasting Glucose result from 100 to 125 mg/dL suggests IMPAIRED HOMEOSTASIS per A.D.A. criteria. Please note revised GLUCOSE reference range effective 2017. LAB L501.1000 7-18 mg/dL High BUN 25 LAB L501.1100 0.70-1.30 mg/dL High CREAT,SERUM 1.63 Result Comment: The validity of the calculated GFR AND GFRAA in patients over 70 years has not been determined. Clinical correlation is essential. LAB L501.1110 >60 mL/min Low EST GFR 45 Result Comment: Non- GFR Calc LAB L501.1115 >60 mL/min Low EST GFR - AA 54 Result Comment: GFR Calc LAB L501.1255 ml/min Normal Estimated CRCL 44.79 LAB L501.1300 10-20 RATIO Normal BUN/CRE 15.3 LAB L501.2200 8.5-10 mg/dL Low .1 CA 7.3 LAB L501.5300 136-14 mmol/L Normal 5 NA 143 LAB L501.5600 3.5-5. mmol/L Normal 1 K 3.8 LAB L501.5900 98-107 mmol/L High CL 111 LAB L501.6100 21.0-3 mmol/L Normal 2.0 CO2 26.0 LAB L501.6200 5-15 Normal GAP 6 Performed By: #### L500.2500 #### [facility] [address] [place], [address] CHEST 1 VIEW Observed: 05/31/2018 Status: F Source: [place] (PORTABLE) 12:00 AM [facility] REPOSITORY [facility] Imaging Services [address] [place] [address] Chest 1 View (Portable) MR#: [id number] Acct: [id number] Name: HEATHER ESTRADA Rep #: [id number] : 1950 M 68 From: Trey King MD PCP: Kenton Sánchez MD Status: ADM IN Study: Chest 1 View (Portable) Date of Exam: 05/31/18 Exam# [id number] Ordering Dr: Thaddeus Zurita MD STUDY: X-RAY CHEST REASON FOR EXAM: Male, 68 years old. Chest pain and shortness of breath. TECHNIQUE: Single AP portable view of the chest. COMPARISON: Comparison is made with prior study dated May 30, 2018. FINDINGS: The endotracheal tube has been removed. EKG electrodes are seen. A left-sided subclavian line is seen with the tip at junction of the superior vena cava and brachiocephalic vein. Small left pleural effusion with underlying infiltration and/or atelectasis. Blunting of the right costophrenic angle. Normal size heart. Normal mediastinum and emerald. Normal visualized pulmonary arteries. Normal visualized aortic arch and descending thoracic aorta. There are diffuse degenerative changes of the visualized thoracic spine. Normal visualized ribs, clavicles, and shoulders. There is no demonstrated abnormality of the visualized soft tissue structures of the upper abdomen. RAD/Chest 1 View (Portable) IMPRESSION: Small left pleural effusion with underlying infiltration and/or atelectasis in the left lower lobe. Electronically Signed: Trey King MD at 9:33 EDT Tel [phone], Service support , CC: Thaddeus Zurita MD; Kenton Sánchez MD Childcare Administrator: Signed HH, HEMOGLOBIN AND Collected: 05/30/2018 Status: F Source: [place] HEMATOCRIT 9:55 PM [facility] REPOSITORY TYPE CODE TESTS RESULT OUT OF RANGE REFERENCE UNITS LAB L100.1300 13.0-16.5 g/dl Low HGB 8.4 LAB L100.1400 40-54 % Low HCT 24.6 Performed By: #### L100.0600 #### [facility] [address] [place], [address] TROPONIN-I Collected: 05/30/2018 Status: F Source: AJIT 7:20 PM [facility] REPOSITORY Order Comment: 'TROP' Serial specimen #1, #2, #3, or #4: 3 TYPE CODE TESTS RESULT OUT OF RANGE REFERENCE UNITS LAB L501.4010 <0.045 ng/mL High alert 0.991 TROPONIN-I Result Comment: Critical Result(s) Called Luke BOUCHER at: 20:13:37 05/30/2018 by: TAYLA CASSIDY TROPONIN-I EXPECTED VALUES <0.045 Negative 0.045 - 0.590 Consistent with Cardiac Damage > OR = 0.600 Critical Value Not every elevated troponin is indicative of UT. These values should be used with clinical judgement in examining the patient's clinical picture for diagnosis. To establish a diagnosis of UT versus myocardial injury, there must be a demonstrated rise and/or fall in the troponin values, in addition to ischemic symptoms, EKG changes, new regional wall motion abnormality, and/or angiographical evidence. PLEASE NOTE: REFERENCE RANGES EDITED 18 Performed By: #### L501.4010 #### [facility] [address] [place], [address] HH, HEMOGLOBIN AND Collected: 05/30/2018 Status: F Source: [place] HEMATOCRIT 4:10 PM [facility] REPOSITORY TYPE CODE TESTS RESULT OUT OF RANGE REFERENCE UNITS LAB L100.1300 13.0-16.5 g/dl Low HGB 9.2 LAB L100.1400 40-54 % Low HCT 27.1 Performed By: #### L100.0600 #### [facility] [address] [place], [address] BASIC METABOLIC Collected: 05/30/2018 Status: F Source: AJIT PROFILE (BMP) 4:10 PM [facility] REPOSITORY TYPE CODE TESTS RESULT OUT OF RANGE REFERENCE UNITS LAB L501.0100 74-106 mg/dL High GLU 117 Result Comment: Fasting Glucose result from 100 to 125 mg/dL suggests IMPAIRED HOMEOSTASIS per A.D.A. criteria. Please note revised GLUCOSE reference range effective 2017. LAB L501.1000 7-18 mg/dL High BUN 25 LAB L501.1100 0.70-1.30 mg/dL High CREAT,SERUM 1.85 Result Comment: The validity of the calculated GFR AND GFRAA in patients over 70 years has not been determined. Clinical correlation is essential. LAB L501.1110 >60 mL/min Low EST GFR 39 Result Comment: Non- GFR Calc LAB L501.1115 >60 mL/min Low EST GFR - AA 47 Result Comment: GFR Calc LAB L501.1255 ml/min Normal Estimated CRCL 39.46 LAB L501.1300 10-20 RATIO Normal BUN/CRE 13.5 LAB L501.2200 8.5-10 mg/dL Low .1 CA 7.2 LAB L501.5300 136-14 mmol/L Normal 5 NA 142 LAB L501.5600 3.5-5. mmol/L Normal 1 K 4.3 LAB L501.5900 98-107 mmol/L High CL 111 LAB L501.6100 21.0-3 mmol/L Normal 2.0 CO2 22.0 LAB L501.6200 5-15 Normal GAP 9 Performed By: #### L500.2500 #### [facility] [address] [place], [address] TROPONIN-I Collected: 05/30/2018 Status: F Source: [place] 4:10 PM [facility] [place] REPOSITORY Order Comment: 'TROP' Serial specimen #1, #2 or #3: 3 TYPE CODE TESTS RESULT OUT OF RANGE REFERENCE UNITS LAB L501.4010 <0.045 ng/mL High alert 0.978 TROPONIN-I Result Comment: Critical Result(s) Called Dustin WOODY at: 17:23:24 05/30/2018 by: TAYLA CASSIDY TROPONIN-I EXPECTED VALUES <0.045 Negative 0.045 - 0.590 Consistent with Cardiac Damage > OR = 0.600 Critical Value Not every elevated troponin is indicative of UT. These values should be used with clinical judgement in examining the patient's clinical picture for diagnosis. To establish a diagnosis of UT versus myocardial injury, there must be a demonstrated rise and/or fall in the troponin values, in addition to ischemic symptoms, EKG changes, new regional wall motion abnormality, and/or angiographical evidence. PLEASE NOTE: REFERENCE RANGES EDITED 18 Performed By: #### L501.4010 #### [facility] [address] [place], [address] TROPONIN-I Collected: 05/30/2018 Status: F Source: [place] 12:30 PM [facility] [place] REPOSITORY Order Comment: 'TROP' Serial specimen #1, #2 or #3: 2 TYPE CODE TESTS RESULT OUT OF RANGE REFERENCE UNITS LAB L501.4010 <0.045 ng/mL High alert 0.921 TROPONIN-I Result Comment: Critical Result(s) Called at: 13:15:22 05/30/2018 by: Marry Singletary TROPONIN-I EXPECTED VALUES <0.045 Negative 0.045 - 0.590 Consistent with Cardiac Damage > OR = 0.600 Critical Value Not every elevated troponin is indicative of UT. These values should be used with clinical judgement in examining the patient's clinical picture for diagnosis. To establish a diagnosis of UT versus myocardial injury, there must be a demonstrated rise and/or fall in the troponin values, in addition to ischemic symptoms, EKG changes, new regional wall motion abnormality, and/or angiographical evidence. PLEASE NOTE: REFERENCE RANGES EDITED 18 Performed By: #### L501.4010 #### [facility] [address] [place], [address] TROPONIN-I Collected: 05/30/2018 Status: F Source: [place] 9:00 AM [facility] REPOSITORY Order Comment: 'TROP' Serial specimen #1, #2 or #3: 1 TYPE CODE TESTS RESULT OUT OF RANGE REFERENCE UNITS LAB L501.4010 <0.045 ng/mL High 0.594 TROPONIN-I Result Comment: TROPONIN-I EXPECTED VALUES <0.045 Negative 0.045 - 0.590 Consistent with Cardiac Damage > OR = 0.600 Critical Value Not every elevated troponin is indicative of UT. These values should be used with clinical judgement in examining the patient's clinical picture for diagnosis. To establish a diagnosis of UT versus myocardial injury, there must be a demonstrated rise and/or fall in the troponin values, in addition to ischemic symptoms, EKG changes, new regional wall motion abnormality, and/or angiographical evidence. PLEASE NOTE: REFERENCE RANGES EDITED 18 Performed By: #### L501.4010 #### [facility] [address] [place] [address]. [place], [address] BLOOD GASES BY CPS Collected: 05/30/2018 Status: F Source: [place] 7:25 AM [facility] REPOSITORY TYPE CODE TESTS RESULT OUT OF RANGE REFERENCE UNITS LAB L9000.9990 Normal BLD GAS TYPE RANDOLPH LAB L9001.1000 Normal SITE OTHER LAB L9001.1048 Normal Mode CPAP PS LAB L9001.1050 O2 Normal Delivery Dev Vent LAB L9001.1074 Normal FI02 30 LAB L9001.1076 Normal PEEP 5 LAB L9001.1078 PS Normal 5 LAB L9001.1104 Normal Results To ICU LAB L9001.1105 Normal Time Given 724 LAB L9001.1110 7.35-7.45 pH Normal - I-STAT 7.36 LAB L9001.1210 35-45 mmHg Low pCO2 - ISTAT 33.4 LAB L9001.1310 75-100 mmHG High PO2 I-STAT 135 LAB L9001.2300 22-26 mmol/L Low HCO3 ISTAT 19.0 LAB L9001.2400 -2 to +2 mmol/L Low BE ISTAT -6 LAB L9001.2415 mmol/L Normal TOTAL CO2 20 ISTAT LAB L9001.2425 95-99 % Normal SO2 ISTAT 99 Performed By: #### L9000.0800 #### [facility] Point of Care [address] [place] [address] CBC-COMPLETE BLOOD CNT Collected: 05/30/2018 Status: F Source: [place] NO DIFF 6:30 AM [facility] REPOSITORY TYPE CODE TESTS RESULT OUT OF RANGE REFERENCE UNITS LAB L100.1000 4.4-11.0 K/mm3 High WBC 13.5 LAB L100.1200 4.6-6.2 M/mm3 Low RBC 3.67 LAB L100.1300 13.0-16.5 g/dl Low HGB 11.4 LAB L100.1400 40-54 % Low HCT 33.9 LAB L100.1500 80-94 fL Normal MCV 92.4 LAB L100.1600 27.0-32.0 pg Normal MCH 31.1 LAB L100.1700 32-36 g/gl Normal MCHC 33.6 LAB L100.1810 11.6-14.6 % Normal RDW CV 14.5 LAB L100.1820 35.1-43.9 fl High RDW SD 48.4 LAB L100.1900 150-450 K/mm3 Low PLT 107 LAB L100.2000 6.2-12.0 fl Normal MPV 10.1 Performed By: #### L100.0500 #### [facility] [address] [place], [place], [id number] BASIC METABOLIC Collected: 05/30/2018 Status: F Source: [place] PROFILE (BMP) 6:30 AM [facility] REPOSITORY TYPE CODE TESTS RESULT OUT OF RANGE REFERENCE UNITS LAB L501.0100 74-106 mg/dL High GLU 145 Result Comment: Fasting Glucose result greater than or equal to 126 mg/dL suggests DIABETES MELLITUS per A.D.A. criteria. Please note revised GLUCOSE reference range effective 2017. LAB L501.1000 7-18 mg/dL High BUN 20 LAB L501.1100 0.70-1.30 mg/dL High CREAT,SERUM 1.67 Result Comment: The validity of the calculated GFR AND GFRAA in patients over 70 years has not been determined. Clinical correlation is essential. LAB L501.1110 >60 mL/min Low EST GFR 44 Result Comment: Non- GFR Calc LAB L501.1115 >60 mL/min Low EST GFR - AA 53 Result Comment: GFR Calc LAB L501.1255 ml/min Normal Estimated CRCL 43.71 LAB L501.1300 10-20 RATIO Normal BUN/CRE 12.0 LAB L501.2200 8.5-10 mg/dL Low .1 CA 7.2 LAB L501.5300 136-14 mmol/L Normal 5 NA 143 LAB L501.5600 3.5-5. mmol/L Normal 1 K 5.0 LAB L501.5900 98-107 mmol/L High CL 112 LAB L501.6100 21.0-3 mmol/L Low 2.0 CO2 18.0 LAB L501.6200 5-15 Normal GAP 13 Performed By: #### L500.2500 #### [facility] [address] [facility] [place], [place], [id number] PROTHROMBIN TIME W/INR Collected: 05/30/2018 Status: F Source: [place] 6:30 AM [facility] [place] REPOSITORY TYPE CODE TESTS RESULT OUT OF RANGE REFERENCE UNITS LAB L300.4150 11.7-14.9 SECONDS High PROTIME 16.1 LAB L300.4200 Normal INR 1.3 Performed By: #### L300.3900, L300.4310 #### [facility] [address] [place], [place], [id number] PARTIAL THROMBOPLAST Collected: 05/30/2018 Status: F Source: [place] TIME 6:30 AM [facility] REPOSITORY TYPE CODE TESTS RESULT OUT OF RANGE REFERENCE UNITS LAB L300.4310 24.1-36.2 Seconds Normal PTT 24.3 Performed By: #### L300.3900, L300.4310 #### [facility] [address] [place], [address] M R STAPH AUREUS Collected: 05/30/2018 Status: F Source: [place] DNA BY PCR 5:45 AM [facility] REPOSITORY TYPE CODE TESTS RESULT OUT OF RANGE REFERENCE UNITS LAB L8200.1100 Negative Normal MRSA Negative RESULT Performed By: #### L8200.1000 #### [facility] [address] [place], [address] BLOOD GASES BY CPS Collected: 05/30/2018 Status: F Source: [place] 5:29 AM [facility] REPOSITORY TYPE CODE TESTS RESULT OUT OF RANGE REFERENCE UNITS LAB L9000.9990 Normal BLD GAS TYPE RANDOLPH LAB L9001.1000 Normal SITE L Radial LAB L9001.1010 Normal KIARA TEST NA LAB L9001.1048 Normal Mode A-C LAB L9001.1050 O2 Normal Delivery Dev Vent LAB L9001.1060 MV Normal 10.00 LAB L9001.1065 Vt Normal 550 LAB L9001.1070 RR Normal 14 LAB L9001.1074 Normal FI02 35 LAB L9001.1076 Normal PEEP 5 LAB L9001.1104 Normal Results To ICU LAB L9001.1105 Normal Time Given 524 LAB L9001.1110 7.35-7.45 Low pH - I-STAT 7.32 LAB L9001.1210 35-45 mmHg Low pCO2 - ISTAT 32.8 LAB L9001.1310 75-100 mmHG High PO2 I-STAT 149 LAB L9001.2300 22-26 mmol/L Low HCO3 ISTAT 17.1 LAB L9001.2400 -2 to +2 mmol/L Low BE ISTAT -9 LAB L9001.2415 mmol/L Normal TOTAL CO2 18 ISTAT LAB L9001.2425 95-99 % Normal SO2 ISTAT 99 Performed By: #### L9000.0800 #### [facility] Point of Care [address] [place], [place] [address] CXR FOR LINE PLACEMENT Observed: 05/30/2018 Status: F Source: [place] 4:10 AM [facility] [place] REPOSITORY [facility] Imaging Services [address] [place] [address] CXR for Line Placement MR#: [id number] Acct: [id number] Name: HEATHER ESTRADA Rep #: [id number] : 1950 M 68 From: Cleveland Wing MD PCP: Kenton Sánchez MD Status: ADM IN Study: CXR for Line Placement Date of Exam: 05/30/18 Exam# [id number] Ordering Dr: Leah Mcelroy MD STUDY: X-RAY CHEST REASON FOR EXAM: Male, 68 years old. Line placement TECHNIQUE: Single frontal view of the chest. COMPARISON: 05/30/2018 FINDINGS: Interval placement of enteric tube, tip in the fundus of the stomach. Interval placement of left central catheter, tip in region of innominate vein. No pneumothorax. The lungs are clear and expanded. There is no demonstrated pleural abnormality. Normal size heart. Normal mediastinum and emerald. Normal visualized pulmonary arteries. Normal visualized aortic arch and descending thoracic aorta. There are diffuse degenerative changes of the visualized thoracic spine. Normal visualized ribs, clavicles, and shoulders. There is no demonstrated abnormality of the visualized soft tissue structures of the upper abdomen. RAD/CXR for Line Placement IMPRESSION: Interval placement of enteric tube, tip in the fundus of the stomach. Interval placement of left central catheter, tip in region of innominate vein. No pneumothorax. Electronically Signed: Cleveland Wing MD at 5:23 EDT Tel , Service support , CC: Leah Mcelroy MD; Kenton Sánchez MD Childcare Administrator: Signed ABDOMEN SINGLE VIEW Observed: 05/30/2018 Status: F Source: [place] 4:10 AM [facility] [place] REPOSITORY [facility] [place] [address] Abdomen Single View MR#: [id number] Acct: [id number] Name: HEATHER ESTRADA Rep #: [id number] : 1950 M 68 From: Cleveland Wing MD PCP: Kenton Sánchez MD Status: ADM IN Study: Abdomen Single View Date of Exam: 05/30/18 Exam# [id number] Ordering Dr: Leah Mcelroy MD STUDY: X-RAY - ABDOMEN/PELVIS REASON FOR EXAM: Male, 68 years old. Abdominal distention recent surgery TECHNIQUE: Two AP supine views of the abdomen and pelvis. COMPARISON: None. FINDINGS: Normal visualized lung bases. Enteric tube tip in the fundus of the stomach. Skin elaina on the left. There is an unremarkable bowel gas pattern. Probable postoperative retroperitoneal air on the left. The visualized liver, spleen and kidneys are grossly normal in size and morphology. Normal soft tissue structures. Degenerative lumbar changes. Degenerative hip changes. Abdominal wall emphysema on the left. RAD/Abdomen Single View IMPRESSION: Normal bowel gas pattern. Postoperative changes as described. Electronically Signed: Cleveland Wing MD at 5:26 EDT Tel , Service support , CC: Leah Mcelroy MD; Kenton Sánchez MD Childcare Administrator: Signed OPERATIVE REPORT Observed: 05/30/2018 Status: F Source: [place] 1:34 AM [facility] Medical Records Department [address] [place] [address] Operative Report 05/30/18 0128 MR#: [id number] Acct: [id number] Name: HEATHER ESTRADA Rep #: [id number] : 1950 68 From: Claude Khan MD PCP: Kenton Sánchez MD Status: ADM IN Y Location: ICU [place] [address] Report of Operation Date of Procedure: 05/29/18 Pre-Operative Diagnosis: Left large renal mass Post-Operative Diagnosis: Same Surgery/Procedure Performed:: Exploratory laparotomy and completion nephrectomy, radical nephrectomy Description of Surgical Findings:: 68-year-old male who had 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 At the end of the case there was no bleeding from the nephrectomy site patient was stable was transferred to the PACU in good condition his hemoglobin and PACU was measured it was 13 blood pressure was stable was transferred to the floor I was then called later on a few hours on the floor about 2 or 2-1/2 hours after surgery and was reported to have severe hypotension CBC was done and his hemoglobin was down to 9.8 but he was hypotensive despite fluid resuscitation. Therefore spoke to the patient and recommended we taken back emergently to surgery for exploratory laparotomy and explained to the patient if can stop the bleeding from the kidney most likely will need to have her nephrectomy. 68-year-old male was taken back to the operating room in emergent fashion is placed supine on the table he underwent anesthesia and intubation by Dr. Short, the abdomen was already shaved we prepped and draped in usual sterile fashion I then went into the old camera trocar the from the prior surgery open up the stitch put my finger inside the abdomen and then opened up the abdomen through a subcostal incision cutting through the muscle layer and entering the peritoneal cavity we then packed off the bowel and immediately opened up a significant amount of bleeding in the retroperitoneum this was evacuated out and sucked off repacked out the belly we then removed the packs we went to the kidney and there was bleeding from the kidney itself it was difficult to tell exactly where the bleeding was coming from but it was very apparent that is coming from the nephrectomy partial nephrectomy site therefore since we could get this under control best option at this point was to be a completion nephrectomy the artery was already dissected out I located place a suture around the artery tied it down this immediately stopped a lot of the hemorrhage I then placed a second suture on the artery and then transected the artery we then transected 1 of the veins put a clip on it and then transected the main renal vein. I then went behind the kidney dissected the kidney off the lateral sidewall dissected inferiorly and the tail of Gerota's fascia transected through the gonadal and the ureter put clips on both of these and then dissected further up towards the splenorenal limit ligament and freed the kidney off the off its bed and then the kidney was taken out of the abdomen we then packed the retroperitoneum again we inspected and there was no bleeding this time we did place some Gelfoam in the hilum but there was no bleeding from the hilum the spleen was intact and there was no bleeding above the spleen or in the retroperitoneum anesthesia was catching up he did get some fluid he got 2 units of packed red blood cell his hemoglobin was pending at this point his blood pressure was stable but he was in critical condition so we left him intubated and is taken back to the PACU in critical but stable condition for further resuscitation we closed the abdomen with running layer of Vicryl in the first layer the second layer we closed it with #1 PDS and then closed the skin with elaina. Dr. de paz of the general surgeon assisted me with the case and assisted with the exploratory laparotomy. Type of Anesthesia:: General Drains: fabian Estimated Blood Loss (mL): 3000 - Admit VTE Documentation VTE Present on Admission: Yes VTE Mechan Device Prophylaxis: SCD's VTE Pharm Prophylaxis ordered?: No 05/30/18 0134 <Electronically signed by Claude Khan MD> Date Claude Khan MD CC: Claude Khan MD; Kenton Sánchez MD Signed BLOOD GASES BY [facility] Collected: 05/30/2018 Status: F Source: [place] 1:32 AM [facility] REPOSITORY TYPE CODE TESTS RESULT OUT OF RANGE REFERENCE UNITS LAB L9000.9990 Normal BLD GAS TYPE RANDOLPH LAB L9001.1000 Normal SITE L Radial LAB L9001.1010 Normal KIARA TEST NA LAB L9001.1048 Normal Mode A-C LAB L9001.1050 O2 Normal Delivery Dev Vent LAB L9001.1060 MV Normal 8.00 LAB L9001.1065 Vt Normal 500 LAB L9001.1070 RR Normal 14 LAB L9001.1074 Normal FI02 100 LAB L9001.1076 Normal PEEP 5 LAB L9001.1104 Normal Results To ICU LAB L9001.1105 Normal Time Given 125 LAB L9001.1110 7.35-7.45 Low pH - I-STAT 7.30 LAB L9001.1210 35-45 mmHg Normal pCO2 - ISTAT 39.6 LAB L9001.1310 75-100 mmHG High PO2 I-STAT 227 LAB L9001.2300 22-26 mmol/L Low HCO3 ISTAT 19.5 LAB L9001.2400 -2 to +2 mmol/L Low BE ISTAT -7 LAB L9001.2415 mmol/L Normal TOTAL CO2 21 ISTAT LAB L9001.2425 95-99 % High SO2 ISTAT 100 Performed By: #### L9000.0800 #### [facility] [place] [address] [address] CBC W/DIFF, AUTOMATED Collected: 05/30/2018 Status: F Source: [place] 1:30 AM [facility] REPOSITORY TYPE CODE TESTS RESULT OUT OF RANGE REFERENCE UNITS LAB L100.1000 4.4-11.0 K/mm3 High WBC 12.4 LAB L100.1200 4.6-6.2 M/mm3 Low RBC 2.75 LAB L100.1300 13.0-16.5 g/dl Low HGB 8.8 LAB L100.1400 40-54 % Low HCT 26.2 LAB L100.1500 80-94 fL High MCV 95.3 LAB L100.1600 27.0-32.0 pg Normal MCH 32.0 LAB L100.1700 32-36 g/gl Normal MCHC 33.6 LAB L100.1810 11.6-14.6 % Normal RDW CV 13.8 LAB L100.1820 35.1-43.9 fl High RDW SD 45.4 LAB L100.1900 150-450 K/mm3 Low PLT 108 LAB L100.2000 6.2-12.0 fl Normal MPV 9.3 LAB L100.2100 47-70 % High NEUT% 84.2 LAB L100.2200 19-41 % Low LY% 5.4 LAB L100.2300 0-10 % Normal MONO% 9.3 LAB L100.2400 0-5 % Normal EO% 0.2 LAB L100.2500 0-1 % Normal BASO% 0.1 LAB L100.2550 0.0-0.9 % Normal IM GRAN % 0.800 Result Comment: IG% - Immature Granulocytes (promyelocytes, myelocytes and metamyelocytes) > 1% indicates that a LEFT SHIFT is Present. LAB L100.2620 2.0-7.7 X10 3/uL High Absolute Neut 10.4 LAB L100.2720 0.83-4.51 X10 3/ul Low Absolute Lymph 0.67 Performed By: #### L100.0100 #### [facility] [address] [place], [place], [address] BASIC METABOLIC Collected: 05/30/2018 Status: F Source: [place] PROFILE (BMP) 1:30 AM [facility] REPOSITORY TYPE CODE TESTS RESULT OUT OF RANGE REFERENCE UNITS LAB L501.0100 74-106 mg/dL High GLU 165 Result Comment: Fasting Glucose result greater than or equal to 126 mg/dL suggests DIABETES MELLITUS per A.D.A. criteria. Please note revised GLUCOSE reference range effective 2017. LAB L501.1000 7-18 mg/dL Normal BUN 17 LAB L501.1100 0.70-1.30 mg/dL High CREAT,SERUM 1.37 Result Comment: The validity of the calculated GFR AND GFRAA in patients over 70 years has not been determined. Clinical correlation is essential. LAB L501.1110 >60 mL/min Low EST GFR 55 Result Comment: Non- GFR Calc LAB L501.1115 >60 mL/min Normal EST GFR - AA 66 Result Comment: GFR Calc LAB L501.1255 ml/min Normal Estimated CRCL 53.28 LAB L501.1300 10-20 RATIO Normal BUN/CRE 12.4 LAB L501.2200 8.5-10 mg/dL Low .1 CA alert 6.5 Result Comment: Critical Result(s) Called at: 01:54:06 05/30/2018 by: LOREN BROOKS to Shayla Santos LAB L501.5300 136-145 mmol/L Normal NA 143 LAB L501.5600 3.5-5.1 mmol/L High K 5.4 LAB L501.5900 98-107 mmol/L High CL 115 LAB L501.6100 21.0-32.0 mmol/L Low CO2 19.0 LAB L501.6200 5-15 Normal 9 GAP Performed By: #### L500.2500 #### [facility] [address] [place], [place], [address] CHEST 1 VIEW Observed: 05/30/2018 Status: F Source: [place] (PORTABLE) 1:30 AM [facility] REPOSITORY [facility] [place] [address] Chest 1 View (Portable) MR#: [id number] Acct: [id number] Name: HEATHER ESTRADA Rep #: [id number] : 1950 M 68 From: Cleveland Wing MD PCP: Kenton Sánchez MD Status: ADM IN Study: Chest 1 View (Portable) Date of Exam: 05/30/18 Exam# [id number] Ordering Dr: George Rodríguez MD STUDY: X-RAY CHEST REASON FOR EXAM: Male, 68 years old. ET tube placement TECHNIQUE: Single frontal view of the chest. COMPARISON: 05/23/2018 FINDINGS: Endotracheal tube tip is 5.3 cm from yeimi, in appropriate position. The lungs are clear and expanded. There is no demonstrated pleural abnormality. Normal size heart. Normal mediastinum and emerald. Normal visualized pulmonary arteries. Normal visualized aortic arch and descending thoracic aorta. There are diffuse degenerative changes of the visualized thoracic spine. Normal visualized ribs, clavicles, and shoulders. There is no demonstrated abnormality of the visualized soft tissue structures of the upper abdomen. RAD/Chest 1 View (Portable) IMPRESSION: Endotracheal tube tip is 5.3 cm from yeimi, in appropriate position. Electronically Signed: Cleveland Wing MD at 2:05 EDT Tel , Service support , CC: George Rodríguez MD; Kenton Sánchez MD Childcare Administrator: Signed CPK TOTAL, CREATINE Collected: 05/30/2018 Status: F Source: [place] KINASE 1:30 AM [facility] REPOSITORY Order Comment: Comments: DC when propofol is d/c'd Comments: DC when propofol is d/c'd TYPE CODE TESTS RESULT OUT OF RANGE REFERENCE UNITS LAB L501.3620 39-308 U/L High CPK TOTAL 2991 Performed By: #### L501.3620, L501.5000 #### [facility] [address] [place], [address] TRIGLYCERIDES Collected: 05/30/2018 Status: F Source: [place] 1:30 AM [facility] REPOSITORY Order Comment: Comments: DC when propofol is d/c'd Comments: DC when propofol is d/c'd TYPE CODE TESTS RESULT OUT OF RANGE REFERENCE UNITS LAB L501.5000 mg/dL Normal TRIG 26 Result Comment: The drugs N-Acetylcysteine and Metamizole may falsely depress this assay. Serum Triglycerides Reference Interval Normal <150 mg/dL Borderline high 150 - 199 mg/dL High 200 - 499 mg/dL Very High > or = 500 mg/dL Performed By: #### L501.3620, L501.5000 #### [facility] [address] [facility] [place], [address] HH, HEMOGLOBIN AND Collected: 05/29/2018 Status: F Source: [place] HEMATOCRIT 10:31 PM [facility] REPOSITORY TYPE CODE TESTS RESULT OUT OF RANGE REFERENCE UNITS LAB L100.1300 13.0-16.5 g/dl Low HGB 9.8 LAB L100.1400 40-54 % Low HCT 30.3 Performed By: #### L100.0600 #### [facility] [address] [place], [address] CBC-COMPLETE BLOOD CNT Collected: 05/29/2018 Status: F Source: [place] NO DIFF 7:37 PM [facility] REPOSITORY Order Comment: Comments: To be done in PACU TYPE CODE TESTS RESULT OUT OF RANGE REFERENCE UNITS LAB L100.1000 4.4-11.0 K/mm3 High WBC 12.3 LAB L100.1200 4.6-6.2 M/mm3 Low RBC 4.15 LAB L100.1300 13.0-16.5 g/dl Normal HGB 13.5 LAB L100.1400 40-54 % Normal HCT 40.2 LAB L100.1500 80-94 fL High MCV 96.9 LAB L100.1600 27.0-32.0 pg High MCH 32.5 LAB L100.1700 32-36 g/gl Normal MCHC 33.6 LAB L100.1810 11.6-14.6 % Normal RDW CV 14.1 LAB L100.1820 35.1-43.9 fl High RDW SD 48.2 LAB L100.1900 150-450 K/mm3 Normal PLT 207 LAB L100.2000 6.2-12.0 fl Normal MPV 9.4 Performed By: #### L100.0500 #### [facility] [address] [place], [address] BASIC METABOLIC Collected: 05/29/2018 Status: F Source: [place] PROFILE (BMP) 7:37 PM [facility] REPOSITORY Order Comment: Comments: To be done in PACU TYPE CODE TESTS RESULT OUT OF RANGE REFERENCE UNITS LAB L501.0100 74-106 mg/dL High GLU 159 Result Comment: Fasting Glucose result greater than or equal to 126 mg/dL suggests DIABETES MELLITUS per A.D.A. criteria. Please note revised GLUCOSE reference range effective 2017. LAB L501.1000 7-18 mg/dL Normal BUN 14 LAB L501.1100 0.70-1.30 mg/dL Normal CREAT,SERUM 1.11 Result Comment: The validity of the calculated GFR AND GFRAA in patients over 70 years has not been determined. Clinical correlation is essential. LAB L501.1110 >60 mL/min Normal EST GFR 70 Result Comment: Non- GFR Calc LAB L501.1115 >60 mL/min Normal EST GFR - AA 85 Result Comment: GFR Calc LAB L501.1255 ml/min Normal Estimated CRCL 65.77 LAB L501.1300 10-20 RATIO Normal BUN/CRE 12.6 LAB L501.2200 8.5-10 mg/dL Normal .1 CA 8.5 LAB L501.5300 136-14 mmol/L Normal 5 NA 142 LAB L501.5600 3.5-5. mmol/L Normal 1 K 4.5 LAB L501.5900 98-107 mmol/L High CL 109 LAB L501.6100 21.0-3 mmol/L Normal 2.0 CO2 23.0 LAB L501.6200 5-15 Normal GAP 10 Performed By: #### L500.2500 #### [facility] [address] [place], [address] OPERATIVE REPORT Observed: 05/29/2018 Status: F Source: [place] 7:03 PM [facility] [place] REPOSITORY [facility] Medical Records Department [address] [place] [address] Operative Report 05/29/18 1855 MR#: [id number] Acct: [id number] Name: HEATHER ESTRADA Rep #: [id number] : 1950 68 From: Claude Khan MD PCP: Kenton Sánchez MD Status: ADM IN Y [place] [facility] [id number] Report of Operation Date of Procedure: 05/29/18 Pre-Operative Diagnosis: Left large renal mass Post-Operative Diagnosis: Same Surgery/Procedure Performed:: Left laparoscopic robotic assisted partial nephrectomy intraoperative ultrasound Description of Surgical Findings:: 68-year-old male was found to have a 5 cm tumor in the upper pole anterior of the left kidney the tumor is near the hilum but amenable to a partial nephrectomy therefore recommended we proceed with a laparoscopic robotic assisted partial nephrectomy we also talked about the possibility of having to radical nephrectomy. 68-year-old male taken back to the operating room after smooth induction of general anesthesia he was placed supine on the table he underwent an intubation Fabian catheter was placed patient was then positioned full flank left side up the abdomen was shaved prepped and draped in usual sterile fashion I went into the made in the small incision in this and the skin and then use a Veress needle and into the entered the peritoneal cavity filled the peritoneal cavity with CO2 gas I then placed a camera trocar into the peritoneal cavity I then placed my left robotic trocar my right robotic trocar and an and a second right robotic trocar to help with retracting the hilum. We then placed an air seal port by the umbilicus and we proceeded with the dissection first the colon was identified the white line of Toldt was was identified we incised the white line of Toldt and reflected the colon off the kidney felt following the plane between the colon fat and the Gerota's fat once the colon was completely released off the kidney laterally than went back to the kidney dissected the colon off and eventually I encountered the tail of the Gerota's fascia identified the gonadal vein and ureter elevated this up and then dissected underneath the Gerota's fat fat and because of the psoas muscle March my way up along the aorta and eventually identified the renal vein I then identified the renal artery which is superior to the renal vein and the renal artery was freed enough to allow for clip to go on it then once the hilum was dissected out the renal artery was identified and dissected out then I went to the kidney and went to the tumor and used for intraoperative ultrasound to ultrasound to do performed ultrasonography of the kidney took some time to identify the tumor that was coming off in the anterior pole facing medially I then opened up the fascia over the Gerota's fascia down dissected down to the kidney parenchyma and then I dissected the fat off the kidney until I got to the tumor edge then I dissected the fat off the tumor itself. Then I dissected the anterior portion of the tumor off the kidney capsule posterior was very hard to get to it was an anterior tumor right at the hilum right next to the vein and right next to the artery I had to retract the tumor away from the vein artery to dissect medially. Once I then done and left dissection to start the procedure anteriorly I used the ultrasound to luis fernando out my approach to the tumor making sure that I would have a complete negative margin and was deep enough into the kidney I then clamped the artery with a long bulldog and also use a short bulldog the double clamp the renal artery with this then the started the cutting into the parenchyma following the markings on the capsule of the kidney and went deep into the kidney deep into the sinus and then started rolling the tumor out of the kidney either retract the renal vein and artery medially and then dissected along this plane between the tumor and renal artery and vein cutting the renal tumor off the renal artery and vein and then transected the posterior aspect of the capsule and then the tumor was free completely a defect was in the anterior upper pole of the kidney the tumor was immediately put in Endo Catch bag I then ran the base of the resection with 3-0 Vicryl and V lock stitches so I had her run the base to close it up very nicely I then placed FloSeal in the base and Surgicel and bolster stitches, the bulldog on the artery was removed and the blood supply to the kidney was restored there was good flow to the kidney and no bleeding from the resection site we then transferred the end of the tail of the Endo Catch back to the extraction site we extracted the tumor through the lower lower lower abdominal port site we had to open up this port site about 3 cm and then we closed the port site with interrupted 0 Vicryls I checked the tumor then and the tumor was and and visual inspection had complete resection with no violation of the tumor a good margin in the base so so grossly was a complete resection and this will be sent off for pathology after closing the extraction site and then we went back into the abdomen we inspected inspected the resection site there is no bleeding I covered the kidney back up with the Gerota's fat and stitch to back over the kidney to keep the kidney practice protected it was about 15 minutes to extract the tumor and in that time there is no pneumoperitoneum and there was no bleeding from the resection site. We then closed the variceal port with a 1012 Trace Reynolds stitch and then we closed the camera port with a Trace Reynolds stitch using 0 Vicryl we then all the port sites were closed with subcuticular stitches the patient's anesthetic is currently being reversed is clinically stable think back to PACU in good condition. Type of Anesthesia:: General Drains: fabian Estimated Blood Loss (mL): 500cc - Admit VTE Documentation VTE Present on Admission: No VTE Mechan Device Prophylaxis: SCD's VTE Pharm Prophylaxis ordered?: No 05/29/18 1903 <Electronically signed by Claude Khan MD> Date Claude Khan MD CC: Claude Khan MD; Kenton Sánchez MD Signed TYPE AND SCREEN Collected: 05/29/2018 Status: F Source: [place] 12:20 PM [facility] REPOSITORY Order Comment: Reason for Type AND Screen/Red Cells: SURGERY TYPE CODE TESTS RESULT OUT OF RANGE REFERENCE UNITS LAB B10.0800 A Normal BLOOD TYPE GEL POSITIVE LAB B100.4000 Normal Antibody NEGATIVE Screen Performed By: #### B101.7450 #### [facility] [address] [place], [place], [address] RC Collected: 05/29/2018 Status: F Source: [place] 12:20 PM [facility] REPOSITORY TYPE CODE TESTS RESULT OUT OF REFERENCE UNITS RANGE LAB U100.0000 [id number] TRANSFUSED PRODUCT: T AND S with Crossmatch, Red Cells COUNT: 2 Performed By: #### U100.0000 #### [facility] - refer to report for specific site RC Collected: 05/29/2018 Status: F Source: [place] 12:20 PM [facility] REPOSITORY TYPE CODE TESTS RESULT OUT OF REFERENCE UNITS RANGE LAB U100.0000 [id number] TRANSFUSED PRODUCT: T AND S with Crossmatch, Red Cells COUNT: 2 Performed By: #### U100.0000 #### [facility] - refer to report for specific site FFP Collected: 05/29/2018 Status: F Source: [place] 12:20 PM [facility] REPOSITORY TYPE CODE TESTS RESULT OUT OF REFERENCE UNITS RANGE LAB U100.0900 [id number] TRANSFUSED PRODUCT: Fresh Frozen Plasma COUNT: 1 Performed By: #### U100.0900 #### [facility] - refer to report for specific site RC Collected: 05/29/2018 Status: F Source: [place] 12:20 PM [facility] REPOSITORY TYPE CODE TESTS RESULT OUT OF REFERENCE UNITS RANGE LAB U100.0000 [id number] TRANSFUSED PRODUCT: T AND S with Crossmatch, Red Cells COUNT: 1 Performed By: #### U100.0000 #### [facility] - refer to report for specific site KIDNEY PARTIAL/TOTAL Observed: 05/29/2018 Status: F Source: [place] NEPHRECT 12:00 AM [facility] REPOSITORY Patient: HEATHER ESTRADA : 1950 (68/M) Acct Num: [id number] Phys: Erin BROWER,Tee Unit Num: [id number] Loc: U [id number] Specimen: [id number] Received: 05/30/18 - 3 Spec Type: KIDNEY TISSUES TISSUES: A. Kidney, NOS B. 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 No lymph nodes identified. Pathologic findings in nonneoplastic kidney - Mild arterionephrosclerosis and mild chronic inflammation. PATHOLOGIC STAGE: pT1b, NX, MX The above summary is in compliance with [employer] [place] [employer] (CAP) Cancer Protocols Checklist and [place] Joint Committee on Cancer (AJCC), Staging Manual, 8th Ed. GROSS DESCRIPTION A Received in fixative is one container labeled with the patient's name and designated left renal mass. The specimen consists of an ovoid pink-watkins mass measuring 5.2 x 5 x 5 cm and weighing 49.6 grams. Portions of this mass appear to consist of renal parenchyma that is inked blue and perinephric fat. The renal parenchyma is inked blue. The remainder of the specimen is inked in black. Sections of the mass reveal watkins-yellow hemorrhagic cut surfaces. Insulation Manager sections are submitted in 7 cassettes as follows: 1-2 - Tumor in relationship to inked presumed renal parenchyma, 3 - Tumor in relationship to perinephric fat, inked, 4-8 - Additional sections of tumor. B - Received in fixative is one container labeled with the patient's name and designated left nephrectomy. The specimen consists of a kidney that is surrounded by yellow fatty tissue. The specimen measures 21 x 15 x 8.5 cm and weighs 883 grams and consists of a kidney measuring 12 x 6 x 5.2 cm. A 3.5 cm segment of distal ureter is present. Dissection of the veins does not reveal intravascular presence of neoplasm. The renal pelvis and renal sinuses are grossly unremarkable. In the hilum of the kidney is an area of disruption with clotted blood measuring 8 x 5 x 3 cm. Dissection of this area does not reveal mass lesions. Dissection of the pelvocaliceal system does not reveal mass lesions. Dissection of the kidney proper does not reveal mass lesions. Sections of the perinephric fat do not reveal mass lesions. 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 Insulation Manager sections are submitted as follows: 1 - Ureteric and vascular margins of resection, 2 - Renal sinus, 3 - Renal pelvis, 4 AND 5 - Perinephric fat, 6-7 - Kidney. AM:sp 05/31/18 TC: 0 CPT: 38312 x2 HEADER OPERATION: Laparoscopic robotic partial left nephrectomy PRE-OP DIAGNOSIS: Left renal mass TISSUE SUBMITTED: A) Left partial nephrectomy, B) Left complete nephrectomy MICROSCOPIC DESCRIPTION Slides are reviewed. MICROSCOPIC DIAGNOSIS A. Left renal mass, partial nephrectomy: Clear cell renal cell carcinoma. See comment below. B. Left kidney, radical nephrectomy: Mild arterionephrosclerosis and minimal chronic inflammation. No evidence of malignancy. See comment below. AM:sp 06/03/18 Signed Rodney Harini 06/03/18 <signature on file> Performed By: #### PKID #### [facility] [address] [place] [address]. [place], [address] 12 LEAD ELECTROCARDIOGRAM Observed: 05/28/2018 Status: F Source: [place] 2:35 PM [facility] REPOSITORY [facility] Cardiovascular Services [address] [place] [address] 12 Lead EKG 05/23/18 1029 MR#: [id number] Acct: [id number] Name: HEATHER ESTRADA Rep #: [id number] : 1950 68 From: Avtar Ibarra MD Attending Dr: Claude Khan MD Status: PRE [facility] [place] Ordering Dr: Claude Khan MD Date: 05/23/18 Location: [facility] [place] Sex: M C Admitted: Test Reason : Blood Pressure : / mmHG Vent. Rate : 046 BPM Atrial Rate : 046 BPM P-R Int : 174 ms QRS Dur : 076 ms QT Int : 438 ms P-R-T Axes : 065 -20 -18 degrees QTc Int : 383 ms Marked sinus bradycardia Abnormal ECG Confirmed by AVTAR IBARRA MD ([id number]), supervising film or videotape editor ALBER ALMODOVAR ([id number]) on 05/28/2018 2:35:20 PM Referred By: Claude Khan Confirmed By:AVTAR IBARRA MD 05/28/18 1435 Date Avtar Ibarra MD CC: Claude Khan MD; Kenton Sánchez MD Signed COMPREHENSIVE METABOLIC Collected: 05/23/2018 Status: F Source: [place] 11:45 AM [facility] REPOSITORY TYPE CODE TESTS RESULT OUT OF RANGE REFERENCE UNITS LAB L501.0100 74-106 mg/dL Normal GLU 103 Result Comment: Fasting Glucose result from 100 to 125 mg/dL suggests IMPAIRED HOMEOSTASIS per A.D.A. criteria. Please note revised GLUCOSE reference range effective 2017. LAB L501.1000 7-18 mg/dL Normal BUN 16 LAB L501.1100 0.70-1.30 mg/dL Normal CREAT,SERUM 0.88 Result Comment: The validity of the calculated GFR AND GFRAA in patients over 70 years has not been determined. Clinical correlation is essential. LAB L501.1110 >60 mL/min Normal EST GFR 92 Result Comment: Non- GFR Calc LAB L501.1115 >60 mL/min Normal EST GFR - AA 111 Result Comment: GFR Calc LAB L501.1255 ml/min Normal Estimated CRCL 82.95 LAB L501.1300 10-20 RATIO Normal BUN/CRE 18.2 LAB L501.1500 6.4-8. g/dL Normal 2 T PROT 7.5 LAB L501.1800 3.2-5. g/dL Normal 0 ALB 3.5 LAB L501.1950 2.2-4. g/dL Normal 2 GLOB 4.0 LAB L501.2000 0.9-2. RATIO Normal 4 A/G 0.9 LAB L501.2200 8.5-10 mg/dL Normal .1 CA 9.1 LAB L501.4100 15-37 U/L Normal AST 23 LAB L501.4305 45-117 U/L Normal ALK P 68 LAB L501.4405 16-61 U/L Normal ALT 27 LAB L501.4600 0.20-1 mg/dL Normal .00 T BILI 0.70 LAB L501.5300 136-14 mmol/L Normal 5 NA 139 LAB L501.5600 3.5-5. mmol/L Normal 1 K 4.1 LAB L501.5900 98-107 mmol/L Normal CL 107 LAB L501.6100 21.0-3 mmol/L Normal 2.0 CO2 25.0 LAB L501.6200 5-15 Normal GAP 7 Performed By: #### L500.4050 #### [facility] [address] [place], [address] CBC W/DIFF, AUTOMATED Collected: 05/23/2018 Status: F Source: [place] 11:45 AM [facility] REPOSITORY TYPE CODE TESTS RESULT OUT OF RANGE REFERENCE UNITS LAB L100.1000 4.4-11.0 K/mm3 Normal WBC 7.8 LAB L100.1200 4.6-6.2 M/mm3 Normal RBC 4.72 LAB L100.1300 13.0-16.5 g/dl Normal HGB 15.0 LAB L100.1400 40-54 % Normal HCT 44.7 LAB L100.1500 80-94 fL High MCV 94.7 LAB L100.1600 27.0-32.0 pg Normal MCH 31.8 LAB L100.1700 32-36 g/gl Normal MCHC 33.6 LAB L100.1810 11.6-14.6 % Normal RDW CV 13.6 LAB L100.1820 35.1-43.9 fl High RDW SD 45.9 LAB L100.1900 150-450 K/mm3 Normal PLT 176 LAB L100.2000 6.2-12.0 fl Normal MPV 10.2 LAB L100.2100 47-70 % Normal NEUT% 62.5 LAB L100.2200 19-41 % Normal LY% 25.1 LAB L100.2300 0-10 % Normal MONO% 8.8 LAB L100.2400 0-5 % Normal EO% 2.9 LAB L100.2500 0-1 % Normal BASO% 0.3 LAB L100.2550 0.0-0.9 % Normal IM GRAN % 0.400 Result Comment: IG% - Immature Granulocytes (promyelocytes, myelocytes and metamyelocytes) > 1% indicates that a LEFT SHIFT is Present. LAB L100.2620 2.0-7.7 X10 3/uL Normal Absolute Neut 4.9 LAB L100.2720 0.83-4.51 X10 3/ul Normal Absolute Lymph 1.96 Performed By: #### L100.0100 #### [facility] [address] [place], [address] CHEST PA AND LATERAL Observed: 05/23/2018 Status: F Source: [place] 11:27 AM [facility] REPOSITORY [facility] Imaging Services [address] [place] [address] Chest PA and Lateral MR#: [id number] Acct: [id number] Name: HEATHER ESTRADA Rep #: [id number] : 1950 M 68 From: Eladio Villanueva MD PCP: Kenton Sánchez MD Status: PRE [facility] [place] Study: Chest PA and Lateral Date of Exam: 05/23/18 Exam# [id number] Ordering Dr: Claude Khan MD STUDY: X-RAY CHEST REASON FOR EXAM: Male, 68 years old. Preop for hysterectomy TECHNIQUE: PA and lateral views of the chest. COMPARISON: None. FINDINGS: Lungs are expanded with chronic interstitial changes, no superimposed acute pulmonary process. There is no demonstrated pleural abnormality. Normal size heart. Normal mediastinum and emerald. Normal visualized pulmonary arteries. Normal visualized aortic arch and descending thoracic aorta. There are diffuse degenerative changes of the visualized thoracic spine. Normal visualized ribs, clavicles, and shoulders. There is no demonstrated abnormality of the visualized soft tissue structures of the upper abdomen. RAD/Chest PA and Lateral IMPRESSION: Chronic interstitial changes, no superimposed acute pulmonary process Electronically Signed: Zaheer Villanueva MD at 12:21 EDT , Service support , CC: Claude Khan MD; Kenton Sánchez MD Childcare Administrator: Signed PROGRESS Observed: 05/09/2018 Status: COMPLETED Source: [place] 10:43 AM [facility] [place] REPOSITORY HNO ID: [id number] Author: Silke (Bisque Ware Dipper) Older Service: (none) Author Type: Nurse Practitioner Type: Progress Notes Filed: 05/09/2018 11:20 AM Note Text: CC: Patient presents with: Follow up on MRI HPI Heather Estrada is a 68 year old male who presents today for hospital follow-up and review results of MRI. Facility: [facility], [place], [place] Date of visit: 04/12/18 to 04/13/18 Reason for visit: left abdominal pain Hospital course: CBC and CMP unremarkable, urinalysis positive for blood, CT abdomen and pelvis showed diffuse colitis extending to the rectum and left renal mass. MRI of the abdomen showed 5 x 4.8 x 4.3 cm mass upper pole of left kidney with subtle invasion into left psoas muscle, suspicious for RCC. Urology was consulted, advised patient of treatment options including partial or radical nephrectomy. GI consulted, diagnosed with possible infectious colitis vs ischemic colitis. Recommended colonoscopy if symptoms persisted. Current symptoms: GI symptoms have resolved. Denies abdominal pain, diarrhea, constipation, nausea, vomiting, black/bloody stools or decreased appetite. Asking for urology referral for renal mass. Plan on having done in [place] because he has a better support system there. Denies dysuria, hesitancy, urgency, frequency or hematuria. Denies any concerns or issues today. REVIEW OF SYSTEMS General: no fevers and no chills PAST MEDICAL HISTORY Diagnosis Date - Elevated PSA - Esophageal reflux Gastroesophageal reflux - Glaucoma [facility] PAST SURGICAL HISTORY Procedure Laterality Date - COLONOSCOP W/ OR W/O BRSH SPEC 2002 Colonoscopy - COLONOSCOP W/ OR W/O BRSH SPEC 04/01/07 - EGD W/O BRSH SPECIMEN W/BX 04/01/07 - EGD W/O OR W/BRUSH/WASH 2002 EGD - INGUINAL HERNIA REPAIR HX Cebul Sr. - REPAIR UMBILICAL SAMARA,5+Y/O,REDUC 10/08/89 Cebul, mesh - TONSILLECTOMY HX ALLERGIES Patient has no known allergies. MEDICATIONS timolol (TIMOPTIC-XE) 0.5 % ophthalmic gel-forming Use 1 Drop in both eyes twice daily. brimonidine (ALPHAGAN) 0.2 % ophthalmic solution Use 1 Drop in both eyes every 12 hours. mefloquine (LARIUM) 250 mg tablet Take 1 tablet by mouth once each week. terbinafine HCl (LAMISIL) 250 mg tablet Take 1 tablet by mouth once daily. diclofenac, EC, (VOLTAREN) 75 mg EC tablet Take 1 tablet by mouth twice daily. Take as needed for back pain. Take with food. latanoprost (XALATAN) 0.005 % ophthalmic solution once daily. triamcinolone acetonide (KENALOG) 0.5 % cream Apply 1 application to affected area twice daily. Apply sparingly. bacitracin (ANTIBIOTIC, BACITRACIN ZINC,) ointment Apply 1 application to affected area twice daily. FAMILY HISTORY Problem Relation Age of Onset - Prostate Cancer Father - Cancer Mother pnacreatic ca. Social History Substance Use Topics - Smoking status: Current Every Day Smoker Types: Cigars - Smokeless tobacco: Never Used Comment: a couple a day - Alcohol use Yes PHYSICAL EXAM BP 100/70 (BP Site: Left Arm, BP Position: Sitting, BP Cuff Size: Large Adult) Pulse (!) 58 Temp 36.6 ?C (97.8 ?F) (Temporal Artery) Resp 16 Wt 85.7 kg (189 lb) SpO2 98% BMI 27.12 kg/m? General Appearance: well appearing, in no acute distress, alert Lungs: Lungs clear to auscultation. No wheezing, rhonchi, rales Heart: RRR without murmur, gallop, or rubs. No ectopy Abdomen: Abdomen soft, non-tender. Bowel sounds normal. No masses, organomegaly ASSESSMENT/PLAN: 1. Left renal mass - ICD9: 593.9, ICD10: N28.89 (primary diagnosis) Asymptomatic. Advised patient if he plans on having surgery done in [place] he will need to have initial appointment with urologist there. - CONSULT TO UROLOGY, referral printed and given to patient. Advised to Medicare prior to scheduling to ensure coverage Needs to establish with PCP 2. Colitis - ICD9: 558.9, ICD10: K52.9 Symptoms resolved. Patient due for screening colonoscopy but would like to hold off on this while he is dealing with kidney issues Prescription instructions reviewed with patient as applicable. Potential red flag symptoms discussed with the patient. Reviewed appropriate action plan to take if red flag symptoms occur. Patient agreeable to treatment plan. Silke Woodruff APRN.ASSOCIATE TECHNICIAN CNOV Observed: 05/09/2018 Status: COMPLETED Source: [place] 10:40 AM [facility] RE[facility] Office Visit (INTMWS) HEATHER ESTRADA ([id number]) 1950 M Date Time Provider Department 05/09/18 10:40 AM SILKE WOODRUFF (FRIEDA) INTMWS During your visit today, we recorded the following information about you: Temperature Pulse Respiration Blood pressure 97.8 degrees 58/minute 16/minute 100/70 Weight 85.7 kg Silke Woodruff APRN.CNP 05/09/2018 11:20 AM Signed CC: Patient presents with: Follow up on MRI HPI Heather Estrada is a 68 year old male who presents today for hospital follow-up and review results of MRI. Facility: [place], [place] Date of visit: 04/12/18 to 04/13/18 Reason for visit: left abdominal pain Hospital course: CBC and CMP unremarkable, urinalysis positive for blood, CT abdomen and pelvis showed diffuse colitis extending to the rectum and left renal mass. MRI of the abdomen showed 5 x 4.8 x 4.3 cm mass upper pole of left kidney with subtle invasion into left psoas muscle, suspicious for RCC. Urology was consulted, advised patient of treatment options including partial or radical nephrectomy. GI consulted, diagnosed with possible infectious colitis vs ischemic colitis. Recommended colonoscopy if symptoms persisted. Current symptoms: GI symptoms have resolved. Denies abdominal pain, diarrhea, constipation, nausea, vomiting, black/bloody stools or decreased appetite. Asking for urology referral for renal mass. Plan on having done in [place] because he has a better support system there. Denies dysuria, hesitancy, urgency, frequency or hematuria. Denies any concerns or issues today. REVIEW OF SYSTEMS General: no fevers and no chills PAST MEDICAL HISTORY Diagnosis Date - Elevated PSA - Esophageal reflux Gastroesophageal reflux - Glaucoma [place] PAST SURGICAL HISTORY Procedure Laterality Date - COLONOSCOP W/ OR W/O BRS SPEC 2002 Colonoscopy - COLONOSCOP W/ OR W/O BRSH SPEC 04/01/07 - EGD W/O BRSH SPECIMEN W/BX 04/01/07 - EGD W/O OR W/BRUSH/WASH 2002 EGD - INGUINAL HERNIA REPAIR HX Cebul Sr. - REPAIR UMBILICAL SAMARA,5+Y/O,REDUC 10/08/89 Cebul, mesh - TONSILLECTOMY HX ALLERGIES Patient has no known allergies. MEDICATIONS timolol (TIMOPTIC-XE) 0.5 % ophthalmic gel-forming Use 1 Drop in both eyes twice daily. brimonidine (ALPHAGAN) 0.2 % ophthalmic solution Use 1 Drop in both eyes every 12 hours. mefloquine (LARIUM) 250 mg tablet Take 1 tablet by mouth once each week. terbinafine HCl (LAMISIL) 250 mg tablet Take 1 tablet by mouth once daily. diclofenac, EC, (VOLTAREN) 75 mg EC tablet Take 1 tablet by mouth twice daily. Take as needed for back pain. Take with food. latanoprost (XALATAN) 0.005 % ophthalmic solution once daily. triamcinolone acetonide (KENALOG) 0.5 % cream Apply 1 application to affected area twice daily. Apply sparingly. bacitracin (ANTIBIOTIC, BACITRACIN ZINC,) ointment Apply 1 application to affected area twice daily. FAMILY HISTORY Problem Relation Age of Onset - Prostate Cancer Father - Cancer Mother pnacreatic ca. Social History Substance Use Topics - Smoking status: Current Every Day Smoker Types: Cigars - Smokeless tobacco: Never Used Comment: a couple a day - Alcohol use Yes PHYSICAL EXAM BP 100/70 (BP Site: Left Arm, BP Position: Sitting, BP Cuff Size: Large Adult) Pulse (!) 58 Temp 36.6 ?C (97.8 ?F) (Temporal Artery) Resp 16 Wt 85.7 kg (189 lb) SpO2 98% BMI 27.12 kg/m? General Appearance: well appearing, in no acute distress, alert Lungs: Lungs clear to auscultation. No wheezing, rhonchi, rales Heart: RRR without murmur, gallop, or rubs. No ectopy Abdomen: Abdomen soft, non-tender. Bowel sounds normal. No masses, organomegaly ASSESSMENT/PLAN: 1. Left renal mass - ICD9: 593.9, ICD10: N28.89 (primary diagnosis) Asymptomatic. Advised patient if he plans on having surgery done in [place] he will need to have initial appointment with urologist there. - CONSULT TO UROLOGY, referral printed and given to patient. Advised to Medicare prior to scheduling to ensure coverage Needs to establish with PCP 2. Colitis - ICD9: 558.9, ICD10: K52.9 Symptoms resolved. Patient due for screening colonoscopy but would like to hold off on this while he is dealing with kidney issues Prescription instructions reviewed with patient as applicable. Potential red flag symptoms discussed with the patient. Reviewed appropriate action plan to take if red flag symptoms occur. Patient agreeable to treatment plan. JOSE Barker APRN.CNP 05/09/2018 11:[address] Nicolas Harp Recommend calling medicare/insurance prior to scheduling Referring Provider: SELF [200] Allergies As of Date: 05/09/2018 (No Known Allergies) Date Reviewed: 05/09/2018 Reviewed by: Tasneem Lala Order Department Supervisor - Fully Assessed Reason for Visit: Follow up on MRI [Other] Primary Visit Diagnosis:Left renal mass [N28.89] Other Visit Diagnosis:Colitis [K52.9] Order(s):CONSULT TO UROLOGY [9041] Order #: [id number]: 1 Prescriptions as of 05/09/2018 Sig: TIMOLOL MALEATE 0.5 % EYE GEL* Use 1 Drop in both eyes twice* BRIMONIDINE 0.2 % EYE DROPS Use 1 Drop in both eyes every* MEFLOQUINE 250 MG TABLET Take 1 tablet by mouth once e* TERBINAFINE HCL 250 MG TABLET Take 1 tablet by mouth once d* DICLOFENAC SODIUM 75 MG TABLE* Take 1 tablet by mouth twice * LATANOPROST 0.005 % EYE DROPS once daily. TRIAMCINOLONE ACETONIDE 0.5 %* Apply 1 application to affect* BACITRACIN ZINC 500 UNIT/GRAM* Apply 1 application to affect* Problem List As Of Date 05/09/2018 Noted Resolved GLAUCOMA NOS [H40.9] INVALID FOR* ESOPHAGEAL REFLUX [K21.9] INVALID FOR* FAMILY HISTORY OF PROSTATE MALIGNANCY [Z80.42] INVALID FOR* Lateral epicondylitis of elbow [M77.10] INVALID FOR*11/16/2014 UMBILICAL HERNIA W/O GANGRENE/OBSTRUCTION [K42.*INVALID FOR*11/16/2014 MELENA [K92.1] INVALID FOR*11/16/2014 ELEVATED PROSTATE SPECIFIC ANTIGEN [R97.20] INVALID FOR* Actinic Keratoses: 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 GERD with esophagitis [K21.0] INVALID FOR* More... Tinea of nail [B35.1] INVALID FOR* Other instructions from your clinician: Dr. Nicolas Harp Recommend calling medicare/insurance prior to scheduling Encounter Status:Closed by SILKE WOODRUFF CNP on 05/09/18 HOSP Observed: 11/07/2017 Status: COMPLETED Source: [place] 1:15 PM [facility] REPOSITORY Office Visit OPHT (OPHTMN) HEATHER ESTRADA ([id number]) 1950 M Date Time Provider Department 11/07/17 1:15 PM PRADIP GELLER During your visit today, we recorded the following information about you: Pradip Geller MD 11/07/2017 1:56 PM Signed Tmax: 18, 23; Pachy: 546, 556 Lasers and Surgeries: OD: - OS: - Ocular Medication Intol and Non-efficacy: Timolol liquid solution=nonresponse per patient Referred by Dr. Conde Currently on Timolol 0.5% gel bid OU, Cosopt qd OU and Latanoprost qam OU POAG mild stage OD OHTN borderline glaucoma OS -HVF today 10/2017 OD normal. OS minimal sup NS -OCT today 10/2017 possibly normal OU, but can not r/o mild inf thinning OD; large discs OU -patient tells me IOP may be 27-[address] he last saw Dr[address] Conde -try changing Cosopt qd to Brimonidine 0.2% q12 h -Ok to follow up with Dr. Conde and I am happy to see him PRN Mild cortical cataract OU I, Pradip Geller MD, have edited as necessary and confirmed the relevant ophthalmic history, ROS, and neuro exam findings as obtained by others. I have seen and examined Heather Estrada. I also have reviewed, edited as necessary, and agree with the assessment and plan and all of its relevant components as stated above. I have discussed the case and the management of this patient's care with the Resident/Fellow, if applicable. Pradip Geller MD 11/07/2017 1:56 PM Signed About 7am Latanoprost (turquoise) -wait 5 min- Brimonidine (purple) -wait 5 min- Timolol (yellow) About 7pm Brimonidine (purple) -wait 5 min- Timolol (yellow) Referring Provider: CARY CONDE (OD) [[id number]] Allergies As of Date: 11/07/2017 (No Known Allergies) Date Reviewed: 11/07/2017 Reviewed by: Pradip Geller - Fully Assessed Reason for Visit: Glaucoma Evaluation [1921] Primary Visit Diagnosis:Primary open angle glaucoma (POAG) of right eye, mild stage [H40.1111] Other Visit Diagnoses:Glaucoma suspect of left eye [H40.002] Cortical senile cataract of both eyes [H25.013] Order(s):IOP MEASUREMENT [8339582] Order #: [id number]: 1 FUTURE PACHYMETRY OU (BOTH EYES) [6594018] Order #: [id number]: 1 FUTURE VISUAL FIELD 24-2 OU (BOTH EYES) [] Order #: [id number]: 1 FUTURE DILATED FUNDUS EXAM [] Order #: [id number]: 1 FUTURE OCT OPTIC NERVE CIRRUS OU (BOTH EYES) [] Order #: [id number]: 1 FUTURE IOP MEASUREMENT [] Order #: [id number]: 1 PACHYMETRY OU (BOTH EYES) [] Order #: [id number]: 1 VISUAL FIELD 24-2 OU (BOTH EYES) [] Order #: [id number]: 1 DILATED FUNDUS EXAM [] Order #: [id number]: 1 OCT OPTIC NERVE CIRRUS OU (BOTH EYES) [] Order #: [id number]: 1 brimonidine (ALPHAGAN) 0.2 % ophthalmic solutionUse 1 Drop in both eyes every 12 hours.Disp: 10 mLRfl: 11 IOP MEASUREMENT [] Order #: [id number]: 1 FUTURE Prescriptions as of 11/07/2017 Sig: MEFLOQUINE 250 MG TABLET Take 1 tablet by mouth once e* LATANOPROST 0.005 % EYE DROPS once daily. TRIAMCINOLONE ACETONIDE 0.5 %* Apply 1 application to affect* TIMOLOL MALEATE 0.5 % EYE GEL* Use 1 Drop in both eyes twice* BRIMONIDINE 0.2 % EYE DROPS Use 1 Drop in both eyes every* TERBINAFINE HCL 250 MG TABLET Take 1 tablet by mouth once d* DICLOFENAC SODIUM 75 MG TABLE* Take 1 tablet by mouth twice * BACITRACIN ZINC 500 UNIT/GRAM* Apply 1 application to affect* Problem List As Of Date 11/07/2017 Noted Resolved GLAUCOMA NOS [H40.9] INVALID FOR* ESOPHAGEAL REFLUX [K21.9] INVALID FOR* FAMILY HISTORY OF PROSTATE MALIGNANCY [Z80.42] INVALID FOR* Lateral epicondylitis of elbow [M77.10] INVALID FOR*11/16/2014 UMBILICAL HERNIA W/O GANGRENE/OBSTRUCTION [K42.*INVALID FOR*11/16/2014 MELENA [K92.1] INVALID FOR*11/16/2014 ELEVATED PROSTATE SPECIFIC ANTIGEN [R97.20] INVALID FOR* Actinic Keratoses: 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 GERD with esophagitis [K21.0] INVALID FOR* More... Tinea of nail [B35.1] INVALID FOR* Other instructions from your clinician: About 7am Latanoprost (turquoise) -wait 5 min- Brimonidine (purple) -wait 5 min- Timolol (yellow) About 7pm Brimonidine (purple) -wait 5 min- Timolol (yellow) Prescriptions ordered this encounter Disp Refills Start End BRIMONIDINE 0.2 % EYE DROPS 10 mL 11 11/07/2017 Route: BOTH EYES Sig: Use 1 Drop in both eyes every 12 hours. Medications Discontinued During This Encounter timolol (TIMOLOL HEMIHYDRATE) 0.25 %* 0 07/17/2011 11/07/2017 Class: Historical Med Route: BOTH EYES Sig: Use 1 Drop in both eyes once daily. Disc: Reason for discontinue is not on file. bimatoprost (LUMIGAN) 0.03 % OPHTHAL* 0 01/22/2007 11/07/2017 Class: Historical Med Route: OPHTHALMIC Si drop in each eye once daily Disc: Reason for discontinue is not on file. dorzolamide-timolol (COSOPT) 22.3-6.* 11/07/2017 Class: Historical Med Si Drop twice daily. Disc: Reason for discontinue is not on file. Annotated image of OPHT HUE FUNDUS DISC OD last updated by Pradip Geller on 11/07/2017 1:49 PM Letter Text Encounter Status:Closed by PRADIP GELLER MD on 11/07/17 PROGRESS Observed: 11/07/2017 Status: COMPLETED Source: [place] 12:48 PM [facility] REPOSITORY HNO ID: [id number] Author: Pradip Geller Service: (none) Author Type: Physician Type: Progress Notes Filed: 11/07/2017 1:56 PM Note Text: Tmax: 18, 23; Pachy: 546, 556 Lasers and Surgeries: OD: - OS: - Ocular Medication Intol and Non-efficacy: Timolol liquid solution=nonresponse per patient Referred by Dr. Conde Currently on Timolol 0.5% gel bid OU, Cosopt qd OU and Latanoprost qam OU POAG mild stage OD OHTN borderline glaucoma OS -HVF today 10/2017 OD normal. OS minimal sup NS -OCT today 10/2017 possibly normal OU, but can not r/o mild inf thinning OD; large discs OU -patient tells me IOP may be 27-28 when he last saw Dr. Conde -try changing Cosopt qd to Brimonidine 0.2% q12 h -Ok to follow up with Dr. Conde and I am happy to see him PRN Mild cortical cataract OU I, Pradip Geller MD, have edited as necessary and confirmed the relevant ophthalmic history, ROS, and neuro exam findings as obtained by others. I have seen and examined Heather Estrada. I also have reviewed, edited as necessary, and agree with the assessment and plan and all of its relevant components as stated above. I have discussed the case and the management of this patient's care with the Resident/Fellow, if applicable. ALLERGIES ALLERGIES DATE TYPE / CODE NAME / CODE REACTION SEVERITY SOURCE 07/30/2018 Drug No Known Unknown Ajit [facility] Allergy/416 Allergies/R85754 [facility] 096690(SNOM 0388(RXNORM) Repository ED CT) Drug NO KNOWN [facility] Class/92200 ALLERGIES [facility] 1003(SNOMED Repository CT) ENCOUNTERS ENCOUNTERS ADMIT/DISCHARGE ACCOUNT ADMITTING ENCOUNTER LOCATION SOURCE NUMBER CLASS 09/10/2018 [id number] Ambulatory BMSBuilding:B Ajit MS.CF.[facility] Repository 09/10/2018 [id number] Ambulatory [facility] ing:[facility] Repository 09/09/2018 [id number] Ambulatory [facility] ing:LAB Repository 07/30/2018/07/30/20 [id number] Ambulatory BMSBuilding:Guicho Fong 18 MS.[facility] Repository 07/29/2018 [id number] Ambulatory BMSBuilding:Guicho Fong MS.[facility] Repository 07/09/2018/07/09/20 [id number] Ambulatory [address] Repository 07/05/2018/07/05/20 [id number] Ambulatory [address] Repository 07/05/2018/07/10/20 [id number] Ambulatory [address] Repository 05/30/2018 [id number] Ambulatory BMSBuilding:Hector Fong [facility] Repository 05/29/2018/06/03/20 [id number] Claude Khan Inpatient [address] ing:PCURoom: Repository [id number]: 1 05/29/2018/06/03/20 [id number] Ambulatory BMSBuilding:W [address] Repository 05/29/2018/06/03/20 [id number] Ambulatory BMSBuilding:W [address] Repository 05/23/2018/06/03/20 [id number] Ambulatory BMSBuilding:W [address] Repository 05/09/2018/05/10/20 [id number] Ambulatory [address] Repository 11/07/2017/11/13/19 [id number] Ambulatory [address] Repository PAYERS PAYERS ENCOUNTER GUARANTOR PAYER SUBSCRIBER SOURCE 09/10/2018 HEATHER Young Primary HEATHER [id number] Insurance:BRENDA PARRA: [facility] MEDICARE [facility] [id number] Repository [address]Rsa: (408) [id number] [phone] () Date:[id number] [address]UC: 09/10/2018 Secondary NOT GIVENUNK [place] Insurance:SELF PAY [facility] Effective Repository Date:2018-09-10 09/10/2018 HEATHER Young Primary HEATHER Young [place] [id number] Insurance:HUMANA PHILLIPSDOB: Community [address] MEDICARE OPolicy [id number] Number: Repository [address]Mit: 330 [id number] [phone] (HP) Date:9913-14-74NW [address] [address]GX: 09/10/2018 Secondary NOT GIVENUNK [place] Insurance:SELF PAY [facility] Number: Effective Repository Date:2018-07-30 09/09/2018 HEATHER Young Primary HEATHER Young Ajit [id number] Insurance:HUMANA PHILLIPSDOB: [address] MEDICARE [facility] [id number] Number: Repository [address]Fdu: 330 [id number] [phone] (HP) Date:2065-97-46DF [address] [address]VU: 09/09/2018 Secondary NOT GIVENUNK [place] Insurance:SELF PAY [facility] Number: Effective Repository Date:2018-09-09 07/30/2018 HEATHER Young Primary HEATHER Young [place] [id number] Insurance:HUMANA PHILLIPSDOB: [facility] [address] MEDIC[facility] OPolicy [id number] Number: Repository [address]Pxj: 330 [id number] [phone] () Date:7160-75-80YY [address] [address]WO: 07/30/2018 Secondary NOT GIVENUNK [place] Insurance:SELF PAY [facility] Number: Effective Repository Date:2018-07-30 07/29/2018 HEATHER Young Primary HEATHER Young [place] [id number] Insurance:HUMANA PHILLIPSDOB: Community [address] [facility] [id number] Number: Repository [address]Lab: (330 [id number] [phone] (HP) Date:5585-60-75KK [address] [address]IQ: 07/29/2018 Secondary NOT GIVENUNK Ajit Insurance:SELF PAY [facility] Number: Effective Repository Date:2018-07-29 05/30/2018 HEATHER Young Primary HEATHER Young Ajit [id number] Insurance:HUMANA PHILLIPSDOB: Community [address] MEDICARE OPolic [id number] Number: Repository [address]Qfk: 330 [id number] [phone] (HP) Date:7981-15-76ZC[address] [address]XI: 05/30/2018 Secondary NOT GIVENUNK [place] Insurance:SELF PAY [facility] Number: Effective Repository Date:2018-05-30 05/29/2018 HEATHER W Primary HEATHER Young Ajit [id number] Insurance:HUMANA PHILLIPSDOB: Community [address] MEDICARE [facility] [id number] Number: Repository [address]Wao: 330 [id number] [phone] (HP) Date:5020-13-36WC[address] [address]FF: 05/29/2018 Secondary NOT GIVENUNK [place] Insurance:SELF PAY [facility] Number: Effective Repository Date:2018-05-17 05/29/2018 HEATHER W Primary HEATHER Young Ajit [id number] Insurance:HUMANA PHILLIPSDOB: Community [address] MEDICARE [facility] [id number] Number: Repository [address]Rbm: 330 [id number] [phone] (HP) Date:5021-10-61OS[address] [address]BD: 05/29/2018 Secondary NOT GIVENUNK Ajit Insurance:SELF PAY [facility] Number: Effective Repository Date:2018-05-29 05/29/2018 HEATHER W Primary HEATHER W Ajit [id number] Insurance:HUMANA PHILLIPSDOB: Community [address] MEDICARE [facility] [id number] Number: Repository [address]Omk: 330 [id number] [phone] () Date:7999-20-40FX [address] [place] [address]OZ: 05/29/2018 Secondary NOT GIVENUNK Ajit Insurance:SELF PAY [facility] Number: Effective Repository Date:2018-05-29 05/23/2018 HEATHER W Primary HEATHER [id number] Insurance:HUMANA PHILLIPSDOB: [facility] [address] MEDICARE [facility] [id number] Number: Repository [address]Jlx: 330 [id number] [phone] () Date:3054-28-09VE [address] [address]FT: 05/23/2018 Secondary NOT GIVENUNK Ajit Insurance:SELF PAY [facility] Number: Effective Repository Date:2018-05-23
== END ==
PROVIDERS: Family Provider Internal Medicine; PCP Internal Medicine; Referring Provider Internal Medicine Cardiovascular Disease; Visit Provider Internal Medicine Cardiovascular Disease
DX: R74.8 Abnormal levels of other serum enzymes (principal); I35.1 Nonrheumatic aortic (valve) insufficiency
CPT/HCPCS: 36415; 80061; 80076

== ENCOUNTER → 2018-09-10 10:39 | Outpatient (CLI) | payer MEDICARE, SELFPAY ==
[2018-07-30 14:46] VITALS: BMI 24.8
--- NOTE | 2018-09-10 10:40 | STE_ITS ---
Reason For Study: ELEVATED TROPONIN Stress Results Protocol: Stress Echocardiogram Maximum Predicted HR: 152 bpm Target HR: 129 bpm % Maximum Predicted HR: 97 % DurationHeart Rate Stage (mm:ss) (bpm) BP BASELINE 63 128/78 THADDEUS PROTOCOL- STAGE 1 3:00 110 146/76 THADDEUS PROTOCOL- STAGE 2 3:00 130 158/76 THADDEUS PROTOCOL- STAGE 3 1:11 148 / RECOVERY 79 118/70 Stress Duration: 7:11 mm:ss Maximum Stress HR: 148 bpm Baseline Echocardiogram Findings The estimated ejection fraction is 65 %. Stress Echo Wall motion Data Resting WM Intermediate WM Stress WM Resting Wall Motion Wall Motion Stress No regional wall motion No regional wall motion abnormalities noted. abnormalities noted. EKG Data The baseline ECG displays normal sinus rhythm. The patient exercised according to the regular Thaddeus protocol for a total duration of 7:11. The maximum heart rate attained was 148 beats per minute. This was 97% of maximum predicted heart rate. The patient exercised into stage 3 of the Thaddeus protocol. During stress, there were no ST or T wave changes noted to suggest ischemia. No clinical angina was noted. Interpretation Summary The estimated ejection fraction is 65 %. Normal, adequate, treadmill echocardiogram. Negative for ischemia by EKG and echocardiographic criteria. No anginal symptoms noted. Appropriate blood pressure response to exercise. Rare PVC noted. Final LVEF is 75%. Test terminated due to the attainment of target heart rate, dyspnea and fatigue. No complications. Ordering Physician: Kannan Hassan Referring Physician: Kenton Rendon M.D. Performed By: Lori Finley, ALEJANDRO, RVT
== END ==
PROVIDERS: Family Provider Internal Medicine; PCP Internal Medicine; Referring Provider Internal Medicine Cardiovascular Disease; Visit Provider Internal Medicine Cardiovascular Disease
DX: I25.10 Atherosclerotic heart disease of native coronary artery without angina pectoris (principal); I35.1 Nonrheumatic aortic (valve) insufficiency; R74.8 Abnormal levels of other serum enzymes
CPT/HCPCS: 93017; 93350; A4216

== ENCOUNTER → 2018-10-24 10:06 | Outpatient (CLI) | payer MEDICARE, SELFPAY ==
[2018-07-30 14:46] VITALS: BMI 24.8
--- NOTE | 2018-10-24 10:13 | RAD_ITS ---
STUDY: X-RAY CHEST REASON FOR EXAM: Male, 68 years old. The patient has a history of renal carcinoma. TECHNIQUE: PA and lateral views of the chest. COMPARISON: Comparison is made with prior study dated May 31, 2018. FINDINGS: Hyperinflation. Scattered calcified granulomas. There is no demonstrated pleural abnormality. Normal size heart. Normal mediastinum and emerald. Normal visualized pulmonary arteries. There is atherosclerotic tortuosity of the aortic arch and descending thoracic aorta. There are diffuse degenerative changes of the visualized thoracic spine. Normal visualized ribs, clavicles, and shoulders. There is no demonstrated abnormality of the visualized soft tissue structures of the upper abdomen. RAD/Chest PA and Lateral IMPRESSION: Hyperinflation. No acute abnormality is seen. Electronically Signed: Trey King MD at 10:09 EST Tel [phone], Service support ,
--- OUTSIDE RECORDS SUMMARY | 2018-12-29 00:19 | XMS RPT_ITS ---
:1950 Author Organization OHIP Support Name Relationship Address Phone NEO ESTRADA Unavailable Unavailable + [place], [place] ESTRADA PHUC Unavailable Unavailable + [place] [address] R Unavailable Unavailable Unavailable NATALIE NEO Unavailable Unavailable + [place], [place] MARICEL ESTRADAICIA Unavailable Unavailable + [place] [address] R Unavailable Unavailable Unavailable NATALIE NEO Unavailable Unavailable + [place] ESTRADA PHUC Unavailable Unavailable + [place] [address] R Unavailable Unavailable Unavailable NATALIE NEO Unavailable Unavailable + [place] ESTRADA PHUC Unavailable Unavailable + [place] [address] R Unavailable Unavailable Unavailable NATALIE NEO Unavailable . + ., [place] . ESTRADA, PHUC Unavailable . + ., [place] . R Unavailable Unavailable Unavailable NATALIE NEO Unavailable Unavailable + NATALIE PHUC Unavailable Unavailable + R Unavailable Unavailable Unavailable NATALIE NEO Unavailable Unavailable + NATALIE, PHUC Unavailable Unavailable + R Unavailable Unavailable Unavailable NATALIE NEO Unavailable Unavailable + NATALIE PHUC Unavailable Unavailable + R Unavailable Unavailable Unavailable NATALIE NEO Unavailable Unavailable + NATALIE PHUC Unavailable Unavailable + R Unavailable Unavailable Unavailable NATALIE NEO Unavailable Unavailable + NATALIE PHUC Unavailable Unavailable + R Unavailable Unavailable Unavailable ESTRADA, NEO Unavailable Unavailable + PHUC ESTRADA Unavailable Unavailable + R Unavailable Unavailable Unavailable Care Team Providers Name Role Phone KIT GUS (BLACKING WHEEL TENDER) Attending Unavailable SÁNCHEZ, JULIO C Referring Unavailable SÁNCHEZ, JULIO C Referring Unavailable SÁNCHEZ, JULIO C Attending Unavailable SÁNCHEZ, JULIO C Referring Unavailable SÁNCHEZ, JULIO C Referring Unavailable SÁNCHEZ, JULIO C Referring Unavailable SÁNCHEZ, JULIO C Attending Unavailable SILKE WOODRUFF (COTTRELL BLOWER) Attending Unavailable EISENGPRADIP SPENCER Attending Unavailable ELTONCARY CHUNG (OD) Referring Unavailable Erin, Claude Cooney Attending Unavailable Erin, Claude Cooney Referring Unavailable Sánchez, Kenton Primary Care Unavailable Erin, Claude Cooney Attending Unavailable Erin, Tee Referring Unavailable Sánchez, Kenton Primary Care Unavailable Erin, Tee Admitting Unavailable Thaddeus Zurita Consulting Unavailable Thaddeus Zurita Attending Unavailable Erin, Claude Cooney Referring Unavailable FredAvtar Attending Unavailable Erin, Claude Cooney Referring Unavailable Kannan Hassan Attending Unavailable Erin, Claude Cooney Referring Unavailable Fred, Avtar Attending Unavailable ParminderThaddeus Referring Unavailable Gin Perez Attending Unavailable Kannan Hassan Attending Unavailable Sánchez, Kenton Referring Unavailable Kannan Hassan Attending Unavailable Kannan Hassan Referring Unavailable Sánchez, Kenton Primary Care Unavailable Kannan Hassan Attending Unavailable Kannan Hassan Referring Unavailable Sánchez, Kenton Primary Care Unavailable Kannan Hassan Attending Unavailable Kannan Hassan Referring Unavailable Sánchez, Kenton Primary Care Unavailable Kannan Hassan Consulting Unavailable PROBLEMS PROBLEMS DATE TYPE CONDITION / CODE ATTENDING STATUS SOURCE 07/05/2018 Active Other acute kidney NA Active [facility] failure / Clinic Main N17.8(ICD-10) [place] Repository 09/11/2018 Unknown R74.8 - Abnormal Kannan Hassan Active [place] levels of other serum Community enzymes / Hospital R74.8(ICD-10) Repository 09/11/2018 Unknown I35.1 - Nonrheumatic Kannan Hassan Active [place] aortic (valve) Community insufficiency / Hospital I35.1(ICD-10) Repository 07/05/2018 Active Acute posthemorrhagic NA Active [place] anemia / D62(ICD-10) Clinic Main [place] Repository 07/09/2018 Active Encounter for NA Active [facility] screening for other [facility] Main viral diseases / [place] Z11.59(ICD-10) Repository 07/05/2018 Active Non-ST elevation NA Active [facility] (NSTEMI) myocardial Clinic Main infarction / [place] I21.4(ICD-10) Repository 07/02/2018 Unknown I21.4 - Non-ST Fred, Avtar Active [place] elevation (NSTEMI) [facility] myocardial infarction Hospital / I21.4(ICD-10) Repository 06/03/2018 Unknown R93.422 - Abnormal ErinClaude collins Active [place] radiologic findings on [facility] diagnostic imaging of Hospital left kidney / Repository R93.422(ICD-10) 06/12/2018 Unknown J96.00 - Acute Parminder, Thaddeus Active [place] respiratory failure, Community unspecified whether Hospital with hypoxia or Repository hypercapnia / J96.00(ICD-10) 06/12/2018 Unknown R57.8 - Other shock / Parminder, Thaddeus Active [place] R57.8(ICD-10) [facility] Repository 06/12/2018 Unknown N17.8 - Other acute Parminder, Thaddeus Active [place] kidney failure / Community N17.8(ICD-10) Hospital Repository 06/12/2018 Unknown H40.9 - Unspecified Parminder, Thaddeus Active [place] glaucoma / Community H40.9(ICD-10) Hospital Repository 06/27/2018 Unknown R94.31 - Abnormal Fred, Avtar Active [place] electrocardiogram Community [ECG] [EKG] / Hospital R94.31(ICD-10) Repository 06/27/2018 Unknown R00.1 - Bradycardia, Fred, [place] Active [place] unspecified / Community R00.1(ICD-10) Hospital Repository 11/07/2017 Active Preglaucoma, EISENGART, Active [place] unspecified, bilateral PRADIP A Clinic Main / H40.003(ICD-10) [place] Repository PROCEDURES PROCEDURES No Procedure Records FoundRESULTS RESULTS CHEST PA AND LATERAL Observed: 10/24/2018 Status: F Source: [place] 10:13 AM [facility] REPOSITORY [facility] Imaging Services [address] [place] [address] Chest PA and Lateral MR#: [id number] Acct: [id number] Name: HEATHER ESTRADA #: [id number] : 1950 M 68 From: Trey King MD PCP: Kenton Sánchez MD Status: REG CLI Study: Chest PA and Lateral Date of Exam: 10/24/18 Exam# [id number] Ordering Dr: Claude Khan MD STUDY: X-RAY CHEST REASON FOR EXAM: Male, 68 years old. The patient has a history of renal carcinoma. TECHNIQUE: PA and lateral views of the chest. COMPARISON: Comparison is made with prior study dated May 31, 2018. FINDINGS: Hyperinflation. Scattered calcified granulomas. There is no demonstrated pleural abnormality. Normal size heart. Normal mediastinum and emerald. Normal visualized pulmonary arteries. There is atherosclerotic tortuosity of the aortic arch and descending thoracic aorta. There are diffuse degenerative changes of the visualized thoracic spine. Normal visualized ribs, clavicles, and shoulders. There is no demonstrated abnormality of the visualized soft tissue structures of the upper abdomen. RAD/Chest PA and Lateral IMPRESSION: Hyperinflation. No acute abnormality is seen. Electronically Signed: Trey King MD at 10:09 EST Tel [phone], Service support , CC: Claude Khan MD; Kenton Sánchez MD Fur Cutting Machine Operator: Signed HISTORY PHYSICAL Observed: 10/21/2018 Status: COMPLETED Source: [place] 3:20 PM [facility] REPOSITORY HNO ID: [id number] Author: Gus Jenkins Service: (none) Author Type: Nurse Practitioner Type: HANDP Filed: 10/21/2018 6:45 PM Note Text: Heather Estrada a 68 year old male who is a consultation requested by Dr. Sánchez for an opinion regarding GERD. My final recommendations will be communicated back to the requesting physician by way of shared Medical record. The patient has not been seen previously. The patient denies a family history of colon cancer. it has been more than ten years since his last documented colonoscopy. The patient was seen by Dr. Sánchez on 10/09/18, leading to this consultation. That note has been reviewed and part as follows: He had GERD with recurrent nausea and vomiting clear phlegm the past 2 months or so. He was also due for colonoscopy and follow up of colitis diagnosed in [place]. The patient underwent stress test for , on 09/11/18, due to an elevated troponin: Interpretation Summary The estimated ejection fraction is 65 %. Normal, adequate, treadmill echocardiogram. Negative for ischemia by EKG and echocardiographic criteria. No anginal symptoms noted. Appropriate blood pressure response to exercise. Rare PVC noted. Final LVEF is 75%. Test terminated due to the attainment of target heart rate, dyspnea and fatigue. No complications. Presenting complaint: The patient presents today stating that he thinks he has PND in the morning. Gets nauseated quickly, might vomit. Also a bit queasy if bending over. The patient tells me that he had been taking omeprazole for about 10-12 years. He stopped that about 2014. The patient tells me that he started with pain in the RUQ, that seemed to radiate across the upper abdomen, then down the left side. CT scan showed possible colitis and kidney issue. The patient had an CHRIS of the kidney and had follow up in [place], with Dr. Khan. He underwent surgery about May 30 2018. He has signed a release for the CT and MRI - I explained that the possible colitis could be from poor coating of the colon. We'll see what the report says. The patient denies change in bowel habits, rectal bleeding or abdominal pain. Having a bowel movement daily. He denies that he had any altered bowel habits at the time of the abdnormal CT. REVIEW OF SYSTEMS: GENERAL: Weight loss related to surgery and time of recovery. RESPIRATORY: Negative for cough, hemoptysis, wheezing, COPD, dyspnea or shortness of breath CARDIOVASCULAR: Negative for chest pain, leg swelling, hypertension, CHF or palpitations. Negative stress test as reported above. GI: The patient states that his appetite has been good. He does get hungry. There has been some nausea and vomiting. He denies dysphagia and denies odynophagia. There has not been indigestion or heartburn. There has not been regurgitation. Bowel habits have been irregular. There has not been diarrhea. There has not been constipation. The patient denies rectal bleeding. There has not been melena. No abdominal pain. : Sees Dr. Khan- underwent nephrectomy 04/2018. post op complications/ bleed. MUSCULOSKELETAL: Negative for new or worsening joint pain or swelling, back pain or muscle pain PSYCH: Negative for sleep disturbance, mood disorder and recent psychosocial stressors. HEMATOLOGY/LYMPHOLOGY Negative for prolonged bleeding, bruising easily or swollen nodes ENDOCRINE: No thyroid or diabetes NEURO: No history of headaches, syncope, paralysis, seizures or tremors All other reviewed and negative other than HPI. PAST MEDICAL HISTORY Diagnosis Date - Acute respiratory failure (HCC) 06/12/2018 - Chronic low back pain without sciatica 07/05/2018 - CKD (chronic kidney disease) stage 3, GFR 30-59 ml/min (HCC) 10/10/2018 - Colitis 04/13/2018 - Elevated prostate specific antigen (PSA) 06/27/2007 - Esophageal reflux Gastroesophageal reflux - FAMILY HISTORY OF PROSTATE MALIGNANCY 01/22/2007 - GERD with esophagitis 05/16/2017 - Glaucoma [facility] - Malignant neoplasm of kidney (HCC) 05/29/2018 - Non-ST elevation (NSTEMI) myocardial infarction (HCC) 07/02/2018 type II from hemorrhagic shock - Nonrheumatic aortic valve insufficiency 09/11/2018 - Other acute kidney failure 06/12/2018 - Postoperative anemia due to acute [...] - FINGER AMPUTATION (SPECIFY DIGIT) HX Right 1969 right 2nd and 3rd fingertips, traumatic - [facility]GU[facility]. - LAPAROSC PARTIAL NEPHRECTOMY Left 05/29/2018 postop bleeding. - REPAIR UMBILICAL SAMARA,5+Y/O,REDUC 10/08/1989 [place], mesh - TONSILLECTOMY HX 1955 FAMILY HISTORY Problem Relation Age of Onset - Prostate Cancer Father - Cancer Mother pnacreatic ca. Current Outpatient Prescriptions: acetaminophen-codeine (TYLENOL-COD #3) 300-30 mg per tablet Take 1 tablet by mouth every 6 hours as needed. Disp: Rfl: 0 timolol (TIMOPTIC-XE) 0.5 % ophthalmic gel-forming Use 1 Drop in both eyes twice daily. Disp: Rfl: brimonidine (ALPHAGAN) 0.2 % ophthalmic solution Use 1 Drop in both eyes every 12 hours. Disp: 10 mL Rfl: 11 latanoprost (XALATAN) 0.005 % ophthalmic solution once daily. Disp: Rfl: No current facility-administered medications for this visit. SOCIAL HISTORY: Patient is single. He smokes few cigarretes per day. He smokes cannabis at least once a week. He reports his alcohol use as everyday having a beer and a couple shots of liquor. PHYSICAL EXAMINATION: Blood pressure 124/76, pulse (!) 57, height 177.8 cm (5' 10), weight 88.5 kg (195 lb). General Appearance: Well appearing, alert, in no acute distress, well-hydrated, well nourished. Skin: Skin color, texture, turgor normal, no suspicious rashes or lesions. Head: Normocephalic, no masses, lesions or abnormalities. Eyes: Anicteric sclera. Oropharynx: Lips, mucosa, and tongue normal, teeth and gums normal, oropharynx normal. Neck: Supple, no adenopathy; thyroid symmetric, normal size. Lungs: lungs clear to auscultation. No wheezing, rhonchi, rales. Heart: RRR without murmur. Abdomen: Bowel sounds normal. Well healed incision left abdomen. Abdomen soft, non-tender. No masses, organomegaly. Extremities: No deformities, edema. Peripheral Pulses: Normal. Neurologic: Gait normal. Sensation grossly intact. Impression: GERD 2)nausea/vomiting 3)question of colitis 4)colon screening Plan: Labs. Will order a PPI after I get the results. Review CT results. The patient will be scheduled for an upper endoscopy as well as a colonoscopy. Preparation for the procedures, using GoLytely as the laxative, have been explained in detail. The risks, benefits, anticipated outcomes and possible complications were mentioned. I explained the procedure in understandable terms and the patient was given printed material concerning the planned procedure. The patient had the opportunity to ask questions concerning the planned procedure. The patient freely consents to the planned procedure. The patient is encouraged to call with any questions or concerns, or should there be any change in health status between now and the scheduled procedure. I have personally interviewed and examined this patient. I have read the information that the MA documented in this encounter. I spent 30 minutes in the visit, with more than 50% of the total ovhl-xm-hiad time of the visit in counseling / coordination of care. Gus Jenkins RN APRN.FRIEDA STRINGEROV Observed: 10/21/2018 Status: COMPLETED Source: [place] 3:20 PM [facility] REPOSITORY Office Visit ([facility]) HEATHER ESTRADA ([id number]) 1950 M Date Time Provider Department 10/21/18 3:20 PM GUS JENKINS (BLACKING WHEEL TENDER) [facility] During your visit today, we recorded the following information about you: Pulse Blood pressure Weight Height 57/minute 124/76 88.5 kg 1.778 m Gus Jenkins RN APRN.COTTRELL BLOWER 10/21/2018 6:45 PM Signed Heather Estrada a 68 year old male who is a consultation requested by Dr. Sánchez for an opinion regarding GERD. My final recommendations will be communicated back to the requesting physician by way of shared Medical record. The patient has not been seen previously. The patient denies a family history of colon cancer. it has been more than ten years since his last documented colonoscopy. The patient was seen by Dr. Sánchez on 10/09/18, leading to this consultation. That note has been reviewed and part as follows: He had GERD with recurrent nausea and vomiting clear phlegm the past 2 months or so. He was also due for colonoscopy and follow up of colitis diagnosed in [place]. The patient underwent stress test for , on 09/11/18, due to an elevated troponin: Interpretation Summary The estimated ejection fraction is 65 %. Normal, adequate, treadmill echocardiogram. Negative for ischemia by EKG and echocardiographic criteria. No anginal symptoms noted. Appropriate blood pressure response to exercise. Rare PVC noted. Final LVEF is 75%. Test terminated due to the attainment of target heart rate, dyspnea and fatigue. No complications. - Presenting complaint: The patient presents today stating that he thinks he has PND in the morning. Gets nauseated quickly, might vomit. Also a bit queasy if bending over. The patient tells me that he had been taking omeprazole for about 10-12 years. He stopped that about 2014. The patient tells me that he started with pain in the RUQ, that seemed to radiate across the upper abdomen, then down the left side. CT scan showed possible colitis and kidney issue. The patient had an CHRIS of the kidney and had follow up in [place], with Dr. Khan. He underwent surgery about May 30 2018. He has signed a release for the CT and MRI - I explained that the possible colitis could be from poor coating of the colon. We'll see what the report says. The patient denies change in bowel habits, rectal bleeding or abdominal pain. Having a bowel movement daily. He denies that he had any altered bowel habits at the time of the abdnormal CT. REVIEW OF SYSTEMS: GENERAL: Weight loss related to surgery and time of recovery. RESPIRATORY: Negative for cough, hemoptysis, wheezing, COPD, dyspnea or shortness of breath CARDIOVASCULAR: Negative for chest pain, leg swelling, hypertension, CHF or palpitations. Negative stress test as reported above. GI: The patient states that his appetite has been good. He does get hungry. There has been some nausea and vomiting. He denies dysphagia and denies odynophagia. There has not been indigestion or heartburn. There has not been regurgitation. Bowel habits have been irregular. There has not been diarrhea. There has not been constipation. The patient denies rectal bleeding. There has not been melena. No abdominal pain. : Sees Dr. Khan- underwent nephrectomy 04/2018. post op complications/ bleed. MUSCULOSKELETAL: Negative for new or worsening joint pain or swelling, back pain or muscle pain PSYCH: Negative for sleep disturbance, mood disorder and recent psychosocial stressors. HEMATOLOGY/LYMPHOLOGY Negative for prolonged bleeding, bruising easily or swollen nodes ENDOCRINE: No thyroid or diabetes NEURO: No history of headaches, syncope, paralysis, seizures or tremors All other reviewed and negative other than HPI. PAST MEDICAL HISTORY Diagnosis Date - Acute respiratory failure (HCC) 06/12/2018 - Chronic low back pain without sciatica 07/05/2018 - CKD (chronic kidney disease) stage 3, GFR 30-59 ml/min (HCC) 10/10/2018 - Colitis 04/13/2018 - Elevated prostate specific antigen (PSA) 06/27/2007 - Esophageal reflux Gastroesophageal reflux - FAMILY HISTORY OF PROSTATE MALIGNANCY 01/22/2007 - GERD with esophagitis 05/16/2017 - Glaucoma [facility] - Malignant neoplasm of kidney (HCC) 05/29/2018 - Non-ST elevation (NSTEMI) myocardial infarction (HCC) 07/02/2018 type II from hemorrhagic shock - Nonrheumatic aortic valve insufficiency 09/11/2018 - Other acute kidney failure 06/12/2018 - Postoperative anemia due to acute [...] traumatic - [facility]GUINAL [facility]ERN[facility] - LAPAROSC PARTIAL NEPHRECTOMY Left 05/29/2018 postop bleeding. - REPAIR UMBILICAL SAMARA,5+Y/O,REDUC 10/08/1989 [place], mesh - TONSILLECTOMY HX 1955 FAMILY HISTORY Problem Relation Age of Onset - Prostate Cancer Father - Cancer Mother pnacreatic ca. Current Outpatient Prescriptions: acetaminophen-codeine (TYLENOL-COD #3) 300-30 mg per tablet Take 1 tablet by mouth every 6 hours as needed. Disp: Rfl: 0 timolol (TIMOPTIC-XE) 0.5 % ophthalmic gel-forming Use 1 Drop in both eyes twice daily. Disp: Rfl: brimonidine (ALPHAGAN) 0.2 % ophthalmic solution Use 1 Drop in both eyes every 12 hours. Disp: 10 mL Rfl: 11 latanoprost (XALATAN) 0.005 % ophthalmic solution once daily. Disp: Rfl: No current facility-administered medications for this visit. SOCIAL HISTORY: Patient is single. He smokes few cigarretes per day. He smokes cannabis at least once a week. He reports his alcohol use as everyday having a beer and a couple shots of liquor. PHYSICAL EXAMINATION: Blood pressure 124/76, pulse (!) 57, height 177.8 cm (5' 10), weight 88.5 kg (195 lb). General Appearance: Well appearing, alert, in no acute distress, well-hydrated, well nourished. Skin: Skin color, texture, turgor normal, no suspicious rashes or lesions. Head: Normocephalic, no masses, lesions or abnormalities. Eyes: Anicteric sclera. Oropharynx: Lips, mucosa, and tongue normal, teeth and gums normal, oropharynx normal. Neck: Supple, no adenopathy; thyroid symmetric, normal size. Lungs: lungs clear to auscultation. No wheezing, rhonchi, rales. Heart: RRR without murmur. Abdomen: Bowel sounds normal. Well healed incision left abdomen. Abdomen soft, non-tender. No masses, organomegaly. Extremities: No deformities, edema. Peripheral Pulses: Normal. Neurologic: Gait normal. Sensation grossly intact. Impression: GERD 2)nausea/vomiting 3)question of colitis 4)colon screening Plan: Labs. Will order a PPI after I get the results. Review CT results. The patient will be scheduled for an upper endoscopy as well as a colonoscopy. Preparation for the procedures, using GoLytely as the laxative, have been explained in detail. The risks, benefits, anticipated outcomes and possible complications were mentioned. I explained the procedure in understandable terms and the patient was given printed material concerning the planned procedure. The patient had the opportunity to ask questions concerning the planned procedure. The patient freely consents to the planned procedure. The patient is encouraged to call with any questions or concerns, or should there be any change in health status between now and the scheduled procedure. I have personally interviewed and examined this patient. I have read the information that the MA documented in this encounter. I spent 30 minutes in the visit, with more than 50% of the total ypnt-vs-muca time of the visit in counseling / coordination of care. Gus Jenkins RN CATERER HELPER.FRIEDA Jenkins RN APRN.FRIEDA 10/21/2018 4:10 PM Signed Please follow the provided instructions for upper endoscopy and colonoscopy. You will be using GoLytely as the laxative during the preparation. You may start the laxative as early as 1:00 in the afternoon. Your procedures will be with Dr. Neal, on November 11. The endoscopy staff will call you the day before the procedure with specific on arrival time. (Sunday for Sunday procedures). Referring Provider: KENTON SÁNCHEZ [[id number]] Allergies As of Date: 10/21/2018 (No Known Allergies) Date Reviewed: 10/09/2018 Reviewed by: Supriya Kunz LPN - Fully Assessed Reason for Visit: GERD [548] Primary Visit Diagnosis:Gastroesophageal reflux disease, esophagitis presence not specified [K21.9] Other Visit Diagnoses:Encounter for screening for malignant neoplasm of colon [Z12.11] Nausea [R11.0] Order(s):EGD [1091575] Order #: [id number] FUTURE COLONOSCOPY SCRN NOT HIGH RISK [I2161UMU] Order #: [id number] FUTURE peg 3350-electrolytes (COLYTE) 240-22.72-6.72 -5.84 gram solutionTake 4,000 mL by mouth one time only for 1 dose.Disp: 1 BottleRfl: 0 COMP METABOLIC PANEL [SQCMP] Order #: [id number] FUTURE AMYLASE BLD [SQAMYL] Order #: [id number] FUTURE Prescriptions as of 10/21/2018 Sig: PEG 3350 240 GRAM-ELECTROLYTE* Take 4,000 mL by mouth one ti* ACETAMINOPHEN 300 MG-CODEINE * Take 1 tablet by mouth every * TIMOLOL MALEATE 0.5 % EYE GEL* Use 1 Drop in both eyes twice* BRIMONIDINE 0.2 % EYE DROPS Use 1 Drop in both eyes every* LATANOPROST 0.005 % EYE DROPS once daily. Problem List As Of Date 10/21/2018 Noted Resolved Primary open angle glaucoma (POAG) of both eyes*INVALID FOR* ESOPHAGEAL REFLUX [K21.9] INVALID FOR* FAMILY [...] neoplasm of kidney (HCC) [C64.9] INVALID FOR* More... Postoperative anemia due to acute blood loss [D*INVALID FOR*10/09/2018 Non-ST elevation (NSTEMI) myocardial infarction*INVALID FOR*10/09/2018 Acute respiratory failure (HCC) [J96.00] INVALID FOR*10/09/2018 CKD (chronic kidney disease) stage 3, GFR 30-59*INVALID FOR* Chronic low back pain without sciatica [M54.5, *INVALID FOR* Nonrheumatic aortic valve insufficiency [I35.1] INVALID FOR* More... Gastroesophageal reflux disease [K21.9] INVALID FOR* More... Encounter for screening for malignant neoplasm *INVALID FOR* More... Other instructions from your clinician: Please follow the provided instructions for upper endoscopy and colonoscopy. You will be using GoLytely as the laxative during the preparation. You may start the laxative as early as 1:00 in the afternoon. Your procedures will be with Dr. Neal, on November 11. The endoscopy staff will call you the day before the procedure with specific on arrival time. (Sunday for Sunday procedures). Prescriptions ordered this encounter Disp Refills Start End PEG 3350 240 GRAM-ELECTROLYTES 22.72* 1 Manuelito* 0 10/21/2018 10/21/2018 Route: ORAL Sig: Take 4,000 mL by mouth one time only for 1 dose. Encounter Status:Closed by GUS JENKINS CNP on 10/21/18 BASIC METABOLIC PANL Collected: 10/09/2018 Status: F Source: [place] 1:50 PM [facility] [place] REPOSITORY TYPE CODE TESTS RESULT OUT OF REFERENCE UNITS RANGE LAB GLU 74-99 mg/dL Glucose 90 Result Comment: The Australian Diabetes Association (ADA) provides guidance for cutoff [...] Standards of Medical Care in Diabetes 2016, Australian Diabetes Association. Diabetes Care. 2016.39(Suppl 1). LAB BUN 9-24 mg/dL BUN 20 LAB CRET 0.73-1.22 mg/dL Creatinine High 1.39 LAB NA 136-144 mmol/L Sodium 137 LAB K 3.7-5.1 mmol/L Potassium 4.8 LAB CL 97-105 mmol/L Chloride 101 LAB CO2 22-30 mmol/L CO2 25 LAB AGAP 9-18 mmol/L Anion Gap 11 LAB CA 8.5-10.2 mg/dL Calcium, Total 10.0 LAB GFRAA eGFR- Amer. >60 LAB GFRNAA [...] accurately reflect actual GFR. Performed By: #### BMP #### [facility] [address], [place] [address] PROGRESS Observed: 10/09/2018 Status: COMPLETED Source: [place] 1:43 PM [facility] REPOSITORY HNO ID: [id number] Author: Kenton Sánchez Service: (none) Author Type: Physician Type: Progress Notes Filed: 10/09/2018 1:46 PM Note Text: This note was created using NoteWriter. Subjective Heather Estrada is a 68 year old male was here for follow up after he established. He was doing well. He followed with Dr. Khan for urology. He had a negative stress test per Dr. Hassan. He had GERD with recurrent nausea and vomiting clear phlegm the past 2 months or so. He was also due for colonoscopy and follow up of colitis diagnosed in [place]. Review of Systems Constitutional: Negative. Respiratory: Negative. Cardiovascular: Negative. Gastrointestinal: Positive for nausea and vomiting. Negative for abdominal pain, blood in stool, constipation and diarrhea. Genitourinary: Negative. Objective BP 112/62 (BP Site: Right Arm, BP Position: Sitting, BP Cuff Size: Regular Adult) Pulse 62 Temp (!) 35.8 ?C (96.5 ?F) (Left Tympanic) Resp 18 Wt 88.5 kg (195 lb) BMI 28.56 kg/m? Physical Exam Constitutional: No distress. Skin: He is not diaphoretic. Assessment and Plan 1. Gastroesophageal reflux disease, esophagitis presence not specified - ICD9: 530.81, ICD10: K21.9 (primary diagnosis) - CONSULT TO GASTROENTEROLOGY 2. Non-intractable vomiting with nausea, unspecified vomiting type - ICD9: 787.01, ICD10: R11.2 - CONSULT TO GASTROENTEROLOGY 3. Colitis - ICD9: 558.9, ICD10: K52.9 - CONSULT TO GASTROENTEROLOGY 4. Other acute kidney failure - ICD9: 584.8, ICD10: N17.8 Recheck. Discussed chronic kidney disease and risk factor modification. 5. Malignant neoplasm of left kidney (HCC) - ICD9: 189.0, ICD10: C64.[address] Khan. 6. Nonrheumatic aortic valve insufficiency - ICD9: 424.1, ICD10: I35.[address] Hassan. Kenton Sánchez MD CNOV Observed: 10/09/2018 Status: COMPLETED Source: [place] 1:00 PM [facility] REPOSITORY Office Visit (INTMWS) HEATHER ESTRADA ([id number]) 1950 M Date Time Provider Department 10/09/18 1:00 PM KENTON SÁNCHEZ INTHEAVENLY During your visit today, we recorded the following information about you: Temperature Pulse Respiration Blood pressure 96.5 degrees 62/minute 18/minute 112/62 Weight 88.5 kg Kenton Sánchez MD 10/09/2018 1:46 PM Signed This note was created using NoteWriter. Subjective Heather Estrada is a 68 year old male was here for follow up after he established. He was doing well. He followed with Dr. Khan for urology. He had a negative stress test per Dr. Hassan. He had GERD with recurrent nausea and vomiting clear phlegm the past 2 months or so. He was also due for colonoscopy and follow up of colitis diagnosed in [place]. Review of Systems Constitutional: Negative. Respiratory: Negative. Cardiovascular: Negative. Gastrointestinal: Positive for nausea and vomiting. Negative for abdominal pain, blood in stool, constipation and diarrhea. Genitourinary: Negative. Objective BP 112/62 (BP Site: Right Arm, BP Position: Sitting, BP Cuff Size: Regular Adult) Pulse 62 Temp (!) 35.8 ?C (96.5 ?F) (Left Tympanic) Resp 18 Wt 88.5 kg (195 lb) BMI 28.56 kg/m? Physical Exam Constitutional: No distress. Skin: He is not diaphoretic. Assessment and Plan 1. Gastroesophageal reflux disease, esophagitis presence not specified - ICD9: 530.81, ICD10: K21.9 (primary diagnosis) - CONSULT TO GASTROENTEROLOGY 2. Non-intractable vomiting with nausea, unspecified vomiting type - ICD9: 787.01, ICD10: R11.2 - CONSULT TO GASTROENTEROLOGY 3. Colitis - ICD9: 558.9, ICD10: K52.9 - CONSULT TO GASTROENTEROLOGY 4. Other acute kidney failure - ICD9: 584.8, ICD10: N17.8 Recheck. Discussed chronic kidney disease and risk factor modification. 5. Malignant neoplasm of left kidney (HCC) - ICD9: 189.0, ICD10: C64.[address] Khan. 6. Nonrheumatic aortic valve insufficiency - ICD9: 424.1, ICD10: I35.[address] Hassan. Kenton Sánchez MD Referring Provider: KENTON SÁNCHEZ [[id number]] Allergies As of Date: 10/09/2018 (No Known Allergies) Date Reviewed: 10/09/2018 Reviewed by: Supriya Kunz LPN - Fully Assessed Reason for Visit: Recheck [92] Cmt: 3 month follow up Primary Visit Diagnosis:Gastroesophageal reflux disease, esophagitis presence not specified [K21.9] Other Visit Diagnoses:Non-intractable vomiting with nausea, unspecified vomiting type [R11.2] Colitis [K52.9] Other acute kidney failure [N17.8] Malignant neoplasm of left kidney (HCC) [C64.2] Nonrheumatic aortic valve insufficiency [I35.1] Order(s):CONSULT TO GASTROENTEROLOGY [0394] Order #: [id number]: 1 Prescriptions as of 10/09/2018 Sig: ACETAMINOPHEN 300 MG-CODEINE * Take 1 tablet by mouth every * BRIMONIDINE 0.2 % EYE DROPS Use 1 Drop in both eyes every* LATANOPROST 0.005 % EYE DROPS once daily. TIMOLOL MALEATE 0.5 % EYE GEL* Use 1 Drop in both eyes twice* Problem List As Of Date 10/09/2018 Noted Resolved Primary open angle glaucoma (POAG) of both eyes*INVALID FOR* ESOPHAGEAL REFLUX [K21.9] INVALID FOR* FAMILY [...] neoplasm of kidney (HCC) [C64.9] INVALID FOR* More... Postoperative anemia due to acute blood loss [D*INVALID FOR*10/09/2018 Non-ST elevation (NSTEMI) myocardial infarction*INVALID FOR*10/09/2018 Acute respiratory failure (HCC) [J96.00] INVALID FOR*10/09/2018 Other acute kidney failure (HCC) [N17.8] INVALID FOR* Chronic low back pain without sciatica [M54.5, *INVALID FOR* Nonrheumatic aortic valve insufficiency [I35.1] INVALID FOR* More... Disposition: Return in about 6 months (around 04/08/2019). Follow-up and Disposition History Recorded Encounter Status:Closed by KENTON SÁNCHEZ MD on 10/09/18 STRESS TEST ECHO W/O Observed: 09/11/2018 Status: F Source: [place] CONTRAST 5:02 PM [facility] REPOSITORY [facility] Cardiovascular Services [address] [place] [address] Stress Test Echo w/o Contrast MR#: [id number] Acct: [id number] Name: HEATHER ESTRADA Rep #: [id number] : 1950 68 From: Kannan Hassan MD [...] Date Dictated: 09/10/18 1050 Date Transcribed: 09/11/181701 Fur Cutting Machine Operator: Signed LIVER PROFILE Collected: 09/09/2018 Status: F Source: [place] 9:32 AM [facility] REPOSITORY TYPE CODE TESTS RESULT OUT OF [...] 0.15 Performed By: #### L500.3400, L500.4100 #### [facility] [address] [place], [address] LIPID PROFILE Collected: 09/09/2018 Status: F Source: [place] 9:32 AM [facility] REPOSITORY TYPE CODE TESTS RESULT OUT OF [...] 16 Performed By: #### L500.3400, L500.4100 #### [facility] [address] [place], [address] CARDIOLOGY VISIT Observed: 07/30/2018 Status: F Source: [place] REPORT 3:19 PM [facility] REPOSITORY [facility] [address] [place] [address] OFFICE VISIT Date of Service: 07/30/18 MR#: [id number] Acct: [id number] Name: HEATHER ESTRADA Rep #: [id number] : 1950 Provider: Kannan Hassan MD Age/Sex: 68/M Location: [facility] Status: Signed HPI HPI Chief Complaint: Aortic insufficiency Details: HEATHER ESTRADA, is a 68 M who presents to the office today for evaluation of aortic and elevated troponin after a partial nephrectomy complicated by acute blood loss requiring exploratory laparotomy and greater than 3000 units of EBL after presenting to [facility] with abdominal pain. Patient received [...] Intake Visit Reasons: Inc in troponin in [facility], no consult (Erin) Allergies No Known Allergies Allergy (Verified 07/30/18 14:46) Medications Latanoprost 1 drp EACH EYE DAILY 05/23/18 [History Confirmed 07/30/18] brimonidine 0.15 % eye drops 1 drp OPHTHALMIC BID ml 07/30/18 [History Confirmed 07/30/18] timolol maleate 0.5 % eye gel forming solution 1 drp OPHTHALMIC BID ml 07/30/18 [History Confirmed 07/30/18] [facility] Medical History Nonrheumatic aortic (valve) insufficiency (Acute) [...] Observed: 07/30/2018 Status: F Source: [place] [facility] 2:43 PM [facility] REPOSITORY [place] [address] [place] [address] 12 Lead EKG performed by [facility] 07/30/18 1442 MR#: [id number] Acct: [id number] Name: HEATHER ESTRADA Rep #: [id number] : 1950 68 From: Kannan Hassan MD Attending Dr: Kannan Hassan MD Status: DEP AMB Ordering Dr: Kannan Hassan MD Date: 07/30/18 [place] [facility] [place] Sex: M C Admitted: [facility]/12 Lead EKG performed by [facility] ECG Report Interpretation Sinus Bradycardia WITHIN NORMAL LIMITSElectronically signed on 09/20/2018 at 15:42 by Kannan Hassan Software Version [id number] 09/20/18 1546 Date Kannan Hassan MD CC: Kenton Sánchez MD Date Dictated: 07/30/18 1442 Date Transcribed: 07/30/18 1442 Fur Cutting Machine Operator: Signed CBC Collected: 07/09/2018 Status: F Source: [place] 7:55 AM [facility] REPOSITORY TYPE CODE TESTS RESULT OUT OF [...] Performed By: #### CBC, CMP, AHCV1B #### [facility] [address] [place], [place] [address] COMP METABOLIC PANEL Collected: 07/09/2018 Status: F Source: [place] 7:55 AM [facility] REPOSITORY TYPE CODE TESTS RESULT OUT OF REFERENCE UNITS RANGE LAB TP 6.3-8.0 g/dL Protein, Total 6.9 LAB ALB 3.9-4.9 g/dL Albumin 4.1 LAB CA 8.5-10.2 mg/dL Calcium, Total 9.6 LAB TBIL 0.2-1.3 mg/dL Bilirubin, Total 0.3 LAB ALKP 38-113 U/L Alkaline Phosphatase 70 LAB AST 14-40 U/L AST 23 LAB GLU 74-99 mg/dL Glucose High 114 Result Comment: The [place] Diabetes Association (ADA) provides guidance for cutoff [...] Standards of Medical Care in Diabetes 2016, [place] Diabetes Association. Diabetes Care. 2016.39(Suppl 1). LAB [...] Performed By: #### CBC, CMP, AHCV1B #### [facility] [employer] [address] [place], [place] [address] HEP C AB IA W/CONF Collected: 07/09/2018 Status: F Source: [place] 7:55 AM [facility] REPOSITORY TYPE CODE TESTS RESULT OUT OF REFERENCE UNITS RANGE LAB AHCV Negative Hepatitis C Ab Negative IA Performed By: #### CBC, CMP, AHCV1B #### [facility] [employer] [address] [place], [place] [address] ECG COMPLETE W Observed: 07/05/2018 Status: F Source: [place] INTERPRETATION 12:29 PM [facility] [place] REPOSITORY NAME : HEATHER ESTRADA PID : [id number] : 1950 Gender : Male Race : ORD : [id number] Procedure Date : Jul 05 2018 12:29:22 Edit Date : Jul 11 2018 08:37:40 Diagnosis:SINUS BRADYCARDIA OTHERWISE NORMAL ECG Confirmed by MAXI VIERA D.O. ([id number]) on 07/11/2018 8:37:31 AM Ventricular Rate : 58 BPM Atrial Rate : 58 BPM P-R Interval : 178 ms QRS Duration : 70 ms Q-T Interval : 418 ms QTC Calculation(Bezet) : 410 ms P Cordova : 67 degrees R Cordova : -2 degrees T Cordova : 11 degrees Test Reason : Location : 185 : [facility] Overread By : MAXI VIERA D.O. Edited By : MAXI VIERA D.O. Referred By : KENTON SÁNCHEZ Acquired by : SEG, PROGRESS Observed: 07/05/2018 Status: COMPLETED Source: [place] 12:10 PM [facility] REPOSITORY HNO ID: [id number] Author: Kenton Sánchez Service: (none) Author Type: Physician Type: Progress Notes Filed: 07/09/2018 12:52 PM Note Text: This note was created using [employer]. Subjective Patient presents with: Imm/Inj: Flu Vaccine Establish Care Heather Estrada was here for above. He developed abdominal pain April 12 while in [place], and was treated for colitis with Flagyl. [...] 2 adult children. Son and brother in [place]. Motorcycles. ALLERGIES No Known Allergies Current Outpatient [...] MD PROGRESS Observed: 07/05/2018 Status: COMPLETED Source: [place] 11:26 AM [facility] REPOSITORY O ID: [id number] Author: Supriya Kunz LPN Service: (none) Author Type: (none) Type: Progress Notes Filed: 07/09/2018 12:52 PM Note Text: 68 year old male here for INACTIVATED INFLUENZA VACCINE. 2102-9479 Season Patient is identified by name and date of : Yes [] CONTRAINDICATIONS color enhanced section Age less than 6 months? No Allergy to eggs, chicken, chicken feathers, or chicken dander? No Allergy to thimerosal (a preservative) or formaldehyde, gelatin? No History of severe reaction to any vaccine component or a previous dose of influenza vaccination? No History of Guillain-[place] Syndrome within 6 weeks after a previous [...] sheet given? Yes See immunization activity in [facility] for details of immunizations adminstered today. Patient age: [age] year old For The Flu Season 6-35 months old: Fluzone 0.25 [...] 07/05/2018 Status: COMPLETED Source: [place] 11:20 AM [facility] REPOSITORY Office Visit (INTMWS) HEATHER ESTRADA ([id number]) 1950 M Date Time Provider Department 07/05/18 11:20 AM KENTON SÁNCHEZ INTMWS During your visit today, we recorded the following information about you: Temperature Pulse Respiration Blood pressure 96 degrees 52/minute 18/minute 104/62 Weight Height 78.9 kg 1.76 m Supriya Kunz LPN 07/09/2018 12:52 PM Signed 68 year old [...] dose of influenza vaccination? No History of Guillain-[place] Syndrome within 6 weeks after a previous [...] sheet given? Yes See immunization activity in [facility] for details of immunizations adminstered today. Patient age: [age] year old For The 9626-9410 Flu Season 6-35 months old: Fluzone 0.25 [...] developed abdominal pain April 12 while in [place], and was treated for colitis with Flagyl. [...] Narrative Retired RN. Travels, volunteers abroad. since s, 2 adult children. Son and brother in [place]. Motorcycles. ALLERGIES No Known Allergies Current Outpatient [...] [K52.9] Order(s):INFLUENZA SEASONAL HIGH DOSE AGE 65+ [21514KBH] Order #: [id number] ECG COMPLETE W INTERPRETATION [ECG01] Order #: [id number] FUTURE CBC [SQCBC] Order #: [id number] FUTURE COMP METABOLIC PANEL [SQCMP] Order #: [id number] FUTURE LIPID PANEL BASIC [SQLIPB] Order #: [id number] FUTURE HEP C AB IA W/CONF SCRN [CJKVOS3B] Order #: [id number] FUTURE Prescriptions as of 07/05/2018 Sig: ACETAMINOPHEN [...] LEAD ELECTROCARDIOGRAM Observed: 06/04/2018 Status: F Source: [place] 3:12 PM [facility] REPOSITORY [facility] Cardiovascular Services [address] [place] [address] 12 Lead EKG 05/30/18 0853 MR#: [id number] Acct: [id number] Name: HEATHER ESTRADA Rep #: [id number] : 1950 68 From: Avtar Ibarra MD Attending Dr: Erin BROWER,Claude Cooney Status: DIS IN Ordering Dr: Thaddeus Zurita MD Date: 05/30/18 Location: [facility] Sex: M C Admitted: 05/29/18 Test [...] BPM Confirmed by AVTAR IBARRA MD ([id number]), map editor ALBER ALMODOVAR ([id number]) on 06/04/2018 3:12:19 PM Referred By: Claude Khan Confirmed By:AVTAR IBARRA MD 06/04/18 1512 Date Avtar Ibarra MD CC: Thaddeus Zurita MD; Claude Khan MD; Kenton Sánchez MD Signed DISCHARGE SUMMARY Observed: 06/03/2018 Status: F Source: [place] 7:13 AM [facility] REPOSITORY [facility] Medical Records Department [address] [place] [address] Discharge Summary 06/03/18 0712 MR#: [id number] Acct: [id number] Name: HEATHER ESTRADA Rep #: [id number] : 1950 68 From: Claude Khan MD PCP: Kenton Sánchez MD Status: ADM IN Y Location: [place] [address] Discharge Date and Diagnosis - Problem List [...] any problems after catheter is removed, call [phone] and ask for your doctor to be [...] Diagnoses (Choose all that apply): None applicable 06/03/18 0713 <Electronically signed by Claude Khan MD> Date Claude Khan MD Cosigner Signature (if applicable): Date CC: Claude Khan MD; Kenton Sánchez MD Signed DISCHARGE INSTRUCTION Observed: 06/03/2018 Status: F Source: [place] 7:12 AM [facility] REPOSITORY [facility] Medical Records Department [address] [place] [address] Instructions for Home/Discharge Instructions 06/03/18 0710 MR#: [id number] Acct: [id number] Name: HEATHER ESTRADA Rep #: [id number] : 1950 68 From: Claude Khan MD PCP: Kenton Sánchez MD Status: ADM IN Discharge Diet: No Restrictions, Light diet - advance as tolerated Discharge Activity: May not drive while taking narcotic pain medications. Additional Activity Instructions:: f you have a catheter, remove on ___. If you have any problems after catheter is removed, call [phone] and ask for your doctor to be [...] to make an appointment. - this . 06/03/18 0712 <Electronically signed by Claude Khan MD> Date Claude Khan MD CC: Thaddeus Zurita MD; Kenton Sánchez MD BASIC METABOLIC Collected: 06/02/2018 Status: F Source: [place] PROFILE (BMP) 5:25 AM [facility] REPOSITORY Order Comment: SPECIMEN OBTAINED FROM LINE [...] 8 Performed By: #### L500.2500, L100.0500 #### [facility] [address] [place], [place], [address] CBC-COMPLETE BLOOD CNT Collected: 06/02/2018 Status: F Source: [place] NO DIFF 5:25 AM [facility] REPOSITORY Order Comment: SPECIMEN OBTAINED FROM LINE [...] 9.6 Performed By: #### L500.2500, L100.0500 #### [facility] [address] [place], [place], [address] CBC W/DIFF, AUTOMATED Collected: 06/01/2018 Status: F Source: [place] 4:30 AM [facility] REPOSITORY TYPE CODE TESTS RESULT OUT OF [...] 2.37 Performed By: #### L100.0100, L500.2500 #### [facility] [address] [place], [address] BASIC METABOLIC Collected: 06/01/2018 Status: F Source: [place] PRO[place] (BMP) 4:30 AM [facility] REPOSITORY TYPE CODE TESTS RESULT OUT OF [...] 10 Performed By: #### L100.0100, L500.2500 #### [facility] [address] [place], [address] HH, HEMOGLOBIN AND Collected: 05/31/2018 Status: F Source: [place] HEMATOCRIT 5:15 PM [facility] REPOSITORY TYPE CODE TESTS RESULT OUT OF RANGE REFERENCE UNITS LAB L100.1300 13.0-16.5 g/dl Low HGB 8.7 LAB L100.1400 40-54 % Low HCT 26.1 Performed By: #### L100.0600 #### [facility] [address] [place], [address] ECHO, COMPLETE W/ Observed: 05/31/2018 Status: F Source: [place] CONTRAST 1:34 PM [facility] REPOSITORY [facility] Cardiovascular Services [address] [facility] [place] [address] Echo Complete 05/31/18 0953 MR#: [id number] Acct: [id number] Name: HEATHER ESTRADA Rep #: [id number] : 1950 68 From: Kannan Hassan MD Attending Dr: Claude Khan MD Status: ADM IN Ordering Dr: Thaddeus Zurita [...] max juancho: 85.6 cm/sec Lat Peak E' Juancho: 9.9 cm/sec Med Peak E' Juancho: 9.6 [...] Thaddeus Zurita MD; Claude Khan MD; Kenton Sánhcez MD Date Dictated: 05/31/18 0953 Date Transcribed: 05/31/18 133 Fur Cutting Machine Operator: Signed CONSULTATION Observed: 05/31/2018 Status: F Source: [place] 5:36 AM [facility] REPOSITORY [facility] Medical Records Department [address] [place] [address] Consultation 05/30/18 1003 MR#: [id number] Acct: [id number] Name: HEATHER ESTRADA Rep #: [id number] : 1950 68 From: Thaddeus Zurita MD PCP: Kenton Sánchez MD Status: ADM IN Y Location: ICU ICU-1 Problem List (1) Renal malignant tumor Status: [...] medical history listed below, who presented to [facility] on 05/29/2018 secondary to an [...] states that this mass was noted in [place]. Patient does not use any assistive devices [...] may be a type II non-ST elevation TX that occurred during the acute hemorrhage in the partial nephrectomy. 5. Glaucoma Complicates care, management, recovery and prognosis. TIME: 40 minutes critical care time spent addressing patient's acute respiratory failure, hemorrhagic shock, acute kidney injury, review of all data and collaboration with care team (7 AM to 9 AM) Code Visit 9xxxx: [id number] Critical care first hour 05/31/18 0536 <Electronically signed by Thaddeus Zurita MD> Date Thaddeus Zurita MD Cosigner Signature (if applicable): Date CC: Thaddeus Zurita MD; Claude Khan MD; Kenton Sánchez MD Signed CBC-COMPLETE BLOOD CNT Collected: 05/31/2018 Status: F Source: [place] NO DIFF 4:15 AM [facility] REPOSITORY TYPE CODE TESTS RESULT OUT OF [...] MPV 9.3 Performed By: #### L100.0500 #### [facility] [address] [place], [address] BASIC METABOLIC Collected: 05/31/2018 Status: F Source: [place] PROFILE (BMP) 4:15 AM [facility] REPOSITORY TYPE CODE TESTS RESULT OUT OF [...] GAP 6 Performed By: #### L500.2500 #### [facility] [address] [place], [address] CHEST 1 VIEW Observed: 05/31/2018 Status: F Source: [place] (PORTABLE) 12:00 AM [facility] REPOSITORY [facility] Imaging Services [address] [place] [address] Chest 1 View (Portable) MR#: [id number] Acct: [id number] Name: HEATHER ESTRADA Rep #: [id number] : 1950 M 68 From: Trey King MD PCP: Kenton Sánchez MD Status: ADM IN Study: Chest 1 View (Portable) Date of Exam: 05/31/18 Exam# [id number] Ordering Dr: Thaddeus Zurita MD STUDY: X-RAY [...] Trey King MD at 9:33 EDT Tel [phone], Service support , CC: Thaddeus Zurita MD; Kenton Sánchez MD Fur Cutting Machine Operator: Signed HH, HEMOGLOBIN AND Collected: 05/30/2018 Status: F Source: [place] HEMATOCRIT 9:55 PM [facility] REPOSITORY TYPE CODE TESTS RESULT OUT OF RANGE REFERENCE UNITS LAB L100.1300 13.0-16.5 g/dl Low HGB 8.4 LAB L100.1400 40-54 % Low HCT 24.6 Performed By: #### L100.0600 #### [facility] [address] [place], [place], [address] TROPONIN-I Collected: 05/30/2018 Status: F Source: [place] 7:20 PM [facility] REPOSITORY Order Comment: 'TROP' Serial specimen #1, [...] Not every elevated troponin is indicative of TX. These values should be used with clinical judgement in examining the patient's clinical picture for diagnosis. To establish a diagnosis of TX versus myocardial injury, there must be a demonstrated rise and/or fall in the troponin values, in addition to ischemic symptoms, EKG changes, new regional wall motion abnormality, and/or angiographical evidence. PLEASE NOTE: REFERENCE RANGES EDITED 18 Performed By: #### L501.4010 #### [facility] [address] [place], [address] HH, HEMOGLOBIN AND Collected: 05/30/2018 Status: F Source: [place] HEMATOCRIT 4:10 PM [facility] REPOSITORY TYPE CODE TESTS RESULT OUT OF RANGE REFERENCE UNITS LAB L100.1300 13.0-16.5 g/dl Low HGB 9.2 LAB L100.1400 40-54 % Low HCT 27.1 Performed By: #### L100.0600 #### [facility] [address] [place], [address] BASIC METABOLIC Collected: 05/30/2018 Status: F Source: AJIT PROFILE (BMP) 4:10 PM [facility] REPOSITORY TYPE CODE TESTS RESULT OUT OF [...] GAP 9 Performed By: #### L500.2500 #### [facility] [address] [place], [address] TROPONIN-I Collected: 05/30/2018 Status: F Source: AJIT 4:10 PM [facility] REPOSITORY Order Comment: 'TROP' Serial specimen #1, [...] Not every elevated troponin is indicative of TX. These values should be used with clinical judgement in examining the patient's clinical picture for diagnosis. To establish a diagnosis of TX versus myocardial injury, there must be a demonstrated rise and/or fall in the troponin values, in addition to ischemic symptoms, EKG changes, new regional wall motion abnormality, and/or angiographical evidence. PLEASE NOTE: REFERENCE RANGES EDITED 18 Performed By: #### L501.4010 #### [facility] [address] [place] [address]. [place], [address] TROPONIN-I Collected: 05/30/2018 Status: F Source: [place] 12:30 PM [facility] REPOSITORY Order Comment: 'TROP' Serial specimen #1, [...] Not every elevated troponin is indicative of TX. These values should be used with clinical judgement in examining the patient's clinical picture for diagnosis. To establish a diagnosis of TX versus myocardial injury, there must be a demonstrated rise and/or fall in the troponin values, in addition to ischemic symptoms, EKG changes, new regional wall motion abnormality, and/or angiographical evidence. PLEASE NOTE: REFERENCE RANGES EDITED 18 Performed By: #### L501.4010 #### [facility] [address] [facility] [place], [address] TROPONIN-I Collected: 05/30/2018 Status: F Source: AJIT 9:00 AM [facility] REPOSITORY Order Comment: 'TROP' Serial specimen #1, #2 or #3: 1 TYPE CODE TESTS RESULT OUT OF RANGE REFERENCE UNITS LAB L501.4010 <0.045 ng/mL High 0.594 TROPONIN-I Result Comment: TROPONIN-I EXPECTED VALUES <0.045 Negative 0.045 - 0.590 Consistent with Cardiac Damage > OR = 0.600 Critical Value Not every elevated troponin is indicative of TX. These values should be used with clinical judgement in examining the patient's clinical picture for diagnosis. To establish a diagnosis of TX versus myocardial injury, there must be a demonstrated rise and/or fall in the troponin values, in addition to ischemic symptoms, EKG changes, new regional wall motion abnormality, and/or angiographical evidence. PLEASE NOTE: REFERENCE RANGES EDITED 18 Performed By: #### L501.4010 #### [facility] [address] [place], [address] BLOOD GASES BY [facility] Collected: 05/30/2018 Status: F Source: [place] 7:25 AM [facility] REPOSITORY TYPE CODE TESTS RESULT OUT OF [...] ISTAT 99 Performed By: #### L9000.0800 #### [facility] Point of Care [address] [place], [place] [address] CBC-COMPLETE BLOOD CNT Collected: 05/30/2018 Status: F Source: AJIT NO DIFF 6:30 AM [facility] REPOSITORY TYPE CODE TESTS RESULT OUT OF [...] MPV 10.1 Performed By: #### L100.0500 #### [facility] [address] [place], [place], [address] BASIC METABOLIC Collected: 05/30/2018 Status: F Source: AJIT PROFILE (BMP) 6:30 AM [facility] REPOSITORY TYPE CODE TESTS RESULT OUT OF [...] GAP 13 Performed By: #### L500.2500 #### [facility] [address] [place], [address] PROTHROMBIN TIME W/INR Collected: 05/30/2018 Status: F Source: [place]IT 6:30 AM [facility] REPOSITORY TYPE CODE TESTS RESULT OUT OF RANGE REFERENCE UNITS LAB L300.4150 11.7-14.9 SECONDS High PROTIME 16.1 LAB L300.4200 Normal INR 1.3 Performed By: #### L300.3900, L300.4310 #### [facility] [address] [facility] [address] PARTIAL THROMBOPLAST Collected: 05/30/2018 Status: F Source: [place] TIME 6:30 AM [facility] REPOSITORY TYPE CODE TESTS RESULT OUT OF RANGE REFERENCE UNITS LAB L300.4310 24.1-36.2 Seconds Normal PTT 24.3 Performed By: #### L300.3900, L300.4310 #### [facility] [address] [facility] [place], [address] M R STAPH AUREUS Collected: 05/30/2018 Status: F Source: [place] DNA BY PCR 5:45 AM [facility] REPOSITORY TYPE CODE TESTS RESULT OUT OF RANGE REFERENCE UNITS LAB L8200.1100 Negative Normal MRSA Negative RESULT Performed By: #### L8200.1000 #### [facility] [address] [facility] [address] BLOOD GASES BY CPS Collected: 05/30/2018 Status: F Source: AJIT 5:29 AM [facility] REPOSITORY TYPE CODE TESTS RESULT OUT OF [...] ISTAT 99 Performed By: #### L9000.0800 #### [facility] Point of Care [address] [place] [address] CXR FOR LINE PLACEMENT Observed: 05/30/2018 Status: F Source: AJIT 4:10 AM [facility] REPOSITORY [facility] Imaging Services [address] [place] [address] CXR for Line Placement MR#: [id number] Acct: [id number] Name: HEATHER ESTRADA Hector Rep #: [id number] : 1950 M 68 From: Cleveland Wing MD PCP: Kenton Sánchez MD Status: ADM IN Study: CXR for Line Placement Date of Exam: 05/30/18 Exam# [id number] Ordering Dr: Leah Mcelroy MD STUDY: X-RAY [...] CC: Leah Mcelroy MD; Kenton Sánchez MD Fur Cutting Machine Operator: Signed ABDOMEN SINGLE VIEW Observed: 05/30/2018 Status: F Source: [place] 4:10 AM [facility] REPOSITORY [facility] Imaging Services [address] [place] [address] Abdomen Single View MR#: [id number] Acct: [id number] Name: HEATHER ESTRADA Rep #: [id number] : 1950 M 68 From: Cleveland Wing MD PCP: Kenton Sánchez MD Status: ADM IN Study: Abdomen Single View Date of Exam: 05/30/18 Exam# [id number] Ordering Dr: Leah Mcelroy MD STUDY: X-RAY [...] CC: Leah Mcelroy MD; Kenton Sánchez MD Fur Cutting Machine Operator: Signed OPERATIVE REPORT Observed: 05/30/2018 Status: F Source: [place] 1:34 AM [facility] REPOSITORY [facility] Medical Records Department [address] [place] [address] Operative Report 05/30/18 0128 MR#: [id number] Acct: [id number] Name: HEATHER ESTRADA Rep #: [id number] : 1950 68 From: Claude Khan MD PCP: Kenton Sánchez MD Status: ADM IN Y Location: ICU ICU-1 Report of Operation Date of Procedure: 05/29/18 [...] Kenton Sánchez MD Signed BLOOD GASES BY CPS Collected: 05/30/2018 Status: F Source: [place] 1:32 AM [facility] REPOSITORY TYPE CODE TESTS RESULT OUT OF [...] ISTAT 100 Performed By: #### L9000.0800 #### [facility] Point of Care [address] [place] [address] CBC W/DIFF, AUTOMATED Collected: 05/30/2018 Status: F Source: [place] 1:30 AM [facility] REPOSITORY TYPE CODE TESTS RESULT OUT OF [...] Lymph 0.67 Performed By: #### L100.0100 #### [facility] [address] [place], [place], [address] BASIC METABOLIC Collected: 05/30/2018 Status: F Source: [place]IT PROFILE (BMP) 1:30 AM [facility] REPOSITORY TYPE CODE TESTS RESULT OUT OF [...] 9 GAP Performed By: #### L500.2500 #### [facility] [address] [facility] [place], [address] CHEST 1 VIEW Observed: 05/30/2018 Status: F Source: [place] (PORTABLE) 1:30 AM [facility] REPOSITORY [facility] Imaging Services [address] [place] [address] Chest 1 View (Portable) MR#: [id number] Acct: [id number] Name: HEATHER ESTRADA Rep #: [id number] : 1950 M 68 From: Cleveland Wing MD PCP: Kenton Sánchez MD Status: ADM IN Study: Chest 1 View (Portable) Date of Exam: 05/30/18 Exam# [id number] Ordering Dr: George Rodríguez MD STUDY: X-RAY [...] EDT Tel , Service support , CC: Geogre Rodríguez MD; Kenton Sánchez MD Fur Cutting Machine Operator: Signed CPK TOTAL, CREATINE Collected: 05/30/2018 Status: F Source: [place] 1:30 AM [facility] REPOSITORY Order Comment: Comments: DC when propofol is d/c'd Comments: DC when propofol is d/c'd TYPE CODE TESTS RESULT OUT OF RANGE REFERENCE UNITS LAB L501.3620 39-308 U/L High CPK TOTAL 2991 Performed By: #### L501.3620, L501.5000 #### [facility] [address] [place], [address] TRIGLYCERIDES Collected: 05/30/2018 Status: F Source: [place] 1:30 AM [facility] REPOSITORY Order Comment: Comments: DC when propofol [...] mg/dL Performed By: #### L501.3620, L501.5000 #### [facility] [address] [place], [address] HH, HEMOGLOBIN AND Collected: 05/29/2018 Status: F Source: [place] HEMATOCRIT 10:31 PM [facility] REPOSITORY TYPE CODE TESTS RESULT OUT OF RANGE REFERENCE UNITS LAB L100.1300 13.0-16.5 g/dl Low HGB 9.8 LAB L100.1400 40-54 % Low HCT 30.3 Performed By: #### L100.0600 #### [facility] [address] [place], [address] CBC-COMPLETE BLOOD CNT Collected: 05/29/2018 Status: F Source: [place] NO DIFF 7:37 PM [facility] REPOSITORY Order Comment: Comments: To be done [...] MPV 9.4 Performed By: #### L100.0500 #### [facility] [address] [place], [address] BASIC METABOLIC Collected: 05/29/2018 Status: F Source: AJIT PROFILE (BMP) 7:37 PM [facility] REPOSITORY Order Comment: Comments: To be done [...] GAP 10 Performed By: #### L500.2500 #### [facility] [address] [place], [address] OPERATIVE REPORT Observed: 05/29/2018 Status: F Source: [place] 7:03 PM [facility] REPOSITORY [facility] Medical Records Department [address] [place] [address] Operative Report 05/29/18 1855 MR#: [id number] Acct: [id number] Name: HEATHER ESTRADA Rep #: [id number] : 1950 68 From: Claude Khan MD PCP: Kenton Sánchez MD Status: ADM IN Y Location: [address] Report of Operation Date of Procedure: 05/29/18 [...] SCD's VTE Pharm Prophylaxis ordered?: No 05/29/18 190 <Electronically signed by Claude Khan MD> Date Claude Khan MD CC: Claude Khan MD; Kenton Sánchez MD Signed TYPE AND SCREEN Collected: 05/29/2018 Status: F Source: [place] 12:20 PM [facility] REPOSITORY Order Comment: Reason for Type AND Screen/Red Cells: SURGERY TYPE CODE TESTS RESULT OUT OF RANGE REFERENCE UNITS LAB B10.0800 A Normal BLOOD TYPE GEL POSITIVE LAB B100.4000 Normal Antibody NEGATIVE Screen Performed By: #### B101.7450 #### [facility] [address] [place], [place], [address] RC Collected: 05/29/2018 Status: F Source: [place] 12:20 PM [facility] REPOSITORY TYPE CODE TESTS RESULT OUT OF REFERENCE UNITS RANGE LAB U100.0000 [id number] TRANSFUSED PRODUCT: T AND S with Crossmatch, Red Cells COUNT: 2 Performed By: #### U100.0000 #### [facility] - refer to report for specific site RC Collected: 05/29/2018 Status: F Source: [place] 12:20 PM [facility] REPOSITORY TYPE CODE TESTS RESULT OUT OF REFERENCE UNITS RANGE LAB U100.0000 [id number] TRANSFUSED PRODUCT: T AND S with Crossmatch, Red Cells COUNT: 2 Performed By: #### U100.0000 #### [facility] - refer to report for specific site FFP Collected: 05/29/2018 Status: F Source: [place] 12:20 PM [facility] REPOSITORY TYPE CODE TESTS RESULT OUT OF REFERENCE UNITS RANGE LAB U100.0900 [id number] TRANSFUSED PRODUCT: Fresh Frozen Plasma COUNT: 1 Performed By: #### U100.0900 #### [facility] - refer to report for specific site RC Collected: 05/29/2018 Status: F Source: [place] 12:20 PM [facility] REPOSITORY TYPE CODE TESTS RESULT OUT OF REFERENCE UNITS RANGE LAB U100.0000 [id number] TRANSFUSED PRODUCT: T AND S with Crossmatch, Red Cells COUNT: 1 Performed By: #### U100.0000 #### [facility] - refer to report for specific site KIDNEY PARTIAL/TOTAL Observed: 05/29/2018 Status: F Source: AJIT NEPHRECT 12:00 AM [facility] REPOSITORY Patient: HEATHER ESTRADA : 1950 (68/M) Acct Num: [id number] Phys: Claude Khan MD Unit Num: [id number] Loc: U VAC361-1 Specimen: [id number] Received: 05/30/18 - 3 Spec Type: KIDNEY [...] summary is in compliance with College of [employer] Pathology (CAP) Cancer Protocols Checklist and [place] Joint Committee on Cancer (AJCC), Staging Manual, [...] the mass reveal watkins-yellow hemorrhagic cut surfaces. Remote Mortgage Underwriter sections are submitted in 7 cassettes as [...] lesions. 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 Remote Mortgage Underwriter sections are submitted as follows: 1 - Ureteric and vascular margins of resection, 2 - Renal sinus, 3 - Renal pelvis, 4 AND 5 - Perinephric fat, 6-7 - Kidney. AM:sp 05/31/18 TC: 0 CPT: 19525 x2 HEADER OPERATION: Laparoscopic robotic partial left [...] on file> Performed By: #### PKID #### [facility] [address] [place], [address] 12 LEAD ELECTROCARDIOGRAM Observed: 05/28/2018 Status: F Source: [place]IT 2:35 PM [facility] REPOSITORY [facility] Cardiovascular Services [address] [place] [address] 12 Lead EKG 05/23/18 1029 MR#: [id number] Acct: [id number] Name: HEATHER ESTRADA Rep #: [id number] : 1950 68 From: Avtar Ibarra MD Attending Dr: Erin BROWER,Claude Cooney Status: PRE [facility] Ordering Dr: Claude Khan MD Date: 05/23/18 Location: [facility] Sex: M C Admitted: Test Reason : Blood Pressure : / mmHG Vent. Rate : 046 BPM Atrial Rate : 046 BPM P-R Int : 174 ms QRS Dur : 076 ms QT Int : 438 ms P-R-T Axes : 065 -20 -18 degrees QTc Int : 383 ms Marked sinus bradycardia Abnormal ECG Confirmed by AVTAR IBARRA MD ([id number]), map editor ALBER ALMODOVAR ([id number]) on 05/28/2018 2:35:20 PM Referred By: Claude Khan Confirmed By:AVTAR IBARRA MD 05/28/18 1435 Date Avtar Ibarra MD CC: Claude Khan MD; Kenton Sánchez MD Signed COMPREHENSIVE METABOLIC Collected: 05/23/2018 Status: F Source: [place]IL 11:45 AM [facility] REPOSITORY TYPE CODE TESTS RESULT OUT OF [...] GAP 7 Performed By: #### L500.4050 #### [facility] [address] [place], [place], [address] CBC W/DIFF, AUTOMATED Collected: 05/23/2018 Status: F Source: [place] 11:45 AM [facility] REPOSITORY TYPE CODE TESTS RESULT OUT OF [...] Lymph 1.96 Performed By: #### L100.0100 #### [facility] [address] [facility] [place], [place], [address] CHEST PA AND LATERAL Observed: 05/23/2018 Status: F Source: [place] 11:27 AM [facility] REPOSITORY [facility] Imaging Services [address] [place] [address] Chest PA and Lateral MR#: [id number] Acct: [id number] Name: HEATHER ESTRADA Rep #: [id number] : 1950 M 68 From: Eladio Villanueva MD PCP: Kenton Sánchez MD Status: [facility] Study: Chest PA and Lateral Date of Exam: 05/23/18 Exam# [id number] Ordering Dr: Claude Khan MD STUDY: X-RAY [...] CC: Claude Khan MD; Kenton Sánchez MD Fur Cutting Machine Operator: Signed PROGRESS Observed: 05/09/2018 Status: COMPLETED Source: [place] 10:43 AM [facility] RE[facility]IT[facility] HNO ID: [id number] Author: Silke (Teacher Aide Clerical) Older Service: (none) Author Type: Nurse Practitioner Type: Progress Notes Filed: 05/09/2018 11:20 AM Note Text: CC: Patient presents with: Follow up on MRI HPI Heather Estrada is a 68 year old male who presents today for hospital follow-up and review results of MRI. Facility: [place], [place] Date of visit: 04/12/18 to 04/13/18 [...] renal mass. Plan on having done in [place] because he has a better support system there. Denies dysuria, hesitancy, urgency, frequency or hematuria. Denies any concerns or issues today. REVIEW OF SYSTEMS General: no fevers and no chills PAST MEDICAL HISTORY Diagnosis Date - Elevated PSA - Esophageal reflux [facility]astroes[facility] Procedure Laterality Date - COLONOSCOP W/ OR W/O [facility] SPEC 2002 Colonoscopy - COLONOSCOP W/ OR [...] he plans on having surgery done in [place] he will need to have initial appointment [...] Patient agreeable to treatment plan. Silke Woodruff APRN.FRIEDA CNOV Observed: 05/09/2018 Status: COMPLETED Source: [place] 10:40 AM [facility] REPOSITORY Office Visit (INTMWS) HEATHER ESTRADA ([id number]) 1950 M Date Time Provider Department 05/09/18 [...] follow-up and review results of MRI. Facility: [place], [place] Date of visit: 04/12/18 to 04/13/18 [...] renal mass. Plan on having done in [place] because he has a better support system there. Denies dysuria, hesitancy, urgency, frequency or hematuria. Denies any concerns or issues today. REVIEW OF SYSTEMS General: no fevers and no chills PAST MEDICAL HISTORY Diagnosis Date - Elevated PSA - Esophageal reflux Gastroesophageal reflux - Glaucoma [facility] PAST SURGICAL HISTORY Procedure Laterality Date - [...] he plans on having surgery done in [place] he will need to have initial appointment [...] occur. Patient agreeable to treatment plan. Silke Woodruff, CATERER HELPER.FRIEDA Woodruff APRN.FRIEDA 05/09/2018 11:[address] Nicolas Harp Recommend calling medicare/insurance prior to scheduling Referring Provider: SELF [200] Allergies As of Date: 05/09/2018 (No Known Allergies) Date Reviewed: 05/09/2018 Reviewed by: Tasneem Lala Ed Educational Aide - Fully Assessed Reason for Visit: Follow up on MRI [Other] Primary Visit Diagnosis:Left renal mass [N28.89] Other Visit Diagnosis:Colitis [K52.9] Order(s):CONSULT TO UROLOGY [9038] Order #: [id number]: 1 Prescriptions as of 05/09/2018 Sig: TIMOLOL [...] 05/09/18 HOSP Observed: 11/07/2017 Status: COMPLETED Source: [place] 1:15 PM [facility] REPOSITORY Office Visit OPHT (OPHTMN) HEATHER ESTRADA ([id number]) 1950 M Date Time Provider Department 11/07/17 1:15 PM PRADIP GELLER OPHTMN During your visit today, we recorded the [...] Timolol (yellow) Referring Provider: CARY CONDE (OD) [[id number]] Allergies As of Date: 11/07/2017 (No Known Allergies) Date Reviewed: 11/07/2017 Reviewed by: Pradip Geller - Fully Assessed Reason for Visit: Glaucoma Evaluation [1921] Primary Visit Diagnosis:Primary open angle glaucoma (POAG) of right eye, mild stage [H40.1111] Other Visit Diagnoses:Glaucoma suspect of left eye [H40.002] Cortical senile cataract of both eyes [H25.013] Order(s):IOP MEASUREMENT [] Order #: [id number]: 1 FUTURE PACHYMETRY OU (BOTH EYES) [] Order #: [id number]: 1 FUTURE VISUAL FIELD 24-2 OU (BOTH EYES) [] Order #: [id number]: 1 FUTURE DILATED FUNDUS EXAM [] Order #: [id number]: 1 FUTURE OCT OPTIC NERVE CIRRUS OU (BOTH EYES) [] Order #: [id number]: 1 FUTURE IOP MEASUREMENT [] Order #: [id number]: 1 PACHYMETRY OU (BOTH EYES) [2526880] Order #: [id number]: 1 VISUAL FIELD 24-2 OU (BOTH EYES) [2364784] Order #: [id number]: 1 DILATED FUNDUS EXAM [] Order #: [id number]: 1 OCT OPTIC NERVE CIRRUS OU (BOTH EYES) [8607824] Order #: [id number]: 1 brimonidine (ALPHAGAN) 0.2 % ophthalmic solutionUse 1 Drop in both eyes every 12 hours.Disp: 10 mLRfl: 11 IOP MEASUREMENT [] Order #: [id number]: 1 FUTURE Prescriptions as of 11/07/2017 Sig: [...] 11/07/17 PROGRESS Observed: 11/07/2017 Status: COMPLETED Source: [place] 12:48 PM [facility] [place] REPOSITORY HNO ID: [id number] Author: Pradip Geller Service: (none) Author Type: [...] SEVERITY SOURCE 07/30/2018 Drug No Known Unknown [facility] Allergy/416 Allergies/X09173 Hospital 194736(SNOM 0388(RXNORM) Repository ED CT) Drug NO KNOWN [facility] Class/39377 ALLERGIES [facility] 1003(SNOMED Repository CT) ENCOUNTERS ENCOUNTERS ADMIT/DISCHARGE ACCOUNT ADMITTING ENCOUNTER LOCATION SOURCE NUMBER CLASS 10/24/2018 [id number] Ambulatory [facility] ing:RAD Repository 10/21/2018/10/23/19 [id number] Ambulatory [address] Repository 10/09/2018/10/09/19 [id number] Ambulatory [address] Repository 10/09/2018/10/10/19 [id number] Ambulatory [address] Repository 09/10/2018 [id number] [facility] Repository 09/10/2018 [id number] Ambulatory [facility] ing:CVS Repository 09/09/2018 [id number] Ambulatory [facility] ing:LAB Repository 07/30/2018/07/30/20 [id number] Ambulatory BMSBuilding:Guicho Fong [address].[facility] Repository 07/29/2018 [id number] Ambulatory BMSBuilding:Guicho Fong MS.[facility] Repository 07/09/2018/07/09/20 [id number] Ambulatory [address] Repository 07/05/2018/07/05/20 [id number] Ambulatory [address] Repository 07/05/2018/07/10/20 [id number] Ambulatory [address] Repository 05/30/2018 [id number] Ambulatory BMSBuilding:[place] [facility] Repository 05/29/2018/06/03/20 [id number] Claude Khan Inpatient [address] ing:PCURoom: Repository [id number]: 1 05/29/2018/06/03/20 [id number] Ambulatory BMSBuilding:W [address] Repository 05/29/2018/06/03/20 [id number] Ambulatory BMSBuilding:[place] [address] Repository 05/23/2018/06/03/20 [id number] Ambulatory BMSBuilding:[place] [address] Repository 05/09/2018/05/10/20 [id number] Ambulatory [address] Repository 11/07/2017/11/13/19 [id number] Ambulatory [address] Repository PAYERS PAYERS ENCOUNTER GUARANTOR PAYER SUBSCRIBER SOURCE 10/24/2018 HEATHER Young Primary HEATHER [id number] Insurance:BRENDA PARRA: [facility] MEDICARE [facility] [id number] Number: Repository [address]Aga: (484) [id number] [phone] () Date:[id number] [address]BA: 10/24/2018 Secondary NOT GIVENUNK Ajit Insurance:SELF PAY [facility] Number: Effective Repository Date:2018-10-24 09/10/2018 HEATHER Young Primary HEATHER Young Ajit [id number] Insurance:HUMANA PHILLIPSDOB: Community [address] MEDICARE PPOPolicy [id number], [place] Number: Repository [id number]: 330 [id number] [phone] () Date:[id number] [address] [address]EE: 09/10/2018 Secondary NOT GIVENUNK [place] Insurance:SELF PAY [facility] Number: Effective Repository Date:2018-09-10 09/10/2018 HEATHER Young Primary HEATHER Young [place] [id number] Insurance:HUMANA PHILLIPSDOB: Community [address] MEDICARE [facility] [id number], [place] Number: Repository [id number]: 330 [id number] [phone] () Date:[id number] [address] [address]RS: 09/10/2018 Secondary NOT GIVENUNK [place] Insurance:SELF PAY [facility] Number: Effective Repository Date:2018-07-30 09/09/2018 HEATHER Young Primary HEATHER Young [place] [id number] Insurance:HUMANA PHILLIPSDOB: [facility] [address] MEDICARE OPolicy [id number], [place] Number: Repository [address]Etn: 330 [id number] [phone] () Date:9949-24-91UY [address] [address]WB: 09/09/2018 Secondary NOT GIVENUNK [place] Insurance:SELF PAY [facility] Number: Effective Repository Date:2018-09-09 07/30/2018 HEATHER Young Primary HEATHER Young Ajit [id number] Insurance:HUMANA PHILLIPSDOB: Community [address] MED[address] [id number] Number: Repository [id number]: (330 [id number] [phone] (HP) Date:[id number] [address] [address]LN: 07/30/2018 Secondary NOT GIVENUNK [place] Insurance:SELF PAY [facility] Number: Effective Repository Date:2018-07-30 07/29/2018 HEATHER Young Primary HEATHER Young [place] [id number] Insurance:HUMANA PHILLIPSDOB: Community [address] MED[address] [facility] [id number], [place] Number: Repository [address]Gxn: 330 [id number] [phone] (HP) Date:8095-83-20YV [address] [address]EH: 07/29/2018 Secondary NOT GIVENUNK [place] Insurance:SELF PAY [facility] Number: Effective Repository Date:2018-07-29 05/30/2018 HEATHER W Primary HEATHER Young [place] [id number] Insurance:HUMANA PHILLIPSDOB: Community [address] MED[address] [facility] [id number], [place] Number: Repository [id number]: 330 [id number] [phone] (HP) Date:[id number] [address]BS: 05/30/2018 Secondary NOT GIVENUNK [place] Insurance:SELF PAY [facility] Number: Effective Repository Date:2018-05-30 05/29/2018 HEATHER W Primary HEATHER Young [place] [id number] Insurance:HUMANA PHILLIPSDOB: Community [address] MED[address] [facility] [id number] Number: Repository [phone]: 330 [id number] [phone] (HP) Date:[id number] [address]AN: 05/29/2018 Secondary NOT GIVENUNK [place] Insurance:SELF PAY [facility] Number: Effective Repository Date:2018-05-17 05/29/2018 HEATHER W Primary HEATHER Young [place] [id number] Insurance:HUMANA PHILLIPSDOB: Community [address] MED[address]ARE [facility]Policy [id number], [place] Number: Repository [address]Bdb: 330 [id number] [phone] (HP) Date:[id number] [address] [place] [address]XT: 05/29/2018 Secondary NOT GIVENUNK [place] Insurance:SELF PAY [facility] Number: Effective Repository Date:2018-05-29 05/29/2018 HEATHER W Primary HEATHER Young Ajit [id number] Insurance:HUMANA PHILLIPSDOB: Community [address] MED[address] [facility] [id number], [place] Number: Repository [id number]: 330 [id number] [phone] (HP) Date:[id number] [address] [address]EH: 05/29/2018 Secondary NOT GIVENUNK [place] Insurance:SELF PAY [facility] Number: Effective Repository Date:2018-05-29 05/23/2018 HEATHER W Primary HEATHER [place] [id number] Insurance:HUMANA PHILLIPSDOB: Community [address] MED[address] [facility] [id number], [place] Number: Repository [id number]: 330 [id number] [phone] (HP) Date:[id number] [address] [address]JB: 05/23/2018 Secondary NOT GIVENUNK Ajit Insurance:SELF PAY [facility] Number: Effective Repository Date:2018-05-23
== END ==
PROVIDERS: Family Provider Internal Medicine; PCP Internal Medicine; Referring Provider Urology; Visit Provider Urology
DX: Z85.528 Personal history of other malignant neoplasm of kidney (principal)
CPT/HCPCS: 71046

== ENCOUNTER → 2019-04-11 17:37 | Outpatient (CLI) | payer MEDICARE, SELFPAY ==
[2019-02-24 16:03] VITALS: BMI 26.9
--- NOTE | 2019-04-11 17:38 | CT_ITS ---
STUDY: CT ABDOMEN AND PELVIS WITHOUT CONTRAST REASON FOR EXAM: Male, 69 years old. Left renal cancer and nephrectomy RADIATION DOSAGE (If Supplied By Facility): CTDIvol = ( 13.63 ) mGy, DLP = ( 699.29 ) mGycm TECHNIQUE: Transaxial images were obtained from the dome of the diaphragm to the symphysis pubis without oral contrast, and without intravenous contrast. Sagittal and coronal images were reconstructed. Individualized dose optimization techniques were used for this CT. COMPARISON: Abdominal plain films 30 May 2018 FINDINGS: Examination is limited due to lack of priors and IV contrast. Assessment of renal parenchyma is limited and detection of renal cell carcinoma in the right kidney is not possible. Some limited diagnostic information is available. Lung bases are clear. There is advanced coronary artery disease. Cardiac chambers are normal in size and shape. Pericardium is intact. There is left nephrectomy. Left adrenal is normal. Nephrectomy bed is clear and partially occupied by bowel. There is an ill-defined 1 cm hypodense lesion in the anterior interpolar right renal cortex. There are multiple calcified pyramids with the largest stones measuring up to 5 mm. There is at least 15 smaller stones. There are no ureteral or bladder stones. 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 The vena cava continues along the aorta into the diaphragmatic hiatus and ascends into the chest. There is a separate inferior vena cava arising from the hepatic veins draining into the right atrium. The renal IVC does not drain directly into the atrium. There is no intestinal obstruction. There are bilateral inguinal fat hernias. Osseous structures are intact. There is moderate degenerative and spondylotic thecal sac stenosis at L4-L5. CT/Abdomen/Pelvis without Cont IMPRESSION: 1. Limited examination due to lack of IV contrast. Unable to definitively evaluate renal parenchyma and exclude presence of renal cell carcinoma on the right. Incompletely evaluated 1 cm renal lesion. 2. Multiple small right renal pyramidal and calyceal calcifications. Possibility of metabolic stone forming renal disease or medullary sponge kidney is present. No obstructing calculi. 3. Expected appearance of left nephrectomy. 4. Congenital variant inferior vena cava. This can have implications if surgical or interventional procedures are contemplated. Electronically Signed: Lisy Polo, at 18:13 EDT Tel , Service support ,
== END ==
PROVIDERS: Family Provider Internal Medicine; PCP Internal Medicine; Referring Provider Urology; Visit Provider Urology
DX: C64.2 Malignant neoplasm of left kidney, except renal pelvis (principal)
CPT/HCPCS: 74176

== ENCOUNTER → 2019-04-16 13:02 | Outpatient (CLI) | payer MEDICARE, SELFPAY ==
[2019-02-24 16:03] VITALS: BMI 26.9
--- NOTE | 2019-04-16 13:22 | RAD_ITS ---
STUDY: X-RAY CHEST REASON FOR EXAM: Male, 69 years old. Renal cancer. TECHNIQUE: PA and lateral views of the chest. COMPARISON: October 24, 2018. FINDINGS: The lungs are clear and expanded. There is no demonstrated pleural abnormality. Normal size heart. Normal mediastinum and emerald. Normal visualized pulmonary arteries. Normal visualized aortic arch and descending thoracic aorta. There are diffuse degenerative changes of the visualized thoracic spine. Normal visualized ribs, clavicles, and shoulders. There is no demonstrated abnormality of the visualized soft tissue structures of the upper abdomen. RAD/Chest PA and Lateral IMPRESSION: No acute cardiopulmonary disease or interval change. Electronically Signed: Riley Cleaning DO at 17:59 EDT Tel [phone], Service support ,
== END ==
PROVIDERS: Family Provider Internal Medicine; PCP Internal Medicine; Referring Provider Urology; Visit Provider Urology
DX: C64.2 Malignant neoplasm of left kidney, except renal pelvis (principal)
CPT/HCPCS: 71046

== ENCOUNTER → 2019-04-17 08:24 | Outpatient (CLI) | payer MEDICARE, SELFPAY ==
[2019-02-24 16:03] VITALS: BMI 26.9
[2019-04-17 09:55] LABS: Anion Gap 8 (5-15); BUN 23 mg/dL (7-18); Calcium,Total 9.6 mg/dL (8.5-10.1); Chloride 109 mmol/L (98-107); Creatinine, Serum 1.64 mg/dL (0.70-1.30); EST Glomerular Filtration Rate 45 mL/min (>60); Est Glom Filt Rate - Afr Amer 54 mL/min (>60); Glucose 101 mg/dL (74-106); Potassium 4.5 mmol/L (3.5-5.1); Sodium Level 142 mmol/L (136-145)
== END ==
PROVIDERS: Family Provider Internal Medicine; PCP Internal Medicine; Referring Provider Urology; Visit Provider Urology
DX: C64.9 Malignant neoplasm of unspecified kidney, except renal pelvis (principal)
CPT/HCPCS: 36415; 80048

== ENCOUNTER → 2019-06-27 07:51 | Outpatient (CLI) | payer MEDICARE, SELFPAY ==
[2019-02-24 16:03] VITALS: BMI 26.9
--- NOTE | 2019-06-27 07:52 | ECHOD_ITS ---
Reason For Study: VALVE REPLACEMENT EVAL Procedure This was a 2D Doppler, Color Flow transthoracic echocardiogram. Exam performed in department. Left Ventricle Normal size and thickness. The estimated ejection fraction is 65 %. Stage 1 diastolic dysfunction. No regional wall motion abnormalities noted. Right Ventricle Normal size and thickness. Normal systolic function. Atria Normal left atrium. Normal right atrium. Normal atrial septum. Mitral Valve The mitral valve is structurally normal. No prolapse or stenosis seen. Tricuspid Valve Normal tricuspid valve. Trivial tricuspid valve insufficiency. Right ventricular systolic pressure estimated to be 30 mmHg. Aortic Valve Trisinus/trileaflet aortic valve. Mild focal aortic valve thickening. Mild-Moderate (1-2+) aortic valve insufficiency. Pulmonic Valve Normal pulmonic valve. Great Vessels Normal aortic root. Normal arch. Normal inferior vena cava. Inferior vena cava collapse with sniff. Pericardium/Pleural No pericardial effusion. MMode/2D Measurements & Calculations LVIDd: 4.7 cm IVSd: 0.79 cm Ao root diam: 3.3 cm LVIDs: 3.3 cm LVPWd: 0.79 cm RVDd: 3.6 cm FS: 31.0 % LAV(MOD-bp): 36.7 ml LVAd ap4: 32.0 cm2 SV(MOD-sp4): 62.7 ml LAV(MOD-bp) Indexed: 18.0 ml/m2 EDV(MOD-sp4): 105.5 ml LAV(MOD-sp2): 47.4 ml EDV(sp4-el): 107.4 ml LAV(MOD-sp4): 28.6 ml LVAs ap4: 18.9 cm2 ESV(MOD-sp4): 42.8 ml ESV(sp4-el): 42.9 ml EF(MOD-sp4): 59.5 % EF(sp4-el): 60.0 % SV(sp4-el): 64.5 ml LA A4 area: 12.6 cm2 LA dimension(2D): 3.3 cm RA A4 area: 14.1 cm2 Time Measurements MV dec time: 0.14 sec Doppler Measurements & Calculations MV E max dany: 75.6 cm/sec Lat Peak E' Dany: 8.3 cm/sec Med Peak E' Dany: 7.4 cm/sec MV A max dany: 67.5 cm/sec E/E' lat: 9.1 E/E' med: 10.2 MV E/A: 1.1 Ao V2 max: 129.3 cm/sec AI max dany: 413.2 cm/sec LV V1 max: 111.5 cm/sec Ao max P.7 mmHg AI max P.9 mmHg LV V1 max P.0 mmHg AI dec slope: 216.3 cm/sec2 AI P1/2t: 559.5 msec PA V2 max: 80.6 cm/sec TR max dany: 251.4 cm/sec TR max P.3 mmHg Interpretation Summary The estimated ejection fraction is 65 %. Stage 1 diastolic dysfunction. Mild-Moderate (1-2+) aortic valve insufficiency. Right ventricular systolic pressure estimated to be 30 mmHg. Compared to echo report dated 05/31/2018, no appreciable changes noted. Ordering Physician: Kannan Hassan Referring Physician: SOFÍA SÁNCHEZ Performed By: Tess Jones RDCS
== END ==
PROVIDERS: Family Provider Internal Medicine; PCP Internal Medicine; Referring Provider Internal Medicine Cardiovascular Disease; Visit Provider Internal Medicine Cardiovascular Disease
DX: I35.1 Nonrheumatic aortic (valve) insufficiency (principal)
CPT/HCPCS: 93306

== ENCOUNTER → 2019-10-06 11:51 | Outpatient (CLI) | payer MEDICARE, SELFPAY ==
[2019-09-15 14:23] VITALS: BMI 27.1
--- NOTE | 2019-10-06 12:06 | RAD_ITS ---
HISTORY: KIDNEY CA FOLLOW UP, HX NEPHRECTOMY ADDITIONAL HISTORY: None provided. COMPARISON: 04/16/2019 TECHNIQUE: Frontal and lateral chest radiographs. Number of images including paperwork: 2 FINDINGS: LUNGS AND PLEURA: No consolidation, mass or pleural effusion. CARDIAC SILHOUETTE: Unremarkable. MEDIASTINUM AND EDWINA: Aortic tortuosity. UPPER ABDOMEN: Unremarkable. SKELETON AND SOFT TISSUES: No acute findings. Degenerative changes. Old right mid clavicle fracture. OTHER DEVICES AND HARDWARE: None. RAD/Chest PA and Lateral IMPRESSION: No acute cardiopulmonary abnormality. at 0538 Reported and signed by: Sangeetha Mcpherson MD Electronically Signed: Sangeetha Mcpherson MD at 5:38 EST Tel , Service support ,
[2019-10-06 13:03] LABS: Anion Gap 5 (5-15); BUN 24 mg/dL (7-18); BUN/Creat Ratio 16.8 RATIO (10-20); Calcium,Total 9.2 mg/dL (8.5-10.1); Chloride 106 mmol/L (98-107); Creatinine, Serum 1.43 mg/dL (0.70-1.30); EST Glomerular Filtration Rate 52 mL/min (>60); Est Glom Filt Rate - Afr Amer 63 mL/min (>60); Glucose 103 mg/dL (74-106); Potassium 4.3 mmol/L (3.5-5.1); Sodium Level 138 mmol/L (136-145)
== END ==
LOC: LAB.FUTURE 12:06 → LAB 12:09
PROVIDERS: Family Provider Internal Medicine; PCP Internal Medicine; Referring Provider Urology; Visit Provider Urology
DX: C64.2 Malignant neoplasm of left kidney, except renal pelvis (principal); D41.00 Neoplasm of uncertain behavior of unspecified kidney
CPT/HCPCS: 36415; 71046; 80048

== ENCOUNTER → 2020-04-08 09:34 | Outpatient (CLI) | payer MEDICARE, SELFPAY ==
[2019-09-15 14:23] VITALS: BMI 27.1
--- NOTE | 2020-04-08 10:10 | RAD_ITS ---
STUDY: X-RAY CHEST REASON FOR EXAM: Male, 70 years old. Malignant neoplasm of left kidney TECHNIQUE: PA and lateral views of the chest. COMPARISON: Comparison is made with prior examination dated October 06, 2019. FINDINGS: Hyperinflation. Scattered calcified granulomas. There is no demonstrated pleural abnormality. Normal size heart. Normal mediastinum and emerald. Normal visualized pulmonary arteries. There is atherosclerotic calcification of the aortic arch with tortuosity. There are diffuse degenerative changes of the visualized thoracic spine. Normal visualized ribs, clavicles, and shoulders. There is no demonstrated abnormality of the visualized soft tissue structures of the upper abdomen. RAD/Chest PA and Lateral IMPRESSION: Hyperinflation. There is been no change since prior study. Electronically Signed: Trey King, at 13:06 EDT , Service support ,
[2020-04-08 11:20] LABS: ALB/GLOB Ratio 0.9 RATIO (0.9-2.4); AST(SGOT) 23 U/L (15-37); Alanine Aminotransfer ALT/SGPT 26 U/L (16-61); Albumin, Serum 3.6 g/dL (3.2-5.0); Alkaline Phosphatase 69 U/L (45-117); Anion Gap 6 (5-15); BUN 22 mg/dL (7-18); BUN/Creat Ratio 17.1 RATIO (10-20); Calcium,Total 9.1 mg/dL (8.5-10.1); Chloride 106 mmol/L (98-107); Creatinine, Serum 1.29 mg/dL (0.70-1.30); EST Glomerular Filtration Rate 59 mL/min (>60); Est Glom Filt Rate - Afr Amer 71 mL/min (>60); Globulin 3.8 g/dL (2.2-4.2); Glucose 107 mg/dL (74-106); PSA,Total - Annual Screen 8.67 ng/mL (0.00-4.00); Potassium 4.3 mmol/L (3.5-5.1); Protein, Total 7.4 g/dL (6.4-8.2); Sodium Level 137 mmol/L (136-145)
== END ==
PROVIDERS: PCP Internal Medicine; Referring Provider Urology; Visit Provider Urology
DX: C64.2 Malignant neoplasm of left kidney, except renal pelvis (principal); N18.2 Chronic kidney disease, stage 2 (mild); Z12.5 Encounter for screening for malignant neoplasm of prostate
CPT/HCPCS: 36415; 71046; 80053; 84153; G0103

== ENCOUNTER → 2020-05-04 | Outpatient (CLI) | payer MEDICARE, SELFPAY ==
[2019-09-15 14:23] VITALS: BMI 27.1
--- NOTE | 2020-05-04 | IMM_PTH ---
PATIENT: HEATHER ESTRADA LOC: [facility] U#:[id number] AGE/SX: 70/M ROOM: RE05/04/[address]: Dr. Claude Khan MD : 1950 BED: DIS: 05/04/2020 SPEC #: [id number] RECD: 05/06/20 13:13 STATUS: JOSE REQ #: [id number] JOANIE: 05/04/20 00:[address]: Claude Khan DEPT: IMMUNOHISTOCHEMISTRY RECD BY: Esther Yoder ENTERED: 05/06/20 13:15 SP TYPE: IMMUNO OTHR DR: Dr. Kenton Rendon MD Tissues: A - PROSTATE RIGHT B - PROSTATE RIGHT C - PROSTATE RIGHT E - PROSTATE LEFT F - PROSTATE LEFT Procedures: 34BE12 (add) P40 (add) 34BE12 (initial) PHYSICIAN & INSTITUTION [place] [id number] SPECIMEN INFORMATION: Tissue Source: A - Right prostate apex, B - Right prostate mid, C - Right prostate base, E - Left prostate mid, F - Left prostate base Clinical Info: Elevated PSA Specimen Number: [id number] A, B, C, E & F CPT code: 78756, 77008 x9 METHODOLOGY: Deparaffinized sections of prefer/formalin-fixed tissue or PAP/DQ stained slides are incubated with monoclonal/polyclonal antibodies/oligonucleotide probes. Localization is made via biotin free immunoperoxidase method. Appropriate controls are performed and reacted as expected. Results on target cell population are indicated in the following table: RESULTS: ANTIBODY / CLONE RESULT Block A P40 (BC28) positive 34BE12 (34BE12) positive Block B P40 (BC28) positive 34BE12 (34BE12) positive Block C P40 (BC28) positive 34BE12 (34BE12) positive Block E P40 (BC28) positive 34BE12 (34BE12) positive Block F P40 (BC28) positive 34BE12 (34BE12) positive These tests were developed and their performance characteristics determined by [facility]. They may not have been cleared or approved by the U.S. Food and Drug Administration. The FDA has determined that such clearance or approval is not necessary. The above immunohistochemical/dualISH markers are ordered and reviewed by the Pathologist. INTERPRETATION: A. Right prostate, apex, core biopsy: Benign prostatic tissue. B. Right prostate, mid, core biopsy: Benign prostatic tissue. C. Right prostate, base, core biopsy: Benign prostatic tissue. E. Left prostate, mid, core biopsy: Benign prostatic tissue. F. Left prostate, base, core biopsy: Benign prostatic tissue. AM:nicolás 05/07/20
--- NOTE | 2020-05-04 | PROSBIL_PTH ---
PATIENT: HEATHER ESTRADA LOC: [facility] U#:[id number] AGE/SX: 70/M ROOM: RE05/04/[address]: Dr. Claude Khan MD : 1950 BED: DIS: 05/04/2020 SPEC #: [id number] RECD: 05/05/20 12:05 STATUS: JOSE SARABJIT #: [id number] JOANIE: 05/04/20 00:[address]: Claude Khan DEPT: SURGICAL PATHOLOGY RECD BY: Stephen Garces ENTERED: 05/05/20 12:05 SP TYPE: PROST BX JAMES DR: Dr. Kenton Rendon MD Tissues: A - PROSTATE RIGHT B - PROSTATE RIGHT C - PROSTATE RIGHT D - PROSTATE LEFT E - PROSTATE LEFT F - PROSTATE LEFT Procedures: PROSTATE BX HEADER OPERATION: Prostate biopsy PRE-OP DIAGNOSIS: Elevated PSA TISSUE SUBMITTED: A - Right apex, B - Right mid, C - Right base, D - Left apex, E - Left mid, F - Left base MICROSCOPIC DIAGNOSIS A. Right prostate, apex, core biopsy: Benign prostatic tissue. See comment. B. Right prostate, mid, core biopsy: Benign prostatic tissue. See comment. C. Right prostate, base, core biopsy: Glandular atrophy and mild chronic inflammation. See comment. D. Left prostate, apex, core biopsy: Benign prostatic tissue. E. Left prostate, mid, core biopsy: Glandular atrophy and mild chronic inflammation. See comment. F. Left prostate, base, core biopsy: Benign prostatic tissue. See comment. AM:nicolás 05/06/20 COMMENT A, B, C, E & F - Immunohistochemistry ([id number]) supports the above diagnosis. MICROSCOPIC DESCRIPTION Slides are reviewed. GROSS DESCRIPTION A - Received is one container designated prostate, right apex. The specimen consists of two elongated fragments of light watkins-white soft tissue each measuring 1 cm in length and 0.1 cm in diameter. The specimen is totally submitted in one cassette. B - Received is one container designated prostate, right mid. The specimen consists of two elongated fragments of light watkins-white soft tissue each measuring 1.5 cm in length and 0.1 cm in diameter. The specimen is totally submitted in one cassette. C - Received is one container designated prostate, right base. The specimen consists of two elongated fragments of light watkins-white soft tissue each measuring 1.5 cm in length and 0.1 cm in diameter. The specimen is totally submitted in one cassette. D - Received is one container designated prostate, left apex. The specimen consists of two elongated fragments of light watkins-white soft tissue each measuring 1 cm in length and 0.1 cm in diameter. The specimen is totally submitted in one cassette. E - Received is one container designated prostate, left mid. The specimen consists of two elongated fragments of light watkins-white soft tissue each measuring 1.5 cm in length and 0.1 cm in diameter. The specimen is totally submitted in one cassette. F - Received is one container designated prostate, left base. The specimen consists of two elongated fragments of light watkins-white soft tissue each measuring 1 cm in length and 0.1 cm in diameter. The specimen is totally submitted in one cassette. / AM:nicolás 05/05/20 TC:5 CPT: G0146
== END | disposition home or self-care (01) ==
LOC: LABSPEC 15:47
PROVIDERS: PCP Internal Medicine; Referring Provider Urology; Visit Provider Urology
DX: R97.20 Elevated prostate specific antigen [PSA] (principal)
CPT/HCPCS: 88305; 88341; 88342; G0416

== ENCOUNTER → 2020-11-10 15:31 | Outpatient (CLI) | payer MEDICARE, SELFPAY ==
[2019-09-15 14:23] VITALS: BMI 27.1
--- NOTE | 2020-11-10 15:40 | RAD_ITS ---
STUDY: X-RAY CHEST REASON FOR EXAM: Male, 70 years old. MALIGNANT NEOPLASM OF LEFT KIDNEY DX IN APRIL 2018. TECHNIQUE: Frontal and lateral views of the chest. COMPARISON: 04/08/2020 FINDINGS: There is no new focal consolidation. The lungs remain hyperinflated. Normal size heart. Normal mediastinum and emerald. Normal visualized pulmonary arteries. Normal visualized aortic arch and descending thoracic aorta. There are diffuse degenerative changes of the visualized thoracic spine. There is a stable right clavicular deformity consistent with a healed fracture. There is no demonstrated abnormality of the visualized soft tissue structures of the upper abdomen. RAD/Chest PA and Lateral IMPRESSION: Stable examination demonstrating no acute cardiopulmonary process. Electronically Signed: Bettye Kingsley MD at 16:56 EST Tel , Service support ,
== END ==
PROVIDERS: PCP Internal Medicine; Referring Provider Urology; Visit Provider Urology
DX: C64.2 Malignant neoplasm of left kidney, except renal pelvis (principal)
CPT/HCPCS: 71046

== ENCOUNTER → 2020-11-11 16:18 | Outpatient (CLI) | payer MEDICARE, SELFPAY ==
[2019-09-15 14:23] VITALS: BMI 27.1
[2020-11-11 18:05] LABS: Anion Gap 3 (5-15); BUN 22 mg/dL (7-18); BUN/Creat Ratio 15.9 RATIO (10-20); Calcium,Total 9.4 mg/dL (8.5-10.1); Chloride 109 mmol/L (98-107); Creatinine, Serum 1.38 mg/dL (0.70-1.30); EST Glomerular Filtration Rate 54 mL/min (>60); Est Glom Filt Rate - Afr Amer 65 mL/min (>60); Glucose 90 mg/dL (74-106); PSA,Total- Diagnostic 9.46 ng/mL (0.0-4.0); Potassium 4.5 mmol/L (3.5-5.1); Sodium Level 138 mmol/L (136-145)
== END ==
PROVIDERS: PCP Internal Medicine; Referring Provider Urology; Visit Provider Urology
DX: C64.2 Malignant neoplasm of left kidney, except renal pelvis (principal); R97.20 Elevated prostate specific antigen [PSA]
CPT/HCPCS: 36415; 80048; 84153

== ENCOUNTER → 2021-05-11 15:58 | Outpatient (CLI) | payer MEDICARE, SELFPAY ==
[2019-09-15 14:23] VITALS: BMI 27.1
== END ==
LOC: LAB.FUTURE 15:59 → LAB 15:59
PROVIDERS: PCP Internal Medicine; Referring Provider Urology; Visit Provider Urology
DX: R97.20 Elevated prostate specific antigen [PSA] (principal)
CPT/HCPCS: 36415; 84153

== ENCOUNTER → 2021-05-30 07:50 | Outpatient (CLI) | payer MEDICARE, SELFPAY ==
[2019-09-15 14:23] VITALS: BMI 27.1
--- NOTE | 2021-05-30 07:53 | ECHOD_ITS ---
Reason For Study: Aortic Insuff. Procedure This was a 2D Doppler, Color Flow transthoracic echocardiogram. Exam performed in department. Left Ventricle Normal LV size. The estimated ejection fraction is 60-65 %. No evidence for diastolic dysfunction. No regional wall motion abnormalities noted. Right Ventricle Normal RV size. Normal systolic function. Atria Normal left atrium. Normal right atrium. No doppler evidence for ASD. Mitral Valve There is no mitral valve stenosis. Mild (1+) mitral valve insufficiency. Tricuspid Valve There is no tricuspid stenosis. Trivial tricuspid valve insufficiency. Pulmonary artery systolic pressure is 30 mmHg. Aortic Valve Trisinus/trileaflet aortic valve. There is no aortic stenosis. Moderate (2+) aortic valve insufficiency. Pulmonic Valve There is no pulmonic valvular stenosis. No pulmonic valve insufficiency. Great Vessels Normal aortic root. Pericardium/Pleural No pericardial effusion. MMode/2D Measurements & Calculations LVIDd: 4.7 cm IVSd: 1.0 cm Ao root diam: 3.7 cm LVIDs: 2.8 cm LVPWd: 1.0 cm LA dimension: 3.2 cm RVDd: 3.5 cm FS: 40.3 % LAV(MOD-bp): 46.2 ml LA A4 area: 17.6 cm2 RA A4 area: 15.7 cm2 LAV(MOD-bp) Indexed: 22.6 ml/m2 LAV(MOD-sp2): 44.8 ml LAV(MOD-sp4): 41.4 ml Time Measurements MV dec time: 0.23 sec Doppler Measurements & Calculations MV E max dany: 80.1 cm/sec Lat Peak E' Dany: 9.4 cm/sec Med Peak E' Dany: 7.6 cm/sec MV A max dany: 50.4 cm/sec E/E' lat: 8.6 E/E' med: 10.6 MV E/A: 1.6 MV V2 max: 108.7 cm/sec MV P1/2t max dany: 108.1 cm/sec Ao V2 max: 129.8 cm/sec MV max P.7 mmHg MV P1/2t: 52.5 msec Ao max P.7 mmHg MV V2 mean: 43.8 cm/sec MV dec slope: 602.9 cm/sec2 MV mean P.95 mmHg MVA(P1/2t): 4.2 cm2 MV V2 VTI: 31.5 cm AI max dany: 392.1 cm/sec LV V1 max: 104.2 cm/sec PA V2 max: 82.8 cm/sec AI max P.5 mmHg LV V1 max P.3 mmHg AI dec slope: 135.7 cm/sec2 AI P1/2t: 846.3 msec PI end-d dany: 76.1 cm/sec TR max dany: 252.1 cm/sec TR max P.4 mmHg ECHO/Echo Complete Interpretation Summary The estimated ejection fraction is 60-65 %. No evidence for diastolic dysfunction. Mild (1+) mitral valve insufficiency. Moderate (2+) aortic valve insufficiency. Ordering Physician: Omer Reeder Referring Physician: Kenton Rendon M.D. Performed By: Finesse Farnsworth RCS
== END ==
PROVIDERS: PCP Internal Medicine; Referring Provider Specialist; Visit Provider Specialist
DX: I35.1 Nonrheumatic aortic (valve) insufficiency (principal)
CPT/HCPCS: 93306

== ENCOUNTER → 2022-02-17 | Outpatient (CLI) | payer MEDICARE, SELFPAY ==
[2022-02-17 10:08] LABS: PSA,Total- Diagnostic 8.35 ng/mL (0.0-4.0)
== END | disposition home or self-care (01) ==
LOC: LAB 09:07
PROVIDERS: PCP Internal Medicine; Referring Provider Urology; Visit Provider Urology
DX: R97.20 Elevated prostate specific antigen [PSA] (principal)
CPT/HCPCS: 36415; 84153

== ENCOUNTER → 2023-02-21 | Outpatient (CLI) | payer MEDICARE, SELFPAY ==
[2023-02-21 13:01] LABS: PSA,Total- Diagnostic 9.09 ng/mL (0.0-4.0)
== END | disposition home or self-care (01) ==
LOC: LAB 11:48
PROVIDERS: PCP Internal Medicine; Referring Provider Urology; Visit Provider Urology
DX: R97.20 Elevated prostate specific antigen [PSA] (principal)
CPT/HCPCS: 36415; 84153

== ENCOUNTER → 2024-03-17 | Outpatient (CLI) | payer MEDICARE, SELFPAY ==
[2024-03-17 10:11] LABS: PSA,Total- Diagnostic 8.29 ng/mL (0.0-4.0)
== END | disposition home or self-care (01) ==
PROVIDERS: PCP Internal Medicine; Referring Provider Urology; Visit Provider Urology
DX: R97.20 Elevated prostate specific antigen [PSA] (principal)
CPT/HCPCS: 36415; 84153

== ENCOUNTER 2024-12-30 10:31 | Emergency (ER) | payer MEDICARE, SELFPAY ==
[2024-12-30 10:31] VITALS: BP 151/67; PULSE 95; RESP 14; TEMP 36.6; O2SAT 99
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
--- NOTE | 2024-12-30 11:10 | RAD_ITS ---
EXAM: XR Right Hip With Pelvis When Performed, 2 or 3 Views CLINICAL INDICATION: PAIN TECHNIQUE: Two or three views of the right hip with pelvis when performed. COMPARISON: No relevant prior studies available. FINDINGS: BONES/JOINTS: Mild degenerative change of the hip joint. No acute fracture. No dislocation. SOFT TISSUES: Unremarkable. RAD/HIP, UNI W/ Pelvis 2-3 Views IMPRESSION: Degenerative changes as above. Reading Location: [facility]
[2024-12-30 11:28] VITALS: BMI 26.4
[2024-12-30 12:11] VITALS: BP 151/67; PULSE 95; RESP 16; TEMP 36.6; O2SAT 99
== END 2024-12-30 12:12 | disposition home or self-care (01) ==
PROVIDERS: Emergency Provider Emergency Medicine; PCP Internal Medicine; Visit Provider Emergency Medicine
DX: S76.201A Unspecified injury of adductor muscle, fascia and tendon of right thigh, initial encounter (principal); X58.XXXA Exposure to other specified factors, initial encounter; F17.200 Nicotine dependence, unspecified, uncomplicated
CPT/HCPCS: 73502; 99282

== ENCOUNTER → 2025-04-06 | Outpatient (CLI) | payer MEDICARE, SELFPAY ==
[2025-04-06 10:01] LABS: PSA,Total- Diagnostic 6.13 ng/mL (0.00-4.00)
== END | disposition home or self-care (01) ==
LOC: LAB 08:23
PROVIDERS: PCP Internal Medicine; Referring Provider Urology; Visit Provider Urology
DX: R97.20 Elevated prostate specific antigen [PSA] (principal)
CPT/HCPCS: 36415; 84153